=== PATIENT | male | born 1955 | race Caucasian/White ===

== ENCOUNTER → 2019-07-14 09:28 | Outpatient (CLI) | payer OTHER, SELFPAY ==
[2019-07-14 09:16] VITALS: BMI 42.9
--- NOTE | 2019-07-14 09:28 | RAD_ITS ---
STUDY: X-RAY - RIGHT KNEE REASON FOR EXAM: Chronic pain. TECHNIQUE: 4 view(s) of the knee. COMPARISON: None. FINDINGS: Normal visualized distal femur. Normal visualized proximal tibia and fibula. Normal proximal tibiofibular articulation. There is mild lateral subluxation of the tibia with respect to the femur. There is moderately severe joint space narrowing of the medial femorotibial compartment. Normal lateral femorotibial compartment. There are small marginal osteophytes with mild joint space narrowing of the patellofemoral articulation. The soft tissue structures are unremarkable. RAD/Knee 4 or More Views IMPRESSION: Arthrosis of the medial femorotibial and patellofemoral compartments. Electronically Signed: Dipak Dalton MD at 10:12 EST Tel , Service support ,
--- NOTE | 2019-07-14 09:28 | RAD_ITS ---
STUDY: X-RAY - LEFT KNEE REASON FOR EXAM: Chronic pain. TECHNIQUE: 4 view(s) of the knee. COMPARISON: None. FINDINGS: Normal visualized distal femur. Normal visualized proximal tibia and fibula. Normal proximal tibiofibular articulation. There is mild lateral subluxation of the tibia with respect to the femur. There is moderately severe joint space narrowing of the medial femorotibial compartment. Normal lateral femorotibial compartment. Normal patellofemoral articulation. The soft tissue structures are unremarkable. RAD/Knee 4 or More Views IMPRESSION: Arthrosis of the medial femorotibial compartment. Electronically Signed: Dipak Dalton MD at 10:11 EST Tel , Service support ,
== END ==
PROVIDERS: Family Provider Internal Medicine; PCP Preventive Medicine Occupational Medicine; Referring Provider Orthopaedic Surgery; Visit Provider Orthopaedic Surgery
DX: M25.561 Pain in right knee (principal); M25.562 Pain in left knee
CPT/HCPCS: 73564

== ENCOUNTER 2020-07-04 10:00 | Outpatient (RCR) | payer OTHER, SELFPAY ==
[2020-04-15 13:00] VITALS: BMI 42.9
--- NOTE | 2020-06-08 10:28 | HP.PTEVAL_ITS ---
Patient's Visit Information JOANNE ODELL is a 65 year old M referred to Physical Therapy by Dr. Uzair Malcolm DO with a diagnosis of Hamstring Pain/Tear. Date of Evaluation: 06/08/20 Physical Therapist: Rashmi Johnson DPT - Visit Plan Frequency: 2x /Week Duration: 4 Weeks Plan: Focus on core strength/stabilization and LE strength and flexibility. - Subjective Patient reports that he sees the MD every 90 days for injections in his knees due to OA- he was getting into a lower car and the seat was to far forwards and felt something snap in his right hip- May 17. Feels like the pain is getting better. After he is on his legs for about 15-20 minutes he has a lot of pain down the leg. No problems getting in/out of bigger cars. Pain is located in the right hip and the radiates to the knee. Worst: 5/10 Agg: being on his feet for 15 min or more it starts to get worse. Has to slide his foot instead of bending it to pull through swing phase. Best: 0/10 Eases: sitting. Takes about 20-25 minutes for the pain to go away after he sits down. Describes the pain as dull and achy. Went to the chiro and it did not help. No x-rays or MRI of the hip or lumbar spine. Chiro thinks pinched nerve Dr. Cruz things he snapped a muscle. 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 Has been going to chiro since the 3rd grade- normally goes 1x every 2-3 months but lately he has been going more. Denied MRI wants him to do therapy first. Sleeps in recliner due to leg cramps- so it does not wake him up throughout the night. PMHx/Meds: see scanned in chart. - Objective Posture: FH, RS, increased kyphosis- can correct with verbal cues but does not maintain. Gait: antalgic- decreased stance on the right LE- poor heel/toe pattern and push off. Straight leg on the right. HR/TR: able with UE A- reports pain with TR. SLS: weight shift but unable to SLS. ROM: WFL in all planes of the lumbar spine, hip and LE. Strength: Core: poor, Hip: Flexion: 3+/5, Abd: 4- /5, Extn:4/5, Add: 4-/5, IR/ER: 2+/5 with pain in all directions, Knee: 4+/5 pain with flexion, Ankle: 5/5. Flex: HS: severe, Gastroc: severe. Sensation/Reflex: WFL. Palpatoin: tender along greater troch. Special Test: Slump: positive on the right, Dural Signs: positive on the right, MARIBEL: positive, Scour: negative - Goals Goal 1:: Patient will be I with HEP and progression Goal Time Frame: 4-6 Weeks Goal 2:: Patient will ambulate >300 feet with a normalized gait pattern Goal Time Frame: 4-6 Weeks Goal 3:: Patient will asc/desc 8 stairs with 1 HR and a reciprocal gait pattern Goal Time Frame: 4-6 Weeks Goal 4:: Patient will report no radiating pain for 1 week Goal Time Frame: 4-6 Weeks - Rehabilitation Potential Physical Therapy Diagnosis: Patient presents with hypmobility- he has decreased ROM, strength, flex and muscular endurance leading to poor posture and increased pain with ADL's. Rehabilitation Potential: Fair - Anticipated Interventions Patient/Client Instruction: Educate patient on: Benefits of Fitness Program Therapeutic Exercise to Include: Strength training, Endurance training, Balance training, Agility training, Body mechanics, Postural training, Flexibilty training, Gait and locomotor training, Neuromotor development, Passive ROM, Active ROM, Dynamic Lumbar Stabilization For the Purpose of:: To improve muscle performance and motor function TENS: Yes Cryotherapy (ice pack, ice massage): Yes Thermo therapy (hot pack): Yes Ultrasound (thermal/non thermal): Yes Thank you for the opportunity to evaluate your patient. For Medicare and Medicare HMO plans, please review the plan of care and approve it. It will need to be FAXED BACK to us at [phone] for Medicare purposes. For Medicare only, by signing this I certify the plan of care. Please let me know if there are questions or concerns regarding this plan of care. Physician Signature: Date:
--- NOTE | 2020-07-04 10:38 | HP.PTDCSUM ---
It has been my pleasure to treat JOANNE ODELL referred by Dr. Uzair Malcolm DO, with the diagnosis of Hamstring Pain/Tear for a total of 7 visit(s). Discharge Date: Please see the following information for a summary of their discharge status. Subjective: Patient reports that he is getting better but he had a reaction to the medication for his DM medication- he stopped taking it and its slowly getting better. Is back to work and the 5/10 pain comes and goes when he is up and moving. R hip and HS Pain Intensity (Out of 10): 7 % Improvement: 90 Objective/Function: Posture: FH, RS, increased kyphosis- can correct with verbal cues. Gait: slightly antalgic- decreased stance on the right LE- poor heel/toe pattern and push off. HR/TR: able with UE A. SLS: 5 seconds ROM: WFL in all planes of the lumbar spine, hip and LE. Strength: Core: fair, Hip: Flexion: 4+/5, Abd: 4+/5, Extn:4+/5, Add: 4+/5, IR/ER: 3/5, Knee: 5/5 pain with flexion, Ankle: 5/5. Flex: HS: severe, Gastroc: severe. Sensation/Reflex: WFL. Special Test: Slump: positive on the right, Dural Signs: positive on the right, MARIBEL: positive, Scour: negative Goal 1:: Patient will be I with HEP and progression Goal Progress: Goal Met Goal 2:: Patient will ambulate >300 feet with a normalized gait pattern Goal Progress: Progressing Goal 3:: Patient will asc/desc 8 stairs with 1 HR and a reciprocal gait pattern Goal Progress: Progressing Goal 4:: Patient will report no radiating pain for 1 week Goal Progress: Progressing Plan: Discharge to home exercise program If there are questions or concerns regarding this patient's physical therapy, please feel free to call me at [phone]. Thank you for the referral of this patient. Sincerely, Rashmi Johnson DPT
== END 2020-07-04 19:00 | disposition home or self-care (01) ==
LOC: PT 10:00
PROVIDERS: PCP Preventive Medicine Occupational Medicine; Referring Provider Preventive Medicine Occupational Medicine; Visit Provider Preventive Medicine Occupational Medicine
DX: S76.8 Injury of other specified muscles, fascia and tendons at thigh level (principal)
CPT/HCPCS: 97035; 97110; 97162; 97164

== ENCOUNTER 2025-04-07 08:15 | Outpatient (RCR) | payer OTHER, SELFPAY ==
[2025-03-31 08:11] VITALS: BP 139/79; PULSE 52; RESP 18; TEMP 35.9; BMI 41.9
--- NOTE | 2025-03-31 09:13 | PCM.WC.HP ---
History of Present Illness Date of Service: 03/31/25 Chief Complaint: Full-thickness wound right posterior leg History of Wound: Patient sustained a dog bite approximately 1 to 2 weeks ago was seen at an outside hospital and sent to the wound care center for further evaluation. Progress of Wound: Patient is a 70-year-old diabetic male presenting to wound care center today for follow-up evaluation of full-thickness wound to the posterior right leg secondary to dog bite. Patient was outside of his home where he usually is greeted by the neighbors dog but unfortunately had an incident with the neighbors dog where he sustained a dog bite to the posterior right leg. He was seen at [facility] admitted for 3 days of IV antibiotics. No treatment from a surgical standpoint was performed. Patient was been placed on Augmentin for a few days then due to susceptibility was changed to Keflex but still admits to some redness to the periwound as well as some drainage. Patient has been doing self dressing changes with mupirocin cream and bordered foam with not much improvement. Had blood sugars well-controlled. He does admit to trauma. Denies constitutional symptoms. No other pedal complaints at this time. [facility] Home Medications Medication Instructions Recorded Last Taken Type metformin 500 mg tablet 500 mg PO BID 07/14/19 Unknown History acetaminophen 650 mg 650 mg PO Q12H 03/16/21 Unknown History tablet,extended release (Tylenol Arthritis Pain) carbidopa 10 mg-levodopa 100 mg 3 tab PO QHS 03/16/21 Unknown History tablet multivitamin (Multiple Vitamins 1 tab PO DAILY 03/16/21 Unknown History tablet) tramadol 50 mg tablet 150 mg PO QHS #120 tabs 03/16/21 Unknown History meclizine 25 mg tablet 25 mg PO 09/24/22 Unknown History apixaban 5 mg tablet (Eliquis) 5 mg PO BID 02/11/23 Unknown History clopidogrel 75 mg tablet 75 mg PO DAILY 02/11/23 Unknown History dofetilide 125 mcg capsule 125 mcg PO BID 02/11/23 Unknown History ezetimibe 10 mg tablet 10 mg PO DAILY 02/11/23 Unknown History furosemide 40 mg tablet 40 mg PO BID 02/11/23 Unknown History magnesium oxide 400 mg (241.3 mg 400 mg PO DAILY 02/11/23 Unknown History magnesium) tablet metoprolol succinate 25 mg 25 mg PO DAILY 02/11/23 Unknown History tablet,extended release 24 hr potassium chloride 20 mEq 20 meq PO DAILY 02/11/23 Unknown History tablet,extended release(part/cryst) (Klor-Con M) sacubitril 24 mg-valsartan 26 mg 1 tab PO BID 02/11/23 Unknown History tablet (Entresto) dulaglutide 0.75 mg/0.5 mL 0.75 mg subcut 02/20/23 Unknown History subcutaneous pen injector (Trulicity) cefdinir 300 mg capsule 300 mg PO BID 2 weeks #28 caps 03/31/25 Unknown Rx minocycline 100 mg capsule 100 mg PO BID 2 weeks #29 caps 03/31/25 Unknown Rx Allergy/AdvReac Type Severity Reaction Status Date / Time aspirin AdvReac Mild upset Verified 03/31/25 08:03 stomach ibuprofen AdvReac Mild upset Verified 03/31/25 08:03 stomach Cxyjcqc-FCG-RvW Reductase AdvReac Mild locking Verified 03/31/25 08:03 Inhibitor (Dliejtq-Xny-Pec joints Reductase Inhibitor) simvastatin (From Zocor) AdvReac locking Verified 03/31/25 08:03 joints Surgical History History of heart artery stent Social History Smoking Status: Former smoker Vital Signs Vital Signs Vital Signs: 03/31/25 08:11 Temperature 96.7 F L Temperature Source Temporal Pulse Rate 52 L Respiratory Rate 18 Blood Pressure 139/79 H Blood Pressure Mean 99 Blood Pressure Source Monitor Blood Pressure Position Semi-Fowlers Blood Pressure Location Right Arm Oxygen Delivery Method Room Air Weight Weight: 117.934 kg Body Mass Index (BMI) 41.9 Physical Exam Narrative Vascular: DP and PT pulses are palpable to right lower extremity. CFT is brisk. Skin temperature gradient is warm to warm from proximal ankle to distal digits. Evidence of blanchable erythema to periwound to the right posterior leg. Neurological: Light touch is intact. Protective station is diminished. Patient does respond to painful stimuli. Dermatological: Full-thickness wound to the posterior right leg measuring 3.2 x 4.2 x 2.3 cm. Wound base is fibrogranular nature with tunneling in the 12:00 3:00 and 6:00 location to the posterior right leg. No malodor or drainage. Erythema to periwound which is blanchable. Excisional debridement down to including subcutaneous tissue, fascia and muscle with a number 5 mm dermal curette to the right posterior leg done without incident. Predebridement measurement was eschar. Postdebridement measurement was 3.2 x 4.2 x 2.3 cm. Musculoskeletal: Muscle strength is 5 out of 5 in all quadrants right lower extremity. Mild pain to palpation of the full-thickness wound to the right posterior leg. No pain with calf pressure. Debridement Note Debridement Note Debridement Free Text: Excisional debridement down to including subcutaneous tissue, fascia and muscle with a number 5 mm dermal curette to the right posterior leg done without incident. Predebridement measurement was eschar. Postdebridement measurement was 3.2 x 4.2 x 2.3 cm. Post-Debridement Measurements and Additional Note: Post-Debridement Measurements/Treatment WC - Nurse 1 - General Ulcer Assessment Start: 03/31/25 08:10 Freq: Status: Active Protocol: JOSÉ LUIS Activity Type Activity Date Activity User E-sign Co-sign Detail Recorded Client Recorded Date Recorded By Document 03/31/25 08:11 KW [id number] 03/31/25 08:21 KW 03/31/25 08:11 - Today's Visit Information Type of service Initial Visit Arrival Mode Ambulatory Patient Identification Verified (Name & Yes ) Height and Weight Height 5 ft 6 in Weight 117.934 kg Weight in Pounds 260.0 lbs Weight Measurement Method Estimated by Patient Body Mass Index (BMI) 41.9 BMI Classification Obese Vital Signs Temperature (97.8 F-99.1 F) 96.7 F L Temperature Source Temporal Pulse Rate (60-100) 52 L Pulse Location Monitor Respiratory Rate (12-18) 18 Respiratory rate source Observation Oxygen Delivery Method Room Air Blood Pressure (90/60-120/80) 139/79 H Blood Pressure Mean 99 Source Monitor Position Semi-Fowlers Blood Pressure Location Right Arm History Since Last Visit- (Skip if this is Patient's initial visit) Left Footwear Regular Shoe Right Footwear Regular Shoe Pain Scale: 0-10 Numeric Is Patient Pain Free? Yes Communication Assessment Preferred language Spanish Animal Biologist Required No Able to Read Yes Able to Write Yes Communication Tools None Caregiver Communication Skills No Impairment Impairment Right Hearing Abillity Normal Left Hearing Abillity Normal Visual Assistive Devices Glasses Teaching Assessment Preferences Verbal,Written, Demonstration Barriers to Learning None Readiness To Learn Excellent Willingness to Engage in Self Management High Activies Readiness to Engage in Self Management High Activities Anxiety Level Calm Cooperation Cooperative Perception Coherent Interest in Health Problem Asks Questions Education Importance Acknowledges Need Does Patient Smoke tobacco or other Yes substances Smoking Status Former smoker Is Patient Diabetic Yes Functional Assessment Recent Decline in Ability to Perform Denies Any Declines WC - Nurse 1 - General Ulcer Measurement Start: 03/31/25 08:10 Freq: Status: Active Protocol: Activity Type Activity Date Activity User E-sign Co-sign Detail Recorded Client Recorded Date Recorded By Document 03/31/25 08:11 NAOMI [id number] 03/31/25 08:21 NAOMI 03/31/25 08:11 Wound Center Nurse 1 #1 r post le cluster -Current Size (cm) - Length 4 -Current Size (cm) - Width 6 -Current Size (cm) - Depth 0.2 -Total Square Cm 24 -Date of Last Picture (Recall this 03/31/25 field) -Exudate Amt None Present -Wound Margin Distinct, Outline Attached -Granulation Amt None Present (0 %) -Necrosis Amt Large (67-100%) -Necrotic Tissue Type Adherent Slough -Texture (Armida-wound Skin Appearance) Assessed -Moisture (Armida-wound Skin Appearance) Assessed -Color (Armida-wound Skin Appearance) Assessed, Erythema -Temperature (Armida-wound Skin No Abnormality Appearance) (Pt Warm) -Tenderness on Palpation (Armida-wound No Skin Appearance) -Ulcer Cleansing Soap and Water -Foul Odor after Cleansing No -Anesthetic Used 5% Lidocaine Gel Right Calf (cm) 41 Right Ankle (cm) 27 - Nurse 2 - General Ulcer CM Notes Start: 03/31/25 08:10 Freq: Status: Active Protocol: Activity Type Activity Date Activity User E-sign Co-sign Detail Recorded Client Recorded Date Recorded By Document 03/31/25 08:36 ASAD [id number] 03/31/25 08:45 ASAD 03/31/25 08:36 Wound Center Nurse 2 #1 r post le cluster -Time 08:41 -Correct Patient Yes -Correct Side, Site, Position Yes -Correct Procedure Yes -Procedure Performed Yes -Type of Procedure Debridement -Clinical Debridement Muscle / Fascia -Tissue Removed Muscle -Post Debridement (cm) - Length 3.2 -Post Debridement (cm) - Width 4.2 -Post Debridement (cm) - Depth 2.3 -Total Square (Post) (cm) 13.44 -Area of Debridement (cm) - Length 3.2 -Area of Debridement (cm) - Width 4.2 -Total Square (Area) (cm) 13.44 -Tunneling No -Undermining/Tunneling No -Circular Undermining No -Wound/Ulcer Outcome Not Healed -Ulcer Cleansing Rinsed/ Irrigated with Saline -Foul Odor after Cleansing No -Bioengineered Tissue No -Bleeding Controlled with Pressure -Treatment Response Procedure Tolerated Well -Offloading No -Debridement - Muscle / Fascia, 1st Yes 20sq cm Pain Scale: 0-10 Numeric Is Patient Pain Free? Yes - Nurse 3 - General Ulcer D/C NN Start: 03/31/25 08:10 Freq: Status: Active Protocol: Activity Type Activity Date Activity User E-sign Co-sign Detail Recorded Client Recorded Date Recorded By Document 03/31/25 08:56 [id number] 03/31/25 09:04 03/31/25 08:56 Wound Care Center Nurse 3 #1 r post le cluster -Other Dressing betadine gauze -Primary Dressing Covered/Secured with Dry Gauze & Roll Gauze, Secured with Tape RLE -Tubular Bandage Double Layer -Size of Tubigrip Used Size E -Size E ($) 2 Pain Scale: 0-10 Numeric Is Patient Pain Free? 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 All findings were discussed with the patient. All questions were answered to the patient's satisfaction. Excisional debridement down to including subcutaneous tissue, fascia and muscle with a number 5 mm dermal curette to the right posterior leg done without incident. Predebridement measurement was eschar. Postdebridement measurement was 3.2 x 4.2 x 2.3 cm. The area was flushed with sterile saline and culture was taken. The area was dressed with Betadine soaked gauze dry sterile dressing and compression wrap. I received a fax from the patient's office where the culture was taken and showed evidence of polymicrobial growth with susceptibility to cephalosporins and minocycline. The patient will be placed on cefdinir 300 mg twice daily for 2 weeks as well as minocycline 100 mg twice daily for 2 weeks. Educated the patient to take a probiotic. Educated patient on strict blood sugar control. If the patient is not improving in the next 1 to 2 weeks we will recommend surgical washout. Follow-up at the wound care center with Dr. Conte in 1 week. (2) Chronic painful diabetic polyneuropathy: CODE(S): E11.42 - Type 2 diabetes mellitus with diabetic polyneuropathy
--- NOTE | 2025-04-01 08:17 | WC ---
PHOTO-R POST LE 03/31/25
[2025-04-07 08:08] VITALS: BP 138/71; PULSE 53; RESP 18; TEMP 36; BMI 41.9
--- NOTE | 2025-04-07 10:59 | PCM.WC.PN ---
History of Present Illness Date of Service: 04/07/25 Chief Complaint: Full-thickness wound right posterior leg History of Wound: Patient sustained a dog bite approximately 1 to 2 weeks ago was seen at an outside hospital and sent to the wound care center for further evaluation. Progress of Wound: Stable full-thickness wound posterior right ankle Subjective Subjective Patient is a 70-year-old diabetic male presenting to wound care center today for follow-up evaluation of full-thickness wound to posterior right leg secondary to a dog bite. Patient has been taking the antibiotics as prescribed. He is doing dressing changes daily as discussed. His blood sugars well-controlled. He denies any new onset of trauma. Denies constitutional symptoms. No other pedal complaints at this time. Objective Data Objective Data Vital Signs: Vital Signs Temp Pulse Resp BP O2 Del Method 96.8 F L 53 L 18 138/71 H Room Air 04/07/25 08:08 04/07/25 08:08 04/07/25 08:08 04/07/25 08:08 04/07/25 08:08 Oxygen Delivery Method Room Air Weight: 117.934 kg Body Mass Index (BMI) 41.9 Lab / Micro Data Micro: Microbiology 03/31/25 08:40 Ulcer, Decubitus - Leg, Right Gram Stain - Final 03/31/25 08:40 Ulcer, Decubitus - Leg, Right Wound Culture - Final Providencia rettgeri Staphylococcus epidermidis Yeast, not Juliet albicans 03/31/25 08:40 Ulcer, Decubitus - Leg, Right Anaerobic Culture - Preliminary Checking for anaerobes, further studies to follow. Physical Exam Narrative Vascular: DP and PT pulses are palpable to right lower extremity. CFT is brisk. Skin temperature gradient is warm to warm from proximal ankle to distal digits. Periwound erythema which is blanchable and has improved since previous visit. Neurological: Light touch is intact. Protective station is diminished. Patient does respond to painful stimuli. Dermatological: Full-thickness wound to the posterior right leg measuring 3.0 x 3.7 x 2.0 cm. Wound base is fibrogranular nature. Tunneling only in the 6:00 direction. No malodor. No drainage. Periwound erythema is blanchable as well as improved. Excisional debridement down to including subcutaneous tissue, fascia and muscle with a number 5 mm dermal curette to the right posterior leg done without incident. Predebridement measurement was 2.8 x 3.5 x 0.8 cm. Postdebridement measurement was 3.0 x 3.7 x 2.0 cm. Musculoskeletal: Muscle strength is 5 out of 5 in all quadrants right lower extremity. Mild pain to palpation of the full-thickness wound to the right posterior leg. No pain with calf pressure. Debridement Note Debridement Note Debridement Free Text: Excisional debridement down to including subcutaneous tissue, fascia and muscle with a number 5 mm dermal curette to the right posterior leg done without incident. Predebridement measurement was 2.8 x 3.5 x 0.8 cm. Postdebridement measurement was 3.0 x 3.7 x 2.0 cm. 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 ) Arrival Mode Ambulatory Ambulatory Accompanied by brother Patient Identification Verified (Name & Yes Yes ) Height and Weight Height 5 ft 6 in Weight 117.934 kg Weight in Pounds 260.0 lbs Weight Measurement Method Estimated by Patient Body Mass Index (BMI) 41.9 41.9 BMI Classification Obese Obese Vital Signs Temperature (97.8 F-99.1 F) 96.7 F L 96.8 F L Temperature Source Temporal Temporal Pulse Rate (60-100) 52 L 53 L Pulse Location Monitor Monitor Respiratory Rate (12-18) 18 18 Respiratory rate source Observation Observation Oxygen Delivery Method Room Air Room Air Blood Pressure (90/60-120/80) 139/79 H 138/71 H Blood Pressure Mean (mm Hg) 99 93 Source Monitor Monitor Position Semi-Fowlers Sitting Blood Pressure Location Right Arm Left Arm History Since Last Visit- (Skip if this is Patient's initial visit) Have you changed medications since your No last visit? Any new allergies or adverse reactions No Had a fall/change in ADL's that may No increase risk of falls Signs or symptoms of abuse and/or No neglect since last visit Have you been in the hospital since your No last visit? Has dressing in place as prescribed Yes Has compression in place as prescribed Yes Has offloadiing in place as prescribed N/A Experienced any changes in pain level or No management Left Footwear Regular Shoe Regular Shoe Right Footwear Regular Shoe Regular Shoe Pain Scale: 0-10 Numeric Is Patient Pain Free? 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 Required No Able to Read Yes Able to Write Yes Communication Tools None Caregiver Communication Skills No Impairment Impairment Right Hearing Abillity Normal Left Hearing Abillity Normal Visual Assistive Devices Glasses Teaching Assessment Preferences Verbal,Written, Demonstration Barriers to Learning None Readiness To Learn Excellent Willingness to Engage in Self Management High Activies Readiness to Engage in Self Management High Activities Anxiety Level Calm Cooperation Cooperative Perception Coherent Interest in Health Problem Asks Questions Education Importance Acknowledges Need Does Patient Smoke tobacco or other Yes substances Smoking Status Former smoker Is Patient Diabetic Yes Functional Assessment Recent Decline in Ability to Perform Denies Any Declines WC - Nurse 1 - General Ulcer Measurement Start: 03/31/25 08:10 Freq: Status: Active Protocol: Activity Type Activity Date Activity User E-sign Co-sign Detail Recorded Client Recorded Date Recorded By Document 03/31/25 08:11 [id number] 03/31/25 08:21 KW Document 04/07/25 08:08 [id number] 04/07/25 08:16 KW 03/31/25 04/07/25 08:11 08:08 Wound Center Nurse 1 #1 r post le cluster -Current Size (cm) - Length 4 3.5 -Current Size (cm) - Width 6 5 -Current Size (cm) - Depth 0.2 2 -Total Square Cm 24 17.5 -Date of Last Picture (Recall this 03/31/25 04/07/25 field) -Exudate Amt None Present Small -Exudate Type Serosanguineous -Wound Margin Distinct, Thickened Outline Attached -Granulation Amt None Present (0 Medium (34-66%) %) -Granulation Quality [place] -Necrosis Amt Large (67-100%) Medium (34-66%) -Necrotic Tissue Type Adherent Slough Adherent Slough -Texture (Armida-wound Skin Appearance) Assessed Assessed -Moisture (Armida-wound Skin Appearance) Assessed Assessed -Color (Armida-wound Skin Appearance) Assessed, Assessed Erythema -Temperature (Arm[place]-wound Skin No Abnormality No Abnormality Appearance) (Pt Warm) (Pt Warm) -Tenderness on Palpation (Armida-wound No No Skin Appearance) -Ulcer Cleansing Soap and Water Soap and Water -Foul Odor after Cleansing No No -Anesthetic Used 5% Lidocaine 5% Lidocaine Gel Gel Right Calf (cm) 41 43 Right Ankle (cm) 27 22.5 - Nurse 2 - General Ulcer CM Notes Start: 03/31/25 08:10 Freq: Status: Active Protocol: Activity Type Activity Date Activity User E-sign Co-sign Detail Recorded Client Recorded Date Recorded By Document 03/31/25 08:36 [id number] 03/31/25 08:45 Document 04/07/25 08:24 [id number] 04/07/25 08:26 03/31/25 04/07/25 08:36 08:24 Wound Center Nurse 2 #1 r post le cluster -Time 08:41 08:24 -Correct Patient Yes Yes -Correct Side, Site, Position Yes Yes -Correct Procedure Yes Yes -Procedure Performed Yes Yes -Type of Procedure Debridement Debridement -Clinical Debridement Muscle / Fascia Muscle / Fascia -Tissue Removed Muscle Muscle -Post Debridement (cm) - Length 3.2 3.0 -Post Debridement (cm) - Width 4.2 3.7 -Post Debridement (cm) - Depth 2.3 2 -Total Square (Post) (cm) 13.44 11.10 -Area of Debridement (cm) - Length 3.2 3 -Area of Debridement (cm) - Width 4.2 3.7 -Total Square (Area) (cm) 13.44 11.1 -Tunneling No No -Undermining/Tunneling No No -Circular Undermining No No -Wound/Ulcer Outcome Not Healed Not Healed -Ulcer Cleansing Rinsed/ Rinsed/ Irrigated with Irrigated with Saline Saline -Foul Odor after Cleansing No No -Bioengineered Tissue No No -Bleeding Controlled with Pressure Pressure -Treatment Response Procedure Procedure Tolerated Well Tolerated Well -Offloading No No -Debridement - Muscle / Fascia, 1st Yes Yes 20sq cm Pain Scale: 0-10 Numeric Is Patient Pain Free? Yes Yes - Nurse 3 - General Ulcer D/C NN Start: 03/31/25 08:10 Freq: Status: Active Protocol: Activity Type Activity Date Activity User E-sign Co-sign Detail Recorded Client Recorded Date Recorded By Document 03/31/25 08:56 KW [id number] 03/31/25 09:04 KW Document 04/07/25 08:36 KW [id number] 04/07/25 08:36 KW 03/31/25 04/07/25 08:56 08:36 Wound Care Center Nurse 3 #1 r post le cluster -Other Dressing betadine gauze betadine soaked gauze -Primary Dressing Covered/Secured with Dry Gauze & Dry Gauze & Roll Gauze, Roll Gauze, Secured with Secured with Tape Tape RLE -Tubular Bandage Double Layer Double Layer -Size of Tubigrip Used Size E Size E -Size E ($) 2 2 Pain Scale: 0-10 Numeric Is Patient Pain Free? 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 All findings were discussed with the patient. All questions were answered to the patient's satisfaction. Excisional debridement down to including subcutaneous tissue, fascia and muscle with a number 5 mm dermal curette to the right posterior leg done without incident. Predebridement measurement was 2.8 x 3.5 x 0.8 cm. Postdebridement measurement was 3.0 x 3.7 x 2.0 cm. The area was wiped clean and patted dry. Betadine soaked gauze followed by dry sterile dressing compression wrap was donned to the right lower extremity. Patient continue daily dressing changes. Patient will continue oral antibiotics as prescribed until gone. Educated patient on strict blood sugar control. No plan for surgical intervention at this time. Will continue to monitor progression of wound and determine when surgery will be necessary. Follow-up at the wound care center with Dr. Conte in 1 week. (2) Chronic painful diabetic polyneuropathy: CODE(S): E11.42 - Type 2 diabetes mellitus with diabetic polyneuropathy
--- NOTE | 2025-04-08 09:26 | WC ---
PHOTO-RIGHT POST LE 04/07/25
== END 2025-04-08 23:59 | disposition home or self-care (01) ==
LOC: WC 08:15
PROVIDERS: PCP Nurse Practitioner Family; Referring Provider Nurse Practitioner Family; Visit Provider Podiatrist Foot & Ankle Surgery
DX: E11.622 Type 2 diabetes mellitus with other skin ulcer (principal); L97.813 Non-pressure chronic ulcer of other part of right lower leg with necrosis of muscle; E11.42 Type 2 diabetes mellitus with diabetic polyneuropathy; Z79.899 Other long term (current) drug therapy; Z87.891 Personal history of nicotine dependence; Z79.02 Long term (current) use of antithrombotics/antiplatelets; Z79.85 Long-term (current) use of injectable non-insulin antidiabetic drugs; Z95.5 Presence of coronary angioplasty implant and graft
CPT/HCPCS: 11043; 87070; 87075; 87077; 87186; 87205; 99214; G0463

== ENCOUNTER 2025-05-05 08:15 | Outpatient (RCR) | payer OTHER, SELFPAY ==
[2025-04-14 08:07] VITALS: BP 125/61; PULSE 97; RESP 14; TEMP 35.8
--- NOTE | 2025-04-14 08:28 | PCM.WC.PN ---
History of Present Illness Date of Service: 04/14/25 Chief Complaint: Full-thickness wound right posterior leg History of Wound: Patient sustained a dog bite approximately 1 to 2 weeks ago was seen at an outside hospital and sent to the wound care center for further evaluation. Progress of Wound: Stable full-thickness wound posterior right leg no sign of infection. Subjective Subjective Patient is a 70-year-old diabetic male presenting to wound care center today follow-up evaluation of full-thickness wound secondary to dog bite to the posterior right leg. Patient has been compliant with dressing changes. He admits improvement to the wound. He is on his last antibiotics. He denies any new onset of trauma. He denies constitutional symptoms. No other pedal complaints at this time. Objective Data Objective Data Vital Signs: Vital Signs Temp Pulse Resp BP 96.5 F L 97 14 125/61 H 04/14/25 08:07 04/14/25 08:07 04/14/25 08:07 04/14/25 08:07 Lab / Micro Data Micro: Microbiology 03/31/25 08:40 Ulcer, Decubitus - Leg, Right Gram Stain - Final 03/31/25 08:40 Ulcer, Decubitus - Leg, Right Wound Culture - Final Providencia rettgeri Staphylococcus epidermidis Yeast, not Juliet albicans 03/31/25 08:40 Ulcer, Decubitus - Leg, Right Anaerobic Culture - Preliminary Checking for anaerobes, further studies to follow. Physical Exam Narrative Vascular: DP and PT pulses are palpable to right lower extremity. CFT is brisk. Skin temperature gradient is warm to warm from proximal ankle to distal digits. Periwound erythema which is blanchable and has improved since previous visit. +1 pitting edema to the right lower extremity. Neurological: Light touch is intact. Protective station is diminished. Patient does respond to painful stimuli. Dermatological: Full-thickness wound to the posterior right leg measuring 3.1 x 3.9 x 0.3 cm. Wound base is fibrogranular nature. No tunneling. No malodor. No drainage. Excisional debridement down to including subcutaneous tissue, fascia and muscle with a number 5 mm dermal curette to the right posterior leg done without incident. Predebridement measurement was 3.0 x 3.7 x 0.2 cm. Postdebridement measurement was 3.1 x 3.9 x 0.3 cm. Musculoskeletal: Muscle strength is 5 out of 5 in all quadrants right lower extremity. No pain to palpation to full-thickness wound. No pain with calf pressure. Debridement Note Debridement Note Debridement Free Text: Excisional debridement down to including subcutaneous tissue, fascia and muscle with a number 5 mm dermal curette to the right posterior leg done without incident. Predebridement measurement was 3.0 x 3.7 x 0.2 cm. Postdebridement measurement was 3.1 x 3.9 x 0.3 cm. 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 Any new allergies or adverse reactions No Had a fall/change in ADL's that may No increase risk of falls Signs or symptoms of abuse and/or No neglect since last visit Have you been in the hospital since your No last visit? Has dressing in place as prescribed Yes Has compression in place as prescribed Yes Has offloadiing in place as prescribed No Experienced any changes in pain level or No management Pain Scale: 0-10 Numeric Is Patient Pain Free? Yes CHRISTOPHE - Nurse 1 - General Ulcer Measurement Start: 04/14/25 08:07 Freq: Status: Active Protocol: Activity Type Activity Date Activity User E-sign Co-sign Detail Recorded Client Recorded Date Recorded By Document 04/14/25 08:07 ML [id number] 04/14/25 08:17 ML 04/14/25 08:07 Wound Center Nurse 1 #1 r post le cluster -Current Size (cm) - Length 3.5 -Current Size (cm) - Width 4.0 -Current Size (cm) - Depth 0.3 -Total Square Cm 14.00 -Date of Last Picture (Recall this 04/14/25 field) -Photo Taken Yes -Epithelialization Small 1-33% -Tunneling No -Undermining/Tunneling No -Circular Undermining No -Exudate Amt Medium -Exudate Type Serosanguineous -Wound Margin Distinct, Outline Attached -Granulation Amt Medium (34-66%) -Granulation Quality [place] -Necrosis Amt Medium (34-66%) -Texture (Armida-wound Skin Appearance) Assessed -Moisture (Armida-wound Skin Appearance) Assessed -Color (Armida-wound Skin Appearance) Assessed -Temperature (Arm[place]-wound Skin No Abnormality Appearance) (Pt Warm) -Tenderness on Palpation (Armida-wound No Skin Appearance) -Ulcer Cleansing Soap and Water -Foul Odor after Cleansing No -Anesthetic Used 5% Lidocaine Gel WC - Nurse 2 - General Ulcer CM Notes Start: 04/14/25 08:07 Freq: Status: Active Protocol: Activity Type Activity Date Activity User E-sign Co-sign Detail Recorded Client Recorded Date Recorded By Document 04/14/25 08:24 JF [id number] 04/14/25 08:26 JF 04/14/25 08:24 Wound Center Nurse 2 -Time 08:24 -Correct Patient Yes -Correct Side, Site, Position Yes -Correct Procedure Yes -Procedure Performed Yes -Type of Procedure Debridement -Clinical Debridement Subcutaneous -Tissue Removed Subcutaneous -Post Debridement (cm) - Length 3.1 -Post Debridement (cm) - Width 3.9 -Post Debridement (cm) - Depth 0.3 -Total Square (Post) (cm) 12.09 -Area of Debridement (cm) - Length 3.0 -Area of Debridement (cm) - Width 3.9 -Total Square (Area) (cm) 11.70 -Tunneling No -Undermining/Tunneling No -Circular Undermining No -Wound/Ulcer Outcome Not Healed -Ulcer Cleansing Rinsed/ Irrigated with Saline -Foul Odor after Cleansing No -Bioengineered Tissue No -Bleeding Controlled with Pressure -Treatment Response Procedure Tolerated Well -Offloading No -Debridement - Subq, 1st 20sq cm Yes Pain Scale: 0-10 Numeric Is Patient Pain Free? 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 All findings were discussed with the patient. All questions were answered to the patient's satisfaction. Excisional debridement down to including subcutaneous tissue, fascia and muscle with a number 5 mm dermal curette to the right posterior leg done without incident. Predebridement measurement was 3.0 x 3.7 x 0.2 cm. Postdebridement measurement was 3.1 x 3.9 x 0.3 cm. The area was wiped clean and patted dry. Betadine soaked gauze followed by dry sterile dressing compression wrap was donned to the right lower extremity. Patient continue daily dressing changes. Patient will finish all his antibiotics as prescribed. Will begin authorization to the patient insurance for skin graft substitute due to the size and depth of the wound as well as to aid in efficient healing. Follow-up at the wound care center with Dr. Conte in 1 week. (2) Chronic painful diabetic polyneuropathy: CODE(S): E11.42 - Type 2 diabetes mellitus with diabetic polyneuropathy
--- NOTE | 2025-04-15 09:45 | WC ---
PHOTO-RIGHT POST LE 04/14/25
[2025-04-21 08:03] VITALS: BP 117/67; PULSE 55; RESP 18; TEMP 36.2
--- NOTE | 2025-04-21 08:37 | PN.PCM_ITS ---
History of Present Illness Date of Service: 04/21/25 Chief Complaint: Full-thickness wound right posterior leg History of Wound: Patient sustained a dog bite approximately 1 to 2 weeks ago was seen at an outside hospital and sent to the wound care center for further evaluation. Progress of Wound: Stable full-thickness wound posterior right leg no sign of infection. Subjective Subjective Patient is a 70-year-old diabetic male presenting to wound care center today for evaluation of posterior right leg wound. Patient has been doing dressing changes as discussed. He notes improvement to the wound. He mitts to swelling and some discomfort especially when standing on his feet for long peers of time. Overall he is grateful for his care. His blood sugars well-controlled. He denies trauma. Denies constitutional symptoms. Other pedal complaints at this time. Objective Data Objective Data Vital Signs: Vital Signs Temp Pulse Resp BP O2 Del Method 97.2 F L 55 L 18 117/67 Room Air 04/21/25 08:03 04/21/25 08:03 04/21/25 08:03 04/21/25 08:03 04/21/25 08:03 Oxygen Delivery Method Room Air Lab / Micro Data Micro: Microbiology 03/31/25 08:40 Ulcer, Decubitus - Leg, Right Gram Stain - Final 03/31/25 08:40 Ulcer, Decubitus - Leg, Right Wound Culture - Final Providencia rettgeri Staphylococcus epidermidis Yeast, not Juliet albicans 03/31/25 08:40 Ulcer, Decubitus - Leg, Right Anaerobic Culture - Preliminary Checking for anaerobes, further studies to follow. Physical Exam Narrative Vascular: DP and PT pulses are palpable to right lower extremity. CFT is brisk. Skin temperature gradient is warm to warm from proximal ankle to distal digits. Periwound erythema which is blanchable and has improved since previous visit. +1 pitting edema to the right lower extremity. Neurological: Light touch is intact. Protective station is diminished. Patient does respond to painful stimuli. Dermatological: Full-thickness wound to the posterior right leg measuring 4.0 x 4.2 x 0.4 cm. Wound base is fibrogranular nature. No tunneling. No malodor. No drainage. Excisional debridement down to including subcutaneous tissue, fascia and muscle with a number 5 mm dermal curette to the right posterior leg done without incident. Predebridement measurement was 3.8 x 4.0 x 0.3 cm. Postdebridement measurement was 4.0 x 4.2 x 0.4 cm. Musculoskeletal: Muscle strength is 5 out of 5 in all quadrants right lower ext remity. No pain to palpation to full-thickness wound. No pain with calf pressure. Debridement Note Debridement Note Debridement Free Text: Excisional debridement down to including subcutaneous tissue, fascia and muscle with a number 5 mm dermal curette to the right posterior leg done without incident. Predebridement measurement was 3.8 x 4.0 x 0.3 cm. Postdebridement measurement was 4.0 x 4.2 x 0.4 cm. Post-Debridement Measurements and Additional Note: Post-Debridement Measurements/Treatment WC - Nurse 1 - General Ulcer Assessment Start: 04/14/25 08:07 Freq: Status: Active Protocol: JOSÉ LUIS Activity Type Activity Date Activity User E-sign Co-sign Detail Recorded Client Recorded Date Recorded By Document 04/14/25 08:07 ML [id number] 04/14/25 08:17 ML Document 04/21/25 08:03 KW [id number] 04/21/25 08:09 KW 04/14/25 04/21/25 08:07 08:03 - Today's Visit Information Type of service Follow-up Visit Follow-up Visit (Physician/ASSISTED LIVING ADMINISTRATOR (Physician/ASSISTED LIVING ADMINISTRATOR ) ) Arrival Mode Ambulatory Ambulatory Transfer Assistance None Patient Identification Verified (Name & Yes Yes ) Patient Requires Transmission-Based No Precautions Vital Signs Temperature (97.8 F-99.1 F) 96.5 F L 97.2 F L Temperature Source Temporal Temporal Pulse Rate (60-100) 97 55 L Pulse Location Monitor Monitor Respiratory Rate (12-18) 14 18 Respiratory rate source Observation Observation Oxygen Delivery Method Room Air Blood Pressure (90/60-120/80) 125/61 H 117/67 Blood Pressure Mean (mm Hg) 82 83 Source Monitor Monitor Position Sitting Semi-Fowlers Blood Pressure Location Left Arm Right Arm History Since Last Visit- (Skip if this is Patient's initial visit) Have you changed medications since your No No last visit? Any new allergies or adverse reactions No No Had a fall/change in ADL's that may No No increase risk of falls Signs or symptoms of abuse and/or No No neglect since last visit Have you been in the hospital since your No No last visit? Has dressing in place as prescribed Yes Yes Has compression in place as prescribed Yes Yes Has offloadiing in place as prescribed No N/A Experienced any changes in pain level or No No management Left Footwear Regular Shoe Right Footwear Regular Shoe Pain Scale: 0-10 Numeric Is Patient Pain Free? Yes Yes WC - Nurse 1 - General Ulcer Measurement Start: 04/14/25 08:07 Freq: Status: Active Protocol: Activity Type Activity Date Activity User E-sign Co-sign Detail Recorded Client Recorded Date Recorded By Document 04/14/25 08:07 ML [id number] 04/14/25 08:17 ML Document 04/21/25 08:03 KW [id number] 04/21/25 08:09 KW Edit Result 04/21/25 08:03 KW (1) [id number] 04/21/25 08:09 KW (1) Right Calf (cm) => 47 Right Ankle (cm) => 26 04/14/25 04/21/25 08:07 08:03 Wound Center Nurse 1 #1 r post le cluster -Current Size (cm) - Length 3.5 3.5 -Current Size (cm) - Width 4.0 4.5 -Current Size (cm) - Depth 0.3 0.3 -Total Square Cm 14.00 15.75 -Date of Last Picture (Recall this 04/14/25 04/21/25 field) -Photo Taken Yes -Epithelialization Small 1-33% -Tunneling No -Undermining/Tunneling No -Circular Undermining No -Exudate Amt Medium Large -Exudate Type Serosanguineous Serosanguineous -Wound Margin Distinct, Distinct, Outline Outline Attached Attached -Granulation Amt Medium (34-66%) Large (67-100%) -Granulation Quality [place] Red -Necrosis Amt Medium (34-66%) Small (1-33%) -Necrotic Tissue Type Adherent Slough -Texture (Armida-wound Skin Appearance) Assessed Assessed -Moisture (Armida-wound Skin Appearance) Assessed Assessed -Color (Armida-wound Skin Appearance) Assessed Assessed, Erythema -Temperature (Armida-wound Skin No Abnormality No Abnormality Appearance) (Pt Warm) (Pt Warm) -Tenderness on Palpation (Armida-wound No No Skin Appearance) -Ulcer Cleansing Soap and Water Soap and Water -Foul Odor after Cleansing No No -Anesthetic Used 5% Lidocaine 5% Lidocaine Gel Gel Right Calf (cm) 47 Right Ankle (cm) 26 - Nurse 2 - General Ulcer CM Notes Start: 04/14/25 08:07 Freq: Status: Active Protocol: Activity Type Activity Date Activity User E-sign Co-sign Detail Recorded Client Recorded Date Recorded By Document 04/14/25 08:24 JF [id number] 04/14/25 08:26 JF Document 04/21/25 08:31 [id number] 04/21/25 08:32 JF 04/14/25 04/21/25 08:24 08:31 Wound Center Nurse 2 #1 r post le cluster -Time 08:24 08:31 -Correct Patient Yes Yes -Correct Side, Site, Position Yes Yes -Correct Procedure Yes Yes -Procedure Performed Yes Yes -Type of Procedure Debridement Debridement -Clinical Debridement Subcutaneous Subcutaneous -Tissue Removed Subcutaneous Subcutaneous -Post Debridement (cm) - Length 3.1 4 -Post Debridement (cm) - Width 3.9 4.2 -Post Debridement (cm) - Depth 0.3 0.4 -Total Square (Post) (cm) 12.09 16.8 -Area of Debridement (cm) - Length 3.0 4 -Area of Debridement (cm) - Width 3.9 4.2 -Total Square (Area) (cm) 11.70 16.8 -Tunneling No No -Undermining/Tunneling No No -Circular Undermining No No -Wound/Ulcer Outcome Not Healed Not Healed -Ulcer Cleansing Rinsed/ Rinsed/ Irrigated with Irrigated with Saline Saline -Foul Odor after Cleansing No No -Bioengineered Tissue No No -Bleeding Controlled with Pressure Pressure -Treatment Response Procedure Procedure Tolerated Well Tolerated Well -Offloading No No -Debridement - Subq, 1st 20sq cm Yes Yes Pain Scale: 0-10 Numeric Is Patient Pain Free? Yes Yes - Nurse 3 - General Ulcer D/C NN Start: 04/14/25 08:07 Freq: Status: Active Protocol: Activity Type Activity Date Activity User E-sign Co-sign Detail Recorded Client Recorded Date Recorded By Document 04/14/25 08:35 ML [id number] 04/14/25 08:36 ML 04/14/25 08:35 Wound Care Center Nurse 3 #1 r post le cluster -Ulcer Cleansing Soap and Water -Other Dressing betadine soaked gauze -Primary Dressing Covered/Secured with Dry Gauze & Roll Gauze, Secured with Tape RLE -Tubular Bandage Double Layer -Size of Tubigrip Used Size E -Size E ($) 2 Pain Scale: 0-10 Numeric Is Patient Pain Free? Yes Assessment/Plan Assessment/Plan (1) Chronic venous hypertension (idiopathic) with ulcer of right lower extremity: CODE(S): I87.311 - Chronic venous hypertension (idiopathic) with ulcer of right lower extremity; L97.919 - Non-pressure chronic ulcer of unspecified part of right lower leg with unspecified severity PLAN: Patient was examined and evaluated. All findings were discussed with the patie nt. All questions were answered to the patient's satisfaction. Excisional debridement down to including subcutaneous tissue, fascia and muscle with a number 5 mm dermal curette to the right posterior leg done without incident. Predebridement measurement was 3.8 x 4.0 x 0.3 cm. Postdebridement measurement was 4.0 x 4.2 x 0.4 cm.. The area was wiped clean and patted dry. Betadine soaked gauze followed by dry sterile dressing compression wrap was donned to the right lower extremity. Patient continue daily dressing changes. Will begin authorization to the patient insurance for skin graft substitute due to the size and depth of the wound as well as to aid in efficient healing. Follow-up at the wound care center with Dr. Conte in 1 week. 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
--- NOTE | 2025-04-22 09:22 | WC ---
PHOTO-RIGHT POST LE 04/21/25
--- NOTE | 2025-04-23 08:19 | WC ---
PHOTO-RIGHT POST. LE 04/21/25
[2025-04-28 08:02] VITALS: BP 108/54; PULSE 47; RESP 18; TEMP 36.1
--- NOTE | 2025-04-28 10:40 | PN.PCM_ITS ---
History of Present Illness Date of Service: 04/28/25 Chief Complaint: Full-thickness wound right posterior leg History of Wound: Patient sustained a dog bite approximately 1 to 2 weeks ago was seen at an outside hospital and sent to the wound care center for further evaluation. Progress of Wound: Stable full-thickness wound posterior right leg no sign of infection. Subjective Subjective Patient is a 70-year-old diabetic male presented wound care center follow-up valuation of full-thickness wound to the posterior right leg. Patient has been compliant with dressing changes admits to improvement to the wound. He was denied for amniotic skin graft substitute. Patient states that he has been compliant with dressing changes as well as compression. 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 Denies trauma. Denies constitutional symptoms. No other pedal complaints at this time. Objective Data Objective Data Vital Signs: Vital Signs Temp Pulse Resp BP O2 Del Method 96.9 F L 47 L 18 108/54 L Room Air 04/28/25 08:02 04/28/25 08:02 04/28/25 08:02 04/28/25 08:02 04/28/25 08:02 Oxygen Delivery Method Room Air Lab / Micro Data Micro: Microbiology 03/31/25 08:40 Ulcer, Decubitus - Leg, Right Gram Stain - Final 03/31/25 08:40 Ulcer, Decubitus - Leg, Right Wound Culture - Final Providencia rettgeri Staphylococcus epidermidis Yeast, not Juliet albicans 03/31/25 08:40 Ulcer, Decubitus - Leg, Right Anaerobic Culture - Preliminary Checking for anaerobes, further studies to follow. Physical Exam Narrative Vascular: DP and PT pulses are palpable to right lower extremity. CFT is brisk. Skin temperature gradient is warm to warm from proximal ankle to distal digits. Periwound erythema which is blanchable and has improved since previous visit. +1 pitting edema to the right lower extremity. Neurological: Light touch is intact. Protective station is diminished. Patient does respond to painful stimuli. Dermatological: Full-thickness wound to the posterior right leg measuring 4.1 x 4.5 x 0.5 cm. Wound base is fibrogranular nature. No tunneling. No malodor. No drainage. Excisional debridement down to including subcutaneous tissue, fascia and muscle with a number 5 mm dermal curette to the right posterior leg done without incident. Predebridement measurement was 3.9 x 4.3 x 0.3 cm. Postdebridement measurement was 4.1 x 4.5 x 0.5 cm. Musculoskeletal: No pain to palpation to full-thickness wound. No pain with calf pressure. Debridement Note Debridement Note Debridement Free Text: Excisional debridement down to including subcutaneous tissue, fascia and muscle with a number 5 mm dermal curette to the right posterior leg done without incident. Predebridement measurement was 3.9 x 4.3 x 0.3 cm. Postdebridement measurement was 4.1 x 4.5 x 0.5 cm. Post-Debridement Measurements and Additional Note: Post-Debridement Measurements/Treatment - Nurse 1 - General Ulcer Assessment Start: 04/14/25 08:07 Freq: Status: Active Protocol: MARLONEXJudy Activity Type Activity Date Activity User E-sign Co-sign Detail Recorded Client Recorded Date Recorded By Document 04/14/25 08:07 ML [id number] 04/14/25 08:17 ML Document 04/21/25 08:03 KW [id number] 04/21/25 08:09 KW Document 04/28/25 08:02 KW [id number] 04/28/25 08:09 KW Edit Result 04/28/25 08:02 KW (1) [id number] 04/28/25 08:10 KW (1) Pulse Rate (60-100) => 47 L Blood Pressure (90/60-120/80) => 108/54 L Blood Pressure Mean (mm Hg) => 72 04/14/25 04/21/25 04/28/25 08:07 08:03 08:02 - Today's Visit Information Type of service Follow-up Visit Follow-up Visit Follow-up Visit (Physician/AQUATICS COORDINATOR (Physician/AQUATICS COORDINATOR (Physician/AQUATICS COORDINATOR ) ) ) Arrival Mode Ambulatory Ambulatory Ambulatory Transfer Assistance None Accompanied by brother Patient Identification Verified (Name & Yes Yes Yes ) Patient Requires Transmission-Based No Precautions Vital Signs Temperature (97.8 F-99.1 F) 96.5 F L 97.2 F L 96.9 F L Temperature Source Temporal Temporal Temporal Pulse Rate (60-100) 97 55 L 47 L Pulse Location Monitor Monitor Monitor Respiratory Rate (12-18) 14 18 18 Respiratory rate source Observation Observation Observation Oxygen Delivery Method Room Air Room Air Blood Pressure (90/60-120/80) 125/61 H 117/67 108/54 L Blood Pressure Mean (mm Hg) 82 83 72 Source Monitor Monitor Monitor Position Sitting Semi-Fowlers Sitting Blood Pressure Location Left Arm Right Arm Right Forearm History Since Last Visit- (Skip if this is Patient's initial visit) Have you changed medications since your No No No last visit? Any new allergies or adverse reactions No No No Had a fall/change in ADL's that may No No No increase risk of falls Signs or symptoms of abuse and/or No No No neglect since last visit Have you been in the hospital since your No No No last visit? Has dressing in place as prescribed Yes Yes Yes Has compression in place as prescribed Yes Yes Yes Has offloadiing in place as prescribed No N/A N/A Experienced any changes in pain level or No No No management Left Footwear Regular Shoe Regular Shoe Right Footwear Regular Shoe Regular Shoe Pain Scale: 0-10 Numeric Is Patient Pain Free? Yes Yes Yes WC - Nurse 1 - General Ulcer Measurement Start: 04/14/25 08:07 Freq: Status: Active Protocol: Activity Type Activity Date Activity User E-sign Co-sign Detail Recorded Client Recorded Date Recorded By Document 04/14/25 08:07 ML [id number] 04/14/25 08:17 ML Document 04/21/25 08:03 KW [id number] 04/21/25 08:09 KW Edit Result 04/21/25 08:03 KW (1) [id number] 04/21/25 08:09 KW Document 04/28/25 08:02 KW [id number] 04/28/25 08:09 KW (1) Right Calf (cm) => 47 Right Ankle (cm) => 26 04/14/25 04/21/25 04/28/25 08:07 08:03 08:02 Wound Center Nurse 1 #1 r post le cluster -Current Size (cm) - Length 3.5 3.5 4 -Current Size (cm) - Width 4.0 4.5 6 -Current Size (cm) - Depth 0.3 0.3 0.5 -Total Square Cm 14.00 15.75 24 -Date of Last Picture (Recall this 04/14/25 04/21/25 04/28/25 field) -Photo Taken Yes -Epithelialization Small 1-33% -Tunneling No -Undermining/Tunneling No -Circular Undermining No -Exudate Amt Medium Large Medium -Exudate Type Serosanguineous Serosanguineous Serosanguineous -Wound Margin Distinct, Distinct, Distinct, Outline Outline Outline Attached Attached Attached -Granulation Amt Medium (34-66%) Large (67-100%) Large (67-100%) -Granulation Quality [place] Red -Necrosis Amt Medium (34-66%) Small (1-33%) Small (1-33%) -Necrotic Tissue Type Adherent Slough Adherent Slough -Texture (Armida-wound Skin Appearance) Assessed Assessed Assessed -Moisture (Arm[place]-wound Skin Appearance) Assessed Assessed Assessed -Color (Armida-wound Skin Appearance) Assessed Assessed, Assessed Erythema -Temperature (Armida-wound Skin No Abnormality No Abnormality No Abnormality Appearance) (Pt Warm) (Pt Warm) (Pt Warm) -Tenderness on Palpation (Armida-wound No No No Skin Appearance) -Ulcer Cleansing Soap and Water Soap and Water Rinsed/ Irrigated with Saline -Foul Odor after Cleansing No No No -Anesthetic Used 5% Lidocaine 5% Lidocaine 5% Lidocaine Gel Gel Gel Right Calf (cm) 47 44.6 Right Ankle (cm) 26 25.5 WC - Nurse 2 - General Ulcer CM Notes Start: 04/14/25 08:07 Freq: Status: Active Protocol: Activity Type Activity Date Activity User E-sign Co-sign Detail Recorded Client Recorded Date Recorded By Document 04/14/25 08:24 JF [id number] 04/14/25 08:26 JF Document 04/21/25 08:31 JF [id number] 04/21/25 08:32 JF Edit Result 04/21/25 08:31 JF (1) [id number] 04/21/25 09:04 JF Document 04/28/25 08:55 DS [id number] 04/28/25 08:57 DS (1) #1 r post le cluster - Clinical Debridement Subcutaneous => Muscle / Fascia - Tissue Removed Subcutaneous => Muscle - Debridement - Subq, 1st 20sq cm Yes => - Debridement - Muscle / Fascia, 1st => Yes 20sq cm 04/14/25 04/21/25 04/28/25 08:24 08:31 08:55 Wound Center Nurse 2 #1 r post le cluster -Time 08:24 08:31 08:55 -Correct Patient Yes Yes Yes -Correct Side, Site, Position Yes Yes Yes -Correct Procedure Yes Yes Yes -Procedure Performed Yes Yes Yes -Type of Procedure Debridement Debridement Debridement -Clinical Debridement Subcutaneous Muscle / Fascia Muscle / Fascia -Tissue Removed Subcutaneous Muscle Muscle -Post Debridement (cm) - Length 3.1 4 4.1 -Post Debridement (cm) - Width 3.9 4.2 4.5 -Post Debridement (cm) - Depth 0.3 0.4 0.5 -Total Square (Post) (cm) 12.09 16.8 18.45 -Area of Debridement (cm) - Length 3.0 4 4.1 -Area of Debridement (cm) - Width 3.9 4.2 4.5 -Total Square (Area) (cm) 11.70 16.8 18.45 -Tunneling No No No -Undermining/Tunneling No No No -Circular Undermining No No No -Wound/Ulcer Outcome Not Healed Not Healed Not Healed -Ulcer Cleansing Rinsed/ Rinsed/ Rinsed/ Irrigated with Irrigated with Irrigated with Saline Saline Saline -Foul Odor after Cleansing No No No -Bioengineered Tissue No No No -Bleeding Controlled with Pressure Pressure Pressure -Treatment Response Procedure Procedure Procedure Tolerated Well Tolerated Well Tolerated Well -Offloading No No -Debridement - Subq, 1st 20sq cm Yes -Debridement - Muscle / Fascia, 1st Yes Yes 20sq cm Pain Scale: 0-10 Numeric Is Patient Pain Free? Yes Yes No right post le -Description Sharp -Intensity 4 -Duration (hours) Chronic -Pain Behavior No Change in Behavior -Pain Aggravating Factors Debridement -Alleviating Factors/Interventions Emotional Support WC - Nurse 3 - General Ulcer D/C NN Start: 04/14/25 08:07 Freq: Status: Active Protocol: Activity Type Activity Date Activity User E-sign Co-sign Detail Recorded Client Recorded Date Recorded By Document 04/14/25 08:35 ML [id number] 04/14/25 08:36 ML Document 04/21/25 08:46 GM [id number] 04/21/25 08:47 GM Document 04/28/25 09:06 ML [id number] 04/28/25 09:07 ML 04/14/25 04/21/25 04/28/25 08:35 08:46 09:06 Wound Care Center Nurse 3 #1 r post le cluster -Ulcer Cleansing Soap and Water Not Cleansed Rinsed/ Irrigated with Saline -Foul Odor after Cleansing No -Primary Dressing Applied Hysept -Other Dressing betadine soaked dakins soaked gauze gauze -Primary Dressing Covered/Secured with Dry Gauze & Dry Gauze & Dry Gauze, Roll Gauze, Roll Gauze, Secured with Secured with Secured with Tape Tape Tape -Hysept 1 RLE -Tubular Bandage Double Layer Double Layer -Size of Tubigrip Used Size E Size E -Size E ($) 2 2 Pain Scale: 0-10 Numeric Is Patient Pain Free? Yes Yes Yes WC - Visit Discharge Discharge Condition Stable Ambulatory Status Ambulatory Transportation Private Auto Clinical Summary of Care Provided Yes Assessment/Plan Assessment/Plan (1) Chronic venous hypertension (idiopathic) with ulcer of right lower extremity: CODE(S): I87.311 - Chronic venous hypertension (idiopathic) with ulcer of right lower extremity; L97.919 - Non-pressure chronic ulcer of unspecified part of right lower leg with unspecified severity PLAN: Patient was examined and evaluated. All findings were discussed with the patient. All questions were answered to the patient's satisfaction. Excisional debridement down to including subcutaneous tissue, fascia and muscle with a number 5 mm dermal curette to the right posterior leg done without incident. Predebridement measurement was 3.9 x 4.3 x 0.3 cm. Postdebridement measurement was 4.1 x 4.5 x 0.5 cm. The area was wiped clean and patted dry. Dakins soaked gauze followed by dry sterile dressing compression wrap was donned to the right lower extremity. Patient continue daily dressing changes. Educated the patient to make sure that he rests and elevates the bilateral lower extremity whenever he gets the opportunity, at work as well as at home. Follow-up at the wound care center with Dr. Conte in 1 week. 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
--- NOTE | 2025-04-28 13:57 | WC ---
PHOTO-RIGHT POST LE 04/28/25
[2025-05-05 08:05] VITALS: BP 156/64; PULSE 61; RESP 18; TEMP 36.1
--- NOTE | 2025-05-05 09:00 | PN.PCM_ITS ---
History of Present Illness Date of Service: 05/05/25 Chief Complaint: Full-thickness wound right posterior leg History of Wound: Patient sustained a dog bite approximately 1 to 2 weeks ago was seen at an outside hospital and sent to the wound care center for further evaluation. Progress of Wound: Stable full-thickness wound posterior right leg no sign of infection. Subjective Subjective Patient is a 70-year-old male presenting to wound care center today follow-up evaluation of full-thickness wound to the posterior right leg. Patient has been doing dressing changes with Dakin's soaked gauze dry sterile dressing compression wrap. He admits the wound is stable and slow to improve. He is interested to move forward with surgical intervention in the OR with graft application. His insurance will be changing within the next few weeks. He denies any new onset of trauma. Denies constitutional symptoms. No other pedal complaints at this time. Objective Data Objective Data Vital Signs: Vital Signs Temp Pulse Resp BP O2 Del Method 96.9 F L 61 18 156/64 H Room Air 05/05/25 08:05 05/05/25 08:05 05/05/25 08:05 05/05/25 08:05 05/05/25 08:05 Oxygen Delivery Method Room Air Lab / Micro Data Micro: Microbiology 03/31/25 08:40 Ulcer, Decubitus - Leg, Right Gram Stain - Final 03/31/25 08:40 Ulcer, Decubitus - Leg, Right Wound Culture - Final Providencia rettgeri Staphylococcus epidermidis Yeast, not Juliet albicans 03/31/25 08:40 Ulcer, Decubitus - Leg, Right Anaerobic Culture - Preliminary Checking for anaerobes, further studies to follow. Physical Exam Narrative Vascular: DP and PT pulses are palpable to right lower extremity. CFT is brisk. Skin temperature gradient is warm to warm from proximal ankle to distal digits. Periwound erythema which is blanchable and has improved since previous visit. +1 pitting edema to the right lower extremity. Neurological: Light touch is intact. Protective station is diminished. Patient does respond to painful stimuli. Dermatological: Full-thickness wound to the posterior right leg measuring 4.1 x 4.7 x 0.4 cm. Wound base is fibrogranular nature. No tunneling. No malodor. No drainage. Excisional debridement down to including subcutaneous tissue, fascia and muscle with a number 5 mm dermal curette to the right posterior leg done without incident. Predebridement measurement was 4.0 x 4.5 x 0.3 cm. Postdebridement measurement was 4.1 x 4.7 x 0.4 cm. Musculoskeletal: No pain to palpation to full-thickness wound. No pain with calf pressure. Debridement Note Debridement Note Debridement Free Text: Excisional debridement down to including subcutaneous tissue, fascia and muscle with a number 5 mm dermal curette to the right posterior leg done without incident. Predebridement measurement was 4.0 x 4.5 x 0.3 cm. Postdebridement measurement was 4.1 x 4.7 x 0.4 cm. Post-Debridement Measurements and Additional Note: Post-Debridement Measurements/Treatment - Nurse 1 - General Ulcer Assessment Start: 04/14/25 08:07 Freq: Status: Active Protocol: .LOWEXT Activity Type Activity Date Activity User E-sign Co-sign Detail Recorded Client Recorded Date Recorded By Document 04/14/25 08:07 ML [id number] 04/14/25 08:17 ML Document 04/21/25 08:03 KW [id number] 04/21/25 08:09 KW Document 04/28/25 08:02 KW [id number] 04/28/25 08:09 KW Edit Result 04/28/25 08:02 KW (1) [id number] 04/28/25 08:10 KW Document 05/05/25 08:05 KW [id number] 05/05/25 08:10 KW (1) Pulse Rate (60-100) => 47 L Blood Pressure (90/60-120/80) => 108/54 L Blood Pressure Mean (mm Hg) => 72 04/14/25 04/21/25 04/28/25 08:07 08:03 08:02 - Today's Visit Information Type of service Follow-up Visit Follow-up Visit Follow-up Visit (Physician/BODY AND FENDER MECHANIC APPRENTICE (Physician/BODY AND FENDER MECHANIC APPRENTICE (Physician/BODY AND FENDER MECHANIC APPRENTICE ) ) ) Arrival Mode Ambulatory Ambulatory Ambulatory Transfer Assistance None Accompanied by brother Patient Identification Verified (Name & Yes Yes Yes ) Patient Requires Transmission-Based No Precautions Vital Signs Temperature (97.8 F-99.1 F) 96.5 F L 97.2 F L 96.9 F L Temperature Source Temporal Temporal Temporal Pulse Rate (60-100) 97 55 L 47 L Pulse Location Monitor Monitor Monitor Respiratory Rate (12-18) 14 18 18 Respiratory rate source Observation Observation Observation Oxygen Delivery Method Room Air Room Air Blood Pressure (90/60-120/80) 125/61 H 117/67 108/54 L Blood Pressure Mean (mm Hg) 82 83 72 Source Monitor Monitor Monitor Position Sitting Semi-Fowlers Sitting Blood Pressure Location Left Arm Right Arm Right Forearm History Since Last Visit- (Skip if this is Patient's initial visit) Have you changed medications since your No No No last visit? Any new allergies or adverse reactions No No No Had a fall/change in ADL's that may No No No increase risk of falls Signs or symptoms of abuse and/or No No No neglect since last visit Have you been in the hospital since your No No No last visit? Has dressing in place as prescribed Yes Yes Yes Has compression in place as prescribed Yes Yes Yes Has offloadiing in place as prescribed No N/A N/A Experienced any changes in pain level or No No No management Left Footwear Regular Shoe Regular Shoe Right Footwear Regular Shoe Regular Shoe Pain Scale: 0-10 Numeric Is Patient Pain Free? Yes Yes Yes right post le -Description -Intensity -Alleviating Factors/Interventions 05/05/25 08:05 WC - Today's Visit Information Type of service Follow-up Visit (Physician/BODY AND FENDER MECHANIC APPRENTICE ) Arrival Mode Ambulatory Transfer Assistance Accompanied by Patient Identification Verified (Name & Yes ) Patient Requires Transmission-Based Precautions Vital Signs Temperature (97.8 F-99.1 F) 96.9 F L Temperature Source Temporal Pulse Rate (60-100) 61 Pulse Location Monitor Respiratory Rate (12-18) 18 Respiratory rate source Observation Oxygen Delivery Method Room Air Blood Pressure (90/60-120/80) 156/64 H Blood Pressure Mean (mm Hg) 94 Source Monitor Position Semi-Fowlers Blood Pressure Location Right Arm History Since Last Visit- (Skip if this is Patient's initial visit) Have you changed medications since your No last visit? Any new allergies or adverse reactions No Had a fall/change in ADL's that may No increase risk of falls Signs or symptoms of abuse and/or No neglect since last visit Have you been in the hospital since your No last visit? Has dressing in place as prescribed Yes Has compression in place as prescribed N/A Has offloadiing in place as prescribed N/A Experienced any changes in pain level or No management Left Footwear Regular Shoe Right Footwear Regular Shoe Pain Scale: 0-10 Numeric Is Patient Pain Free? No right post le -Description Burning,Aching -Intensity 3 -Alleviating Factors/Interventions Medication WC - Nurse 1 - General Ulcer Measurement Start: 04/14/25 08:07 Freq: Status: Active Protocol: Activity Type Activity Date Activity User E-sign Co-sign Detail Recorded Client Recorded Date Recorded By Document 04/14/25 08:07 ML [id number] 04/14/25 08:17 ML Document 04/21/25 08:03 KW [id number] 04/21/25 08:09 KW Edit Result 04/21/25 08:03 KW (1) [id number] 04/21/25 08:09 KW Document 04/28/25 08:02 KW [id number] 04/28/25 08:09 KW Document 05/05/25 08:05 KW [id number] 05/05/25 08:10 KW (1) Right Calf (cm) => 47 Right Ankle (cm) => 26 04/14/25 04/21/25 04/28/25 08:07 08:03 08:02 Wound Center Nurse 1 #1 r post le cluster -Current Size (cm) - Length 3.5 3.5 4 -Current Size (cm) - Width 4.0 4.5 6 -Current Size (cm) - Depth 0.3 0.3 0.5 -Total Square Cm 14.00 15.75 24 -Date of Last Picture (Recall this 04/14/25 04/21/25 04/28/25 field) -Photo Taken Yes -Epithelialization Small 1-33% -Tunneling No -Undermining/Tunneling No -Circular Undermining No -Exudate Amt Medium Large Medium -Exudate Type Serosanguineous Serosanguineous Serosanguineous -Wound Margin Distinct, Distinct, Distinct, Outline Outline Outline Attached Attached Attached -Granulation Amt Medium (34-66%) Large (67-100%) Large (67-100%) -Granulation Quality Rafael Capo Red Red -Necrosis Amt Medium (34-66%) Small (1-33%) Small (1-33%) -Necrotic Tissue Type Adherent Slough Adherent Slough -Texture (Armida-wound Skin Appearance) Assessed Assessed Assessed -Moisture (Armida-wound Skin Appearance) Assessed Assessed Assessed -Color (Armida-wound Skin Appearance) Assessed Assessed, Assessed Erythema -Temperature (Armida-wound Skin No Abnormality No Abnormality No Abnormality Appearance) (Pt Warm) (Pt Warm) (Pt Warm) -Tenderness on Palpation (Armida-wound No No No Skin Appearance) -Ulcer Cleansing Soap and Water Soap and Water Rinsed/ Irrigated with Saline -Foul Odor after Cleansing No No No -Anesthetic Used 5% Lidocaine 5% Lidocaine 5% Lidocaine Gel Gel Gel Right Calf (cm) 47 44.6 Right Ankle (cm) 26 25.5 05/05/25 08:05 Wound Center Nurse 1 #1 r post le cluster -Current Size (cm) - Length 4 -Current Size (cm) - Width 5.8 -Current Size (cm) - Depth 0.2 -Total Square Cm 23.2 -Date of Last Picture (Recall this 05/05/25 field) -Photo Taken -Epithelialization -Tunneling -Undermining/Tunneling -Circular Undermining -Exudate Amt Medium -Exudate Type Serosanguineous -Wound Margin Thickened -Granulation Amt Large (67-100%) -Granulation Quality Rafael Capo,Red -Necrosis Amt Small (1-33%) -Necrotic Tissue Type Adherent Slough -Texture (Armida-wound Skin Appearance) Assessed -Moisture (Armida-wound Skin Appearance) Assessed -Color (Armida-wound Skin Appearance) Assessed, Erythema -Temperature (Armida-wound Skin No Abnormality Appearance) (Pt Warm) -Tenderness on Palpation (Armida-wound No Skin Appearance) -Ulcer Cleansing Rinsed/ Irrigated with Saline -Foul Odor after Cleansing No -Anesthetic Used 5% Lidocaine Gel Right Calf (cm) 42.5 Right Ankle (cm) 25 WC - Nurse 2 - General Ulcer CM Notes Start: 04/14/25 08:07 Freq: Status: Active Protocol: Activity Type Activity Date Activity User E-sign Co-sign Detail Recorded Client Recorded Date Recorded By Document 04/14/25 08:24 JF [id number] 04/14/25 08:26 JF Document 04/21/25 08:31 JF [id number] 04/21/25 08:32 JF Edit Result 04/21/25 08:31 JF (1) [id number] 04/21/25 09:04 JF Document 04/28/25 08:55 DS [id number] 04/28/25 08:57 DS Document 05/05/25 08:39 JF [id number] 05/05/25 08:42 JF (1) #1 r post le cluster - Clinical Debridement Subcutaneous => Muscle / Fascia - Tissue Removed Subcutaneous => Muscle - Debridement - Subq, 1st 20sq cm Yes => - Debridement - Muscle / Fascia, 1st => Yes 20sq cm 04/14/25 04/21/25 04/28/25 08:24 08:31 08:55 Wound Center Nurse 2 #1 r post le cluster -Time 08:24 08:31 08:55 -Correct Patient Yes Yes Yes -Correct Side, Site, Position Yes Yes Yes -Correct Procedure Yes Yes Yes -Procedure Performed Yes Yes Yes -Type of Procedure Debridement Debridement Debridement -Clinical Debridement Subcutaneous Muscle / Fascia Muscle / Fascia -Tissue Removed Subcutaneous Muscle Muscle -Post Debridement (cm) - Length 3.1 4 4.1 -Post Debridement (cm) - Width 3.9 4.2 4.5 -Post Debridement (cm) - Depth 0.3 0.4 0.5 -Total Square (Post) (cm) 12.09 16.8 18.45 -Area of Debridement (cm) - Length 3.0 4 4.1 -Area of Debridement (cm) - Width 3.9 4.2 4.5 -Total Square (Area) (cm) 11.70 16.8 18.45 -Tunneling No No No -Undermining/Tunneling No No No -Circular Undermining No No No -Wound/Ulcer Outcome Not Healed Not Healed Not Healed -Ulcer Cleansing Rinsed/ Rinsed/ Rinsed/ Irrigated with Irrigated with Irrigated with Saline Saline Saline -Foul Odor after Cleansing No No No -Bioengineered Tissue No No No -Bleeding Controlled with Pressure Pressure Pressure -Treatment Response Procedure Procedure Procedure Tolerated Well Tolerated Well Tolerated Well -Offloading No No -Debridement - Subq, 1st 20sq cm Yes -Debridement - Muscle / Fascia, 1st Yes Yes 20sq cm Pain Scale: 0-10 Numeric Is Patient Pain Free? Yes Yes No right post le -Description Sharp -Intensity 4 -Duration (hours) Chronic -Pain Behavior No Change in Behavior -Pain Aggravating Factors Debridement -Alleviating Factors/Interventions Emotional Support 05/05/25 08:39 Wound Center Nurse 2 #1 r post le cluster -Time 08:39 -Correct Patient Yes -Correct Side, Site, Position Yes -Correct Procedure Yes -Procedure Performed Yes -Type of Procedure Debridement -Clinical Debridement Muscle / Fascia -Tissue Removed Muscle -Post Debridement (cm) - Length 4.1 -Post Debridement (cm) - Width 4.7 -Post Debridement (cm) - Depth 0.4 -Total Square (Post) (cm) 19.27 -Area of Debridement (cm) - Length 4.1 -Area of Debridement (cm) - Width 4.7 -Total Square (Area) (cm) 19.27 -Tunneling No -Undermining/Tunneling No -Circular Undermining No -Wound/Ulcer Outcome Not Healed -Ulcer Cleansing Rinsed/ Irrigated with Saline -Foul Odor after Cleansing No -Bioengineered Tissue No -Bleeding Controlled with Pressure -Treatment Response Procedure Tolerated Well -Offloading No -Debridement - Subq, 1st 20sq cm -Debridement - Muscle / Fascia, 1st Yes 20sq cm Pain Scale: 0-10 Numeric Is Patient Pain Free? Yes right post le -Description -Intensity -Duration (hours) -Pain Behavior -Pain Aggravating Factors -Alleviating Factors/Interventions WC - Nurse 3 - General Ulcer D/C NN Start: 04/14/25 08:07 Freq: Status: Active Protocol: Activity Type Activity Date Activity User E-sign Co-sign Detail Recorded Client Recorded Date Recorded By Document 04/14/25 08:35 ML [id number] 04/14/25 08:36 ML Document 04/21/25 08:46 GM [id number] 04/21/25 08:47 GM Document 04/28/25 09:06 ML [id number] 04/28/25 09:07 ML Document 05/05/25 08:53 MT [id number] 05/05/25 08:57 MT 04/14/25 04/21/25 04/28/25 08:35 08:46 09:06 Wound Care Center Nurse 3 #1 r post le cluster -Ulcer Cleansing Soap and Water Not Cleansed Rinsed/ Irrigated with Saline -Foul Odor after Cleansing No -Negative Pressure Wound Therapy -Primary Dressing Applied Hysept -Other Dressing betadine soaked dakins soaked gauze gauze -Primary Dressing Covered/Secured with Dry Gauze & Dry Gauze & Dry Gauze, Roll Gauze, Roll Gauze, Secured with Secured with Secured with Tape Tape Tape -Hysept 1 RLE -Tubular Bandage Double Layer Double Layer -Size of Tubigrip Used Size E Size E -Size E ($) 2 2 Pain Scale: 0-10 Numeric Is Patient Pain Free? Yes Yes Yes WC - Visit Discharge Discharge Condition Stable Ambulatory Status Ambulatory Transportation Private Auto Medication Reconcilliation completed & provided to patient/care provider Clinical Summary of Care Provided Yes 05/05/25 08:53 Wound Care Center Nurse 3 #1 r post le cluster -Ulcer Cleansing -Foul Odor after Cleansing No -Negative Pressure Wound Therapy N/A -Primary Dressing Applied -Other Dressing dakins, abd, -Primary Dressing Covered/Secured with Dry Gauze & Roll Gauze, Secured with Tape -Hysept RLE -Tubular Bandage Double Layer -Size of Tubigrip Used Size E -Size E ($) 2 Pain Scale: 0-10 Numeric Is Patient Pain Free? Yes WC - Visit Discharge Discharge Condition Stable Ambulatory Status Ambulatory Transportation Private Auto Medication Reconcilliation completed & No provided to patient/care provider Clinical Summary of Care Provided Yes Assessment/Plan Assessment/Plan (1) Chronic venous hypertension (idiopathic) with ulcer of right lower extremity: CODE(S): I87.311 - Chronic venous hypertension (idiopathic) with ulcer of right lower extremity; L97.919 - Non-pressure chronic ulcer of unspecified part of right lower leg with unspecified severity PLAN: Patient was examined and evaluated. All findings were discussed with the patient. All questions were answered to the patient's satisfaction. Excisional debridement down to including subcutaneous tissue, fascia and muscle with a number 5 mm dermal curette to the right posterior leg done without incident. Predebridement measurement was 4.0 x 4.5 x 0.3 cm. Postdebridement measurement was 4.1 x 4.7 x 0.4 cm. The area was wiped clean and patted dry. Dakins soaked gauze followed by dry sterile dressing compression wrap was donned to the right lower extremity. Patient continue daily dressing changes. Educated the patient to make sure that he rests and elevates the bilateral lower extremity whenever he gets the opportunity, at work as well as at home. Will begin to move forward with authorization through the patient's insurance for surgical skin graft site prep with application of skin graft substitute with [facility] in approximately 3 weeks. Follow-up at the wound care center with Dr. Conte in 1 week. 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
--- NOTE | 2025-05-05 13:19 | WC ---
PHOTO-RIGHT POST LE 05/05/25
== END 2025-05-09 23:59 | disposition home or self-care (01) ==
LOC: WC 08:15
PROVIDERS: PCP Nurse Practitioner Family; Referring Provider Nurse Practitioner Family; Visit Provider Podiatrist Foot & Ankle Surgery
DX: E11.622 Type 2 diabetes mellitus with other skin ulcer (principal); L97.813 Non-pressure chronic ulcer of other part of right lower leg with necrosis of muscle; I87.311 Chronic venous hypertension (idiopathic) with ulcer of right lower extremity; E11.42 Type 2 diabetes mellitus with diabetic polyneuropathy
CPT/HCPCS: 11042; 11043

== ENCOUNTER 2025-06-02 08:15 | Outpatient (RCR) | payer OTHER, SELFPAY ==
[2025-05-12 08:05] VITALS: BP 140/61; PULSE 47; RESP 18; TEMP 36.1
--- NOTE | 2025-05-12 08:36 | PN.PCM_ITS ---
History of Present Illness Date of Service: 05/12/25 Chief Complaint: Full-thickness wound right posterior leg History of Wound: Patient sustained a dog bite approximately 1 to 2 weeks ago was seen at an outside hospital and sent to the wound care center for further evaluation. Progress of Wound: Stable slow healing wound secondary to trauma posterior right leg Subjective Subjective Patient is a 70-year-old diabetic male presenting to wound care center today for follow-up evaluation of full-thickness wound to the posterior right leg secondary to dog bite. Patient has been doing dressing changes as discussed. He admits that his wound is improving but still has some pain with dressing changes. His last A1c was 6.0%. His blood sugars 128 mg/dL today. He denies any new onset of trauma. Denies constitutional symptoms. No other pedal complaints at this time. Objective Data Objective Data Vital Signs: Vital Signs Temp Pulse Resp BP O2 Del Method 96.9 F L 47 L 18 140/61 H Room Air 05/12/25 08:05 05/12/25 08:05 05/12/25 08:05 05/12/25 08:05 05/12/25 08:05 Oxygen Delivery Method Room Air Lab / Micro Data Micro: Microbiology 03/31/25 08:40 Ulcer, Decubitus - Leg, Right Gram Stain - Final 03/31/25 08:40 Ulcer, Decubitus - Leg, Right Wound Culture - Final Providencia rettgeri Staphylococcus epidermidis Yeast, not Juliet albicans 03/31/25 08:40 Ulcer, Decubitus - Leg, Right Anaerobic Culture - Preliminary Checking for anaerobes, further studies to follow. Physical Exam Narrative Vascular: DP and PT pulses are palpable to right lower extremity. CFT is brisk. Skin temperature gradient is warm to warm from proximal ankle to distal digits. No erythema. Nonpitting edema. Neurological: Light touch is intact. Protective station is diminished. Patient does respond to painful stimuli. Dermatological: Full-thickness wound to the posterior right leg measuring 4.3 x 5.2 x 0.3 cm. Wound base is fibrogranular nature. No tunneling. No malodor. No drainage. Excisional debridement down to including subcutaneous tissue, fascia and muscle with a number 5 mm dermal curette to the right posterior leg done without incident. Predebridement measurement was 4.1 x 5.0 x 0.2 cm. Postdebridement measurement was 4.3 x 5.2 x 0.3 cm. Musculoskeletal: No pain to palpation to full-thickness wound. No pain with calf pressure. 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 Predebridement measurement was 4.1 x 5.0 x 0.2 cm. Postdebridement measurement was 4.3 x 5.2 x 0.3 cm. 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 ) Arrival Mode Ambulatory Transfer Assistance None Patient Identification Verified (Name & Yes ) Finger Stick Blood Sugar(mg/dl) (if 128 indicated): Blood Sugar Stated by Patient Vital Signs Temperature (97.8 F-99.1 F) 96.9 F L Temperature Source Temporal Pulse Rate (60-100) 47 L Pulse Location Monitor Respiratory Rate (12-18) 18 Respiratory rate source Observation Oxygen Delivery Method Room Air Blood Pressure (90/60-120/80) 140/61 H Blood Pressure Mean (mm Hg) 87 Source Monitor Position Sitting Blood Pressure Location Left Arm History Since Last Visit- (Skip if this is Patient's initial visit) Have you changed medications since your No last visit? Any new allergies or adverse reactions No Had a fall/change in ADL's that may No increase risk of falls Signs or symptoms of abuse and/or No neglect since last visit Have you been in the hospital since your No last visit? Has dressing in place as prescribed Yes Has compression in place as prescribed No Has offloadiing in place as prescribed N/A Experienced any changes in pain level or No management Left Footwear Regular Shoe Right Footwear Regular Shoe Pain Scale: 0-10 Numeric Is Patient Pain Free? No CHRISTOPHE - Nurse 1 - General Ulcer Measurement Start: 05/12/25 08:05 Freq: Status: Active Protocol: Activity Type Activity Date Activity User E-sign Co-sign Detail Recorded Client Recorded Date Recorded By Document 05/12/25 08:05 [id number] 05/12/25 08:18 05/12/25 08:05 Wound Center Nurse 1 #1 r post le cluster -Current Size (cm) - Length 4.0 -Current Size (cm) - Width 5.0 -Current Size (cm) - Depth 0.2 -Total Square Cm 20.00 -Photo Taken No -Epithelialization Small 1-33% -Tunneling No -Undermining/Tunneling No -Circular Undermining No -Exudate Amt Large -Exudate Type Yellow/Green -Wound Margin Distinct, Outline Attached -Granulation Amt Medium (34-66%) -Granulation Quality Louise -Slough/Fibrin Yes -Necrosis Amt Small (1-33%) -Necrotic Tissue Type Adherent Slough -Texture (Armida-wound Skin Appearance) Assessed -Moisture (Armida-wound Skin Appearance) Assessed -Color (Armida-wound Skin Appearance) Assessed -Temperature (Armida-wound Skin No Abnormality Appearance) (Pt Warm) -Tenderness on Palpation (Armida-wound No Skin Appearance) -Ulcer Cleansing Soap and Water -Foul Odor after Cleansing No -Anesthetic Used 5% Lidocaine Gel WC - Nurse 2 - General Ulcer CM Notes Start: 05/12/25 08:05 Freq: Status: Active Protocol: Activity Type Activity Date Activity User E-sign Co-sign Detail Recorded Client Recorded Date Recorded By Document 05/12/25 08:31 [id number] 05/12/25 08:33 05/12/25 08:31 Wound Center Nurse 2 -Time 08:31 -Correct Patient Yes -Correct Side, Site, Position Yes -Correct Procedure Yes -Procedure Performed Yes -Type of Procedure Debridement -Clinical Debridement Muscle / Fascia -Tissue Removed Muscle -Post Debridement (cm) - Length 4.3 -Post Debridement (cm) - Width 5.2 -Post Debridement (cm) - Depth 0.3 -Total Square (Post) (cm) 22.36 -Area of Debridement (cm) - Length 4.3 -Area of Debridement (cm) - Width 5.2 -Total Square (Area) (cm) 22.36 -Tunneling No -Undermining/Tunneling No -Circular Undermining No -Wound/Ulcer Outcome Not Healed -Ulcer Cleansing Rinsed/ Irrigated with Saline -Foul Odor after Cleansing No -Bioengineered Tissue No -Bleeding Controlled with Pressure -Treatment Response Procedure Tolerated Well -Offloading No -Debridement - Muscle / Fascia, 1st Yes 20sq cm -Debridement, Muscle/Fascia, ea addt'l 1 20sq cm or part thereof Pain Scale: 0-10 Numeric Is Patient Pain Free? Yes Assessment/Plan Assessment/Plan (1) Chronic venous hypertension (idiopathic) with ulcer of right lower extremity: CODE(S): I87.311 - Chronic venous hypertension (idiopathic) with ulcer of right lower extremity; L97.919 - Non-pressure chronic ulcer of unspecified part of right lower leg with unspecified severity PLAN: Patient was examined and evaluated. All findings were discussed with the alfonso contreras. All questions were answered to the patient's satisfaction. Excisional debridement down to including subcutaneous tissue, fascia and muscle with a number 5 mm dermal curette to the right posterior leg done without incident. Predebridement measurement was 4.1 x 5.0 x 0.2 cm. Postdebridement measurement was 4.3 x 5.2 x 0.3 cm.. The area was wiped clean and patted dry. Dakins soaked gauze followed by dry sterile dressing compression wrap was donned to the right lower extremity. Patient continue daily dressing changes. Discussed with the patient regarding surgical intervention will consist of surgical skin graft site prep with ultrasound debrider with application of skin graft substitute to the posterior right leg. All risk benefits were discussed the patient great detail. We should plan for surgical intervention within the next 2 to 3 weeks. Patient will continue daily dressing changes as discussed. He will continue to maintain strict blood sugar control. Patient will continue use the compression as discussed. Patient will continue to rest and elevate is much as he can especially when he is on break at work or at home. Follow-up at the wound care center with Dr. Conte in 1 week. 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
[2025-05-19 08:06] VITALS: BP 140/83; PULSE 58; RESP 18; TEMP 36.2
--- NOTE | 2025-05-19 08:29 | PN.PCM_ITS ---
History of Present Illness Date of Service: 05/19/25 Chief Complaint: Full-thickness wound right posterior leg History of Wound: Patient sustained a dog bite approximately 1 to 2 weeks ago was seen at an outside hospital and sent to the wound care center for further evaluation. Progress of Wound: Stable slow healing wound secondary to trauma posterior right leg Subjective Subjective Patient is a 70-year-old diabetic male presenting to wound care center today follow-up evaluation of full-thickness wound to the posterior right leg. Patient has been compliant with Dakin's dressing changes daily with help from his brother. He admits that his blood sugars well-controlled. He does admit to some discoloration/drainage to the ABD pad that is sweetened smelling green in nature. He is not on antibiotics at this time. He denies trauma. Denies constitutional symptoms. No other pedal complaints at this time. Objective Data Objective Data Vital Signs: Vital Signs Temp Pulse Resp BP O2 Del Method 97.2 F L 58 L 18 140/83 H Room Air 05/19/25 08:06 05/19/25 08:06 05/19/25 08:06 05/19/25 08:06 05/19/25 08:06 Oxygen Delivery Method Room Air Lab / Micro Data Micro: Microbiology 03/31/25 08:40 Ulcer, Decubitus - Leg, Right Gram Stain - Final 03/31/25 08:40 Ulcer, Decubitus - Leg, Right Wound Culture - Final Providencia rettgeri Staphylococcus epidermidis Yeast, not Juliet albicans 03/31/25 08:40 Ulcer, Decubitus - Leg, Right Anaerobic Culture - Preliminary Checking for anaerobes, further studies to follow. Physical Exam Narrative Vascular: DP and PT pulses are palpable to right lower extremity. CFT is brisk. Skin temperature gradient is warm to warm from proximal ankle to distal digits. No erythema. Nonpitting edema. Neurological: Light touch is intact. Protective station is diminished. Patient does respond to painful stimuli. Dermatological: Full-thickness wound to the posterior right leg measuring 4.3 x 5.0 x 0.3 centimeters. Wound base is fibrogranular nature. No tunneling. No malodor. No drainage appreciated but there is evidence of green-tinged drainage on the dressing. Excisional debridement down to including subcutaneous tissue, fascia and muscle with a number 5 mm dermal curette to the right posterior leg done without incident. Predebridement measurement was 4.2 x 4.8 x 0.2 cm. Postdebridement measurement was 4.3 x 5.0 x 0.3 cm. Musculoskeletal: No pain to palpation to full-thickness wound. No pain with calf pressure. Debridement Note Debridement Note Debridement Free Text: Excisional debridement down to including subcutaneous tissue, fascia and muscle with a number 5 mm dermal curette to the right posterior leg done without incident. Predebridement measurement was 4.2 x 4.8 x 0.2 cm. Postdebridement measurement was 4.3 x 5.0 x 0.3 cm. 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 ) ) Arrival Mode Ambulatory Ambulatory Transfer Assistance None Patient Identification Verified (Name & Yes Yes ) Finger Stick Blood Sugar(mg/dl) (if 128 indicated): Blood Sugar Stated by Patient Vital Signs Temperature (97.8 F-99.1 F) 96.9 F L 97.2 F L Temperature Source Temporal Temporal Pulse Rate (60-100) 47 L 58 L Pulse Location Monitor Respiratory Rate (12-18) 18 18 Respiratory rate source Observation Observation Oxygen Delivery Method Room Air Room Air Blood Pressure (90/60-120/80) 140/61 H 140/83 H Blood Pressure Mean (mm Hg) 87 102 Source Monitor Position Sitting Blood Pressure Location Left Arm History Since Last Visit- (Skip if this is Patient's initial visit) Have you changed medications since your No No last visit? Any new allergies or adverse reactions No No Had a fall/change in ADL's that may No No increase risk of falls Signs or symptoms of abuse and/or No No neglect since last visit Have you been in the hospital since your No No last visit? Has dressing in place as prescribed Yes Yes Has compression in place as prescribed No Yes Has offloadiing in place as prescribed N/A N/A Experienced any changes in pain level or No No management Left Footwear Regular Shoe Regular Shoe Right Footwear Regular Shoe Regular Shoe Pain Scale: 0-10 Numeric Is Patient Pain Free? No Yes WC - Nurse 1 - General Ulcer Measurement Start: 05/12/25 08:05 Freq: Status: Active Protocol: Activity Type Activity Date Activity User E-sign Co-sign Detail Recorded Client Recorded Date Recorded By Document 05/12/25 08:05 GM [id number] 05/12/25 08:18 GM Document 05/19/25 08:06 KW [id number] 05/19/25 08:10 KW 05/12/25 05/19/25 08:05 08:06 Wound Center Nurse 1 #1 r post le cluster -Current Size (cm) - Length 4.0 4 -Current Size (cm) - Width 5.0 4.8 -Current Size (cm) - Depth 0.2 0.2 -Total Square Cm 20.00 19.2 -Date of Last Picture (Recall this 05/19/25 field) -Photo Taken No -Epithelialization Small 1-33% -Tunneling No -Undermining/Tunneling No -Circular Undermining No -Exudate Amt Large Large -Exudate Type Yellow/Green Yellow/Green -Wound Margin Distinct, Distinct, Outline Outline Attached Attached -Granulation Amt Medium (34-66%) Medium (34-66%) -Granulation Quality Novelty Novelty,Red -Slough/Fibrin Yes -Necrosis Amt Small (1-33%) Medium (34-66%) -Necrotic Tissue Type Adherent Slough Adherent Slough -Texture (Armida-wound Skin Appearance) Assessed Assessed -Moisture (Armida-wound Skin Appearance) Assessed Assessed -Color (Armida-wound Skin Appearance) Assessed Assessed, Erythema -Temperature (Armida-wound Skin No Abnormality No Abnormality Appearance) (Pt Warm) (Pt Warm) -Tenderness on Palpation (Armida-wound No No Skin Appearance) -Ulcer Cleansing Soap and Water Wound Cleanser -Foul Odor after Cleansing No No -Anesthetic Used 5% Lidocaine 5% Lidocaine Gel Gel Right Calf (cm) 44 Right Ankle (cm) 25.5 WC - Nurse 2 - General Ulcer CM Notes Start: 05/12/25 08:05 Freq: Status: Active Protocol: Activity Type Activity Date Activity User E-sign Co-sign Detail Recorded Client Recorded Date Recorded By Document 05/12/25 08:31 JF [id number] 05/12/25 08:33 JF Document 05/19/25 08:17 JF [id number] 05/19/25 08:21 JF 05/12/25 05/19/25 08:31 08:17 Wound Center Nurse 2 #1 r post le cluster -Time 08:31 08:18 -Correct Patient Yes Yes -Correct Side, Site, Position Yes Yes -Correct Procedure Yes Yes -Procedure Performed Yes Yes -Type of Procedure Debridement Debridement -Clinical Debridement Muscle / Fascia Muscle / Fascia -Tissue Removed Muscle Muscle -Post Debridement (cm) - Length 4.3 4.3 -Post Debridement (cm) - Width 5.2 5 -Post Debridement (cm) - Depth 0.3 0.3 -Total Square (Post) (cm) 22.36 21.5 -Area of Debridement (cm) - Length 4.3 4.3 -Area of Debridement (cm) - Width 5.2 5 -Total Square (Area) (cm) 22.36 21.5 -Tunneling No No -Undermining/Tunneling No No -Circular Undermining No No -Wound/Ulcer Outcome Not Healed Not Healed -Ulcer Cleansing Rinsed/ Rinsed/ Irrigated with Irrigated with Saline Saline -Foul Odor after Cleansing No No -Bioengineered Tissue No No -Bleeding Controlled with Pressure Pressure -Treatment Response Procedure Procedure Tolerated Well Tolerated Well -Offloading No No -Debridement - Muscle / Fascia, 1st Yes Yes 20sq cm -Debridement, Muscle/Fascia, ea addt'l 1 1 20sq cm or part thereof Pain Scale: 0-10 Numeric Is Patient Pain Free? Yes Yes WC - Nurse 3 - General Ulcer D/C NN Start: 05/12/25 08:05 Freq: Status: Active Protocol: Activity Type Activity Date Activity User E-sign Co-sign Detail Recorded Client Recorded Date Recorded By Document 05/12/25 08:40 KW [id number] 05/12/25 08:40 05/12/25 08:40 Wound Care Center Nurse 3 #1 r post le cluster -Other Dressing DAKINS GAUZE -Primary Dressing Covered/Secured with Dry Gauze & Roll Gauze, Secured with Tape RLE -Tubular Bandage Double Layer -Size of Tubigrip Used Size E -Size E ($) 2 Pain Scale: 0-10 Numeric Is Patient Pain Free? Yes WC - Visit Discharge Discharge Condition Stable Ambulatory Status Ambulatory Transportation Private Auto Medication Reconcilliation completed & No provided to patient/care provider Clinical Summary of Care Provided Yes Assessment/Plan Assessment/Plan (1) Chronic venous hypertension (idiopathic) with ulcer of right lower extremity: CODE(S): I87.311 - Chronic venous hypertension (idiopathic) with ulcer of right lower extremity; L97.919 - Non-pressure chronic ulcer of unspecified part of right lower leg with unspecified severity PLAN: Patient was examined and evaluated. All findings were discussed with the patient. All questions were answered to the patient's satisfaction. Excisional debridement down to including subcutaneous tissue, fascia and muscle with a number 5 mm dermal curette to the right posterior leg done without incident. Predebridement measurement was 4.2 x 4.8 x 0.2 cm. Postdebridement measurement was 4.3 x 5.0 x 0.3 cm. The right lower extremities were cleaned and patted dry. Dakin's moist gauze was applied to the full-thickness wound followed by dry sterile dressing and compression wrap. Culture was taken. Antibiotics will be adjusted as needed. Patient will be placed on ciprofloxacin 750 mg twice daily for 2 weeks. I did discuss with the patient that he needs to get in contact with his primary doctor regarding the interaction with his antiarrhythmic medication and to see if he can be off of it while on antibiotic treatment or we will adjust based on culture and sensitivity as needed. Follow-up at the wound care center with Dr. Conte in 1 week. 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
[2025-05-26 08:21] VITALS: BP 118/50; PULSE 52; RESP 16; TEMP 36.3
--- NOTE | 2025-05-26 09:06 | PN.PCM_ITS ---
History of Present Illness Date of Service: 05/26/25 Chief Complaint: Full-thickness wound right posterior leg History of Wound: Patient sustained a dog bite approximately 1 to 2 weeks ago was seen at an outside hospital and sent to the wound care center for further evaluation. Progress of Wound: Stable slow healing wound secondary to trauma posterior right leg Subjective Subjective Patient is a 7-year-old diabetic male presenting to wound care center today follow-up evaluation of full-thickness wound to the posterior right leg. Patient has been doing dressing changes as discussed. He is taking the ciprofloxacin antibiotic twice daily as ordered. He did reach out to his primary doctor as well as told by the pharmacist that there is some strong interaction with his anti with medication which he has stopped while taking the antibiotic. He notices great improvement to the leg. The pain is improved. The redness is completely gone. His blood sugars well-controlled. Denies t rauma. Denies constitutional symptoms. No other pedal complaints at this time. Objective Data Objective Data Vital Signs: Vital Signs Temp Pulse Resp BP O2 Del Method 97.3 F L 52 L 16 118/50 L Room Air 05/26/25 08:21 05/26/25 08:21 05/26/25 08:21 05/26/25 08:21 05/26/25 08:21 Oxygen Delivery Method Room Air Lab / Micro Data Micro: Microbiology 05/19/25 Unknown Wound - Leg, Right Gram Stain - Final 05/19/25 Unknown Wound - Leg, Right Wound Culture - Final Pseudomonas aeruginosa 05/19/25 Unknown Wound - Leg, Right Anaerobic Culture - Final No anaerobic bacteria isolated. Physical Exam Narrative Vascular: DP and PT pulses are palpable to right lower extremity. CFT is brisk. Skin temperature gradient is warm to warm from proximal ankle to distal digits. No erythema. Nonpitting edema. Neurological: Light touch is intact. Protective station is diminished. Patient does respond to painful stimuli. Dermatological: Full-thickness wound to the posterior right leg measuring 4.5 x 4.5 x 0.3 cm. Wound base is fibrogranular nature. No tunneling. No malodor. No drainage appreciated but there is evidence of green-tinged drainage on the dressing. Excisional debridement down to including subcutaneous tissue, fascia and muscle with a number 5 mm dermal curette to the right posterior leg done without incident. Predebridement measurement was 4.2 x 4.2 x 0.2 cm. Postdebridement measurement was 4.5 x 4.5 x 0.3 cm. Musculoskeletal: No pain to palpation to full-thickness wound. No pain with calf pressure. Debridement Note Debridement Note Debridement Free Text: Excisional debridement down to including subcutaneous tissue, fascia and muscle with a number 5 mm dermal curette to the right posterior leg done without incident. Predebridement measurement was 4.2 x 4.8 x 0.2 cm. Postdebridement measurement was 4.3 x 5.0 x 0.3 cm. Post-Debridement Measurements and Additional Note: Post-Debridement Measurements/Treatment - Nurse 1 - General Ulcer Assessment Start: 05/12/25 08:05 Freq: Status: Active Protocol: JOSÉ LUIS Activity Type Activity Date Activity User E-sign Co-sign Detail Recorded Client Recorded Date Recorded By Document 05/12/25 08:05 GM [id number] 05/12/25 08:18 GM Document 05/19/25 08:06 KW [id number] 05/19/25 08:10 KW Document 05/26/25 08:21 CP [id number] 05/26/25 08:25 CP 05/12/25 05/19/25 05/26/25 08:05 08:06 08:21 - Today's Visit Information Type of service Follow-up Visit Follow-up Visit Follow-up Visit (Physician/BUILDER[employer]S [employer]OURER (Physician/[employer]ER (Physician/[employer]ER ) ) ) Arrival Mode Ambulatory Ambulatory Ambulatory Transfer Assistance None Patient Identification Verified (Name & Yes Yes Yes ) Patient Requires Transmission-Based No Precautions Finger Stick Blood Sugar(mg/dl) (if 128 indicated): Blood Sugar Stated by Patient Vital Signs Temperature (97.8 F-99.1 F) 96.9 F L 97.2 F L 97.3 F L Temperature Source Temporal Temporal Temporal Pulse Rate (60-100) 47 L 58 L 52 L Pulse Location Monitor Monitor Respiratory Rate (12-18) 18 18 16 Respiratory rate source Observation Observation Observation Oxygen Delivery Method Room Air Room Air Room Air Blood Pressure (90/60-120/80) 140/61 H 140/83 H 118/50 L Blood Pressure Mean (mm Hg) 87 102 72 Source Monitor Monitor Position Sitting Semi-Fowlers Blood Pressure Location Left Arm Right Arm History Since Last Visit- (Skip if this is Patient's initial visit) Have you changed medications since your No No No last visit? Any new allergies or adverse reactions No No No Had a fall/change in ADL's that may No No No increase risk of falls Signs or symptoms of abuse and/or No No No neglect since last visit Have you been in the hospital since your No No No last visit? Has dressing in place as prescribed Yes Yes Yes Has compression in place as prescribed No Yes Yes Has offloadiing in place as prescribed N/A N/A N/A Experienced any changes in pain level or No No No management Left Footwear Regular Shoe Regular Shoe Regular Shoe Right Footwear Regular Shoe Regular Shoe Regular Shoe Pain Scale: 0-10 Numeric Is Patient Pain Free? No Yes Yes WC - Nurse 1 - General Ulcer Measurement Start: 05/12/25 08:05 Freq: Status: Active Protocol: Activity Type Activity Date Activity User E-sign Co-sign Detail Recorded Client Recorded Date Recorded By Document 05/12/25 08:05 [id number] 05/12/25 08:18 Document 05/19/25 08:06 KW [id number] 05/19/25 08:10 KW Document 05/26/25 08:21 CP [id number] 05/26/25 08:25 CP 05/12/25 05/19/25 05/26/25 08:05 08:06 08:21 Wound Center Nurse 1 #1 r post le cluster -Current Size (cm) - Length 4.0 4 4.2 -Current Size (cm) - Width 5.0 4.8 4 -Current Size (cm) - Depth 0.2 0.2 0.1 -Total Square Cm 20.00 19.2 16.8 -Date of Last Picture (Recall this 05/19/25 05/26/25 field) -Photo Taken No Yes -Epithelialization Small 1-33% -Tunneling No -Undermining/Tunneling No -Circular Undermining No -Exudate Amt Large Large Small -Exudate Type Yellow/Green Yellow/Green Yellow/Green -Wound Margin Distinct, Distinct, Flat & Intact Outline Outline Attached Attached -Granulation Amt Medium (34-66%) Medium (34-66%) Medium (34-66%) -Granulation Quality [place],Red Red -Slough/Fibrin Yes Yes -Necrosis Amt Small (1-33%) Medium (34-66%) Medium (34-66%) -Necrotic Tissue Type Adherent Slough Adherent Slough Adherent Slough -Structure Exposed N/A -Texture (Armida-wound Skin Appearance) Assessed Assessed No Abnormality -Moisture (Armida-wound Skin Appearance) Assessed Assessed No Abnormality -Color (Armida-wound Skin Appearance) Assessed Assessed, No Abnormality Erythema -Temperature (Armida-wound Skin No Abnormality No Abnormality No Abnormality Appearance) (Pt Warm) (Pt Warm) (Pt Warm) -Tenderness on Palpation (Armida-wound No No No Skin Appearance) -Ulcer Cleansing Soap and Water Wound Cleanser Soap and Water -Foul Odor after Cleansing No No No -Anesthetic Used 5% Lidocaine 5% Lidocaine 5% Lidocaine Gel Gel Gel Right Calf (cm) 44 Right Ankle (cm) 25.5 WC - Nurse 2 - General Ulcer CM Notes Start: 05/12/25 08:05 Freq: Status: Active Protocol: Activity Type Activity Date Activity User E-sign Co-sign Detail Recorded Client Recorded Date Recorded By Document 05/12/25 08:31 [id number] 05/12/25 08:33 Document 05/19/25 08:17 [id number] 05/19/25 08:21 Document 05/26/25 08:33 [id number] 05/26/25 08:37 05/12/25 05/19/25 05/26/25 08:31 08:17 08:33 Wound Center Nurse 2 #1 r post le cluster -Time 08:31 08:18 08:33 -Correct Patient Yes Yes Yes -Correct Side, Site, Position Yes Yes Yes -Correct Procedure Yes Yes Yes -Procedure Performed Yes Yes Yes -Type of Procedure Debridement Debridement Debridement -Clinical Debridement Muscle / Fascia Muscle / Fascia Muscle / Fascia -Tissue Removed Muscle Muscle Muscle -Post Debridement (cm) - Length 4.3 4.3 4.5 -Post Debridement (cm) - Width 5.2 5 4.5 -Post Debridement (cm) - Depth 0.3 0.3 0.3 -Total Square (Post) (cm) 22.36 21.5 20.25 -Area of Debridement (cm) - Length 4.3 4.3 4.5 -Area of Debridement (cm) - Width 5.2 5 4.5 -Total Square (Area) (cm) 22.36 21.5 20.25 -Tunneling No No No -Undermining/Tunneling No No No -Circular Undermining No No No -Wound/Ulcer Outcome Not Healed Not Healed Not Healed -Ulcer Cleansing Rinsed/ Rinsed/ Rinsed/ Irrigated with Irrigated with Irrigated with Saline Saline Saline -Foul Odor after Cleansing No No No -Bioengineered Tissue No No No -Bleeding Controlled with Pressure Pressure Pressure -Treatment Response Procedure Procedure Procedure Tolerated Well Tolerated Well Tolerated Well -Offloading No No No -Debridement - Muscle / Fascia, 1st Yes Yes Yes 20sq cm -Debridement, Muscle/Fascia, ea addt'l 1 1 1 20sq cm or part thereof Pain Scale: 0-10 Numeric Is Patient Pain Free? Yes Yes Yes - Nurse 3 - General Ulcer D/C NN Start: 05/12/25 08:05 Freq: Status: Active Protocol: Activity Type Activity Date Activity User E-sign Co-sign Detail Recorded Client Recorded Date Recorded By Document 05/12/25 08:40 [id number] 05/12/25 08:40 KW Document 05/19/25 08:31 [id number] 05/19/25 08:32 Document 05/26/25 08:49 CP [id number] 05/26/25 08:54 CP 05/12/25 05/19/25 05/26/25 08:40 08:31 08:49 Wound Care Center Nurse 3 #1 r post le cluster -Ulcer Cleansing Not Cleansed Rinsed/ Irrigated with Saline -Foul Odor after Cleansing No No -Other Dressing DAKINS GAUZE dakins gauze -Primary Dressing Covered/Secured with Dry Gauze & Dry Gauze,Dry Dry Gauze & Roll Gauze, Gauze & Roll Roll Gauze, Secured with Gauze,Secured Secured with Tape with Tape Tape -Other Covering dakins RLE -Lotion applied to leg before No compression wrap -Tubular Bandage Double Layer Double Layer Double Layer -Size of Tubigrip Used Size E Size E Size E -Size E ($) 2 2 2 Pain Scale: 0-10 Numeric Is Patient Pain Free? Yes Yes Yes - Visit Discharge Discharge Condition Stable Unstable Stable Ambulatory Status Ambulatory Ambulatory Ambulatory Transportation Private Auto Private Auto Private Auto Medication Reconcilliation completed & No provided to patient/care provider Clinical Summary of Care Provided Yes Yes Assessment/Plan Assessment/Plan (1) Chronic venous hypertension (idiopathic) with ulcer of right lower extremity: CODE(S): I87.311 - Chronic venous hypertension (idiopathic) with ulcer of right lower extremity; L97.919 - Non-pressure chronic ulcer of unspecified part of right lower leg with unspecified severity PLAN: Patient was examined and evaluated. All findings were discussed with the patient. All questions were answered to the patient's satisfaction. Excisional debridement down to including subcutaneous tissue, fascia and muscle with a number 5 mm dermal curette to the right posterior leg done without incident. Predebridement measurement was 4.2 x 4.8 x 0.2 cm. Postdebridement measurement was 4.3 x 5.0 x 0.3 cm. The right lower extremities were cleaned and patted dry. Dakin's moist gauze was applied to the full-thickness wound followed by dry sterile dressing and compression wrap. Culture was taken. Antibiotics will be adjusted as needed. Patient will be placed on ciprofloxacin 750 mg twice daily for 2 weeks. I did discuss with the patient that he needs to get in contact with his primary doctor regarding the interaction with his antiarrhythmic medication and to see if he can be off of it while on antibiotic treatment or we will adjust based on cultu re and sensitivity as needed. Follow-up at the wound care center with Dr. Conte in 1 week. 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
--- NOTE | 2025-05-27 08:06 | WC ---
PHOTO - RIGHT POST LE 05/26/25
[2025-06-02 08:13] VITALS: BP 115/65; PULSE 57; RESP 18; TEMP 36.1
--- NOTE | 2025-06-02 08:23 | PCM.WC.PN ---
History of Present Illness Date of Service: 06/02/25 Chief Complaint: Full-thickness wound right posterior leg History of Wound: Patient sustained a dog bite approximately 1 to 2 weeks ago was seen at an outside hospital and sent to the wound care center for further evaluation. Progress of Wound: Stable slow healing wound secondary to trauma posterior right leg Subjective Subjective Patient is a 70-year-old diabetic male presenting to wound care center today follow-up evaluation of full-thickness wound to the posterior left leg. Patient has been compliant with dressing changes. He is on his last day of oral antibiotics. No acute events overnight or during the time of taking the antibiotics. He denies any pain to the right leg. He denies trauma. Denies constitutional symptoms. No other pedal complaints at this time. Objective Data Objective Data Vital Signs: Vital Signs Temp Pulse Resp BP O2 Del Method 97.0 F L 57 L 18 115/65 Room Air 06/02/25 08:13 06/02/25 08:13 06/02/25 08:13 06/02/25 08:13 06/02/25 08:13 Oxygen Delivery Method Room Air Lab / Micro Data Micro: Microbiology 05/19/25 Unknown Wound - Leg, Right Gram Stain - Final 05/19/25 Unknown Wound - Leg, Right Wound Culture - Final Pseudomonas aeruginosa 05/19/25 Unknown Wound - Leg, Right Anaerobic Culture - Final No anaerobic bacteria isolated. Physical Exam Narrative Vascular: DP and PT pulses are palpable to right lower extremity. CFT is brisk. Skin temperature gradient is warm to warm from proximal ankle to distal digits. No erythema. Nonpitting edema. Neurological: Light touch is intact. Protective station is diminished. Patient does respond to painful stimuli. Dermatological: Full-thickness wound to the posterior right leg measuring 4.2 x 4.3 x 0.3 cm wound base is fibrogranular nature. No tunneling. No malodor. No drainage appreciated but there is evidence of green-tinged drainage on the dressing. Excisional debridement down to including subcutaneous tissue, fascia and muscle with a number 5 mm dermal curette to the right posterior leg done without incident. Predebridement measurement was 4.0 x 4.1 x 0.2 cm. Postdebridement measurement was 4.2 x 4.3 x 0.3 cm. Musculoskeletal: No pain to palpation to full-thickness wound. No pain with calf pressure. Debridement Note Debridement Note Debridement Free Text: Excisional debridement down to including subcutaneous tissue, fascia and muscle with a number 5 mm dermal curette to the right posterior leg done without incident. Predebridement measurement was 4.0 x 4.1 x 0.2 cm. Postdebridement measurement was 4.2 x 4.3 x 0.3 cm. Post-Debridement Measurements and Additional Note: Post-Debridement Measurements/Treatment - Nurse 1 - General Ulcer Assessment Start: 05/12/25 08:05 Freq: Status: Active Protocol: JOSÉ LUIS Activity Type Activity Date Activity User E-sign Co-sign Detail Recorded Client Recorded Date Recorded By Document 05/12/25 08:05 GM [id number] 05/12/25 08:18 GM Document 05/19/25 08:06 KW [id number] 05/19/25 08:10 KW Document 05/26/25 08:21 CP [id number] 05/26/25 08:25 CP Document 06/02/25 08:13 GM [id number] 06/02/25 08:15 GM 05/12/25 05/19/25 05/26/25 08:05 08:06 08:21 - Today's Visit Information Type of service Follow-up Visit Follow-up Visit Follow-up Visit (Physician/COMPUTER TEACHER (Physician/COMPUTER TEACHER (Physician/COMPUTER TEACHER ) ) ) Arrival Mode Ambulatory Ambulatory Ambulatory Transfer Assistance None Patient Identification Verified (Name & Yes Yes Yes ) Patient Requires Transmission-Based No Precautions Finger Stick Blood Sugar(mg/dl) (if 128 indicated): Blood Sugar Stated by Patient Vital Signs Temperature (97.8 F-99.1 F) 96.9 F L 97.2 F L 97.3 F L Temperature Source Temporal Temporal Temporal Pulse Rate (60-100) 47 L 58 L 52 L Pulse Location Monitor Monitor Respiratory Rate (12-18) 18 18 16 Respiratory rate source Observation Observation Observation Oxygen Delivery Method Room Air Room Air Room Air Blood Pressure (90/60-120/80) 140/61 H 140/83 H 118/50 L Blood Pressure Mean (mm Hg) 87 102 72 Source Monitor Monitor Position Sitting Semi-Fowlers Blood Pressure Location Left Arm Right Arm History Since Last Visit- (Skip if this is Patient's initial visit) Have you changed medications since your No No No last visit? Any new allergies or adverse reactions No No No Had a fall/change in ADL's that may No No No increase risk of falls Signs or symptoms of abuse and/or No No No neglect since last visit Have you been in the hospital since your No No No last visit? Has dressing in place as prescribed Yes Yes Yes Has compression in place as prescribed No Yes Yes Has offloadiing in place as prescribed N/A N/A N/A Experienced any changes in pain level or No No No management Left Footwear Regular Shoe Regular Shoe Regular Shoe Right Footwear Regular Shoe Regular Shoe Regular Shoe Pain Scale: 0-10 Numeric Is Patient Pain Free? No Yes Yes 06/02/25 08:13 - Today's Visit Information Type of service Follow-up Visit (Physician/COMPUTER TEACHER ) Arrival Mode Ambulatory Transfer Assistance Patient Identification Verified (Name & Yes ) Patient Requires Transmission-Based Precautions Finger Stick Blood Sugar(mg/dl) (if indicated): Blood Sugar Vital Signs Temperature (97.8 F-99.1 F) 97.0 F L Temperature Source Temporal Pulse Rate (60-100) 57 L Pulse Location Monitor Respiratory Rate (12-18) 18 Respiratory rate source Observation Oxygen Delivery Method Room Air Blood Pressure (90/60-120/80) 115/65 Blood Pressure Mean (mm Hg) 81 Source Monitor Position Sitting Blood Pressure Location Left Arm History Since Last Visit- (Skip if this is Patient's initial visit) Have you changed medications since your No last visit? Any new allergies or adverse reactions No Had a fall/change in ADL's that may No increase risk of falls Signs or symptoms of abuse and/or No neglect since last visit Have you been in the hospital since your No last visit? Has dressing in place as prescribed Yes Has compression in place as prescribed No Has offloadiing in place as prescribed N/A Experienced any changes in pain level or No management Left Footwear Right Footwear Pain Scale: 0-10 Numeric Is Patient Pain Free? Yes - Nurse 1 - General Ulcer Measurement Start: 05/12/25 08:05 Freq: Status: Active Protocol: Activity Type Activity Date Activity User E-sign Co-sign Detail Recorded Client Recorded Date Recorded By Document 05/12/25 08:05 [id number] 05/12/25 08:18 Document 05/19/25 08:06 KW [id number] 05/19/25 08:10 KW Document 05/26/25 08:21 CP [id number] 05/26/25 08:25 CP Document 06/02/25 08:13 GM [id number] 06/02/25 08:15 GM 05/12/25 05/19/25 05/26/25 08:05 08:06 08:21 Wound Center Nurse 1 #1 r post le cluster -Current Size (cm) - Length 4.0 4 4.2 -Current Size (cm) - Width 5.0 4.8 4 -Current Size (cm) - Depth 0.2 0.2 0.1 -Total Square Cm 20.00 19.2 16.8 -Date of Last Picture (Recall this 05/19/25 05/26/25 field) -Photo Taken No Yes -Epithelialization Small 1-33% -Tunneling No -Undermining/Tunneling No -Circular Undermining No -Exudate Amt Large Large Small -Exudate Type Yellow/Green Yellow/Green Yellow/Green -Wound Margin Distinct, Distinct, Flat & Intact Outline Outline Attached Attached -Granulation Amt Medium (34-66%) Medium (34-66%) Medium (34-66%) -Granulation Quality [place],Red Red -Slough/Fibrin Yes Yes -Necrosis Amt Small (1-33%) Medium (34-66%) Medium (34-66%) -Necrotic Tissue Type Adherent Slough Adherent Slough Adherent Slough -Structure Exposed N/A -Texture (Armida-wound Skin Appearance) Assessed Assessed No Abnormality -Moisture (Armida-wound Skin Appearance) Assessed Assessed No Abnormality -Color (Armida-wound Skin Appearance) Assessed Assessed, No Abnormality Erythema -Temperature (Armida-wound Skin No Abnormality No Abnormality No Abnormality Appearance) (Pt Warm) (Pt Warm) (Pt Warm) -Tenderness on Palpation (Armida-wound No No No Skin Appearance) -Ulcer Cleansing Soap and Water Wound Cleanser Soap and Water -Foul Odor after Cleansing No No No -Anesthetic Used 5% Lidocaine 5% Lidocaine 5% Lidocaine Gel Gel Gel Right Calf (cm) 44 Right Ankle (cm) 25.5 06/02/25 08:13 Wound Center Nurse 1 #1 r post le cluster -Current Size (cm) - Length 4 -Current Size (cm) - Width 4.5 -Current Size (cm) - Depth 0.1 -Total Square Cm 18.0 -Date of Last Picture (Recall this 06/02/25 field) -Photo Taken Yes -Epithelialization Small 1-33% -Tunneling No -Undermining/Tunneling No -Circular Undermining No -Exudate Amt Large -Exudate Type Yellow/Green -Wound Margin Distinct, Outline Attached -Granulation Amt Medium (34-66%) -Granulation Quality Red -Slough/Fibrin Yes -Necrosis Amt Small (1-33%) -Necrotic Tissue Type Adherent Slough -Structure Exposed -Texture (Armida-wound Skin Appearance) Assessed -Moisture (Armida-wound Skin Appearance) Assessed -Color (Armida-wound Skin Appearance) Assessed -Temperature (Armida-wound Skin No Abnormality Appearance) (Pt Warm) -Tenderness on Palpation (Armida-wound No Skin Appearance) -Ulcer Cleansing Soap and Water -Foul Odor after Cleansing No -Anesthetic Used 5% Lidocaine Gel Right Calf (cm) Right Ankle (cm) WC - Nurse 2 - General Ulcer CM Notes Start: 05/12/25 08:05 Freq: Status: Active Protocol: Activity Type Activity Date Activity User E-sign Co-sign Detail Recorded Client Recorded Date Recorded By Document 05/12/25 08:31 [id number] 05/12/25 08:33 Document 05/19/25 08:17 [id number] 05/19/25 08:21 Document 05/26/25 08:33 [id number] 05/26/25 08:37 Document 06/02/25 08:19 [id number] 06/02/25 08:21 05/12/25 05/19/25 05/26/25 08:31 08:17 08:33 Wound Center Nurse 2 #1 r post le cluster -Time 08:31 08:18 08:33 -Correct Patient Yes Yes Yes -Correct Side, Site, Position Yes Yes Yes -Correct Procedure Yes Yes Yes -Procedure Performed Yes Yes Yes -Type of Procedure Debridement Debridement Debridement -Clinical Debridement Muscle / Fascia Muscle / Fascia Muscle / Fascia -Tissue Removed Muscle Muscle Muscle -Post Debridement (cm) - Length 4.3 4.3 4.5 -Post Debridement (cm) - Width 5.2 5 4.5 -Post Debridement (cm) - Depth 0.3 0.3 0.3 -Total Square (Post) (cm) 22.36 21.5 20.25 -Area of Debridement (cm) - Length 4.3 4.3 4.5 -Area of Debridement (cm) - Width 5.2 5 4.5 -Total Square (Area) (cm) 22.36 21.5 20.25 -Tunneling No No No -Undermining/Tunneling No No No -Circular Undermining No No No -Wound/Ulcer Outcome Not Healed Not Healed Not Healed -Ulcer Cleansing Rinsed/ Rinsed/ Rinsed/ Irrigated with Irrigated with Irrigated with Saline Saline Saline -Foul Odor after Cleansing No No No -Bioengineered Tissue No No No -Bleeding Controlled with Pressure Pressure Pressure -Treatment Response Procedure Procedure Procedure Tolerated Well Tolerated Well Tolerated Well -Offloading No No No -Debridement - Muscle / Fascia, 1st Yes Yes Yes 20sq cm -Debridement, Muscle/Fascia, ea addt'l 1 1 1 20sq cm or part thereof Pain Scale: 0-10 Numeric Is Patient Pain Free? Yes Yes Yes 06/02/25 08:19 Wound Center Nurse 2 #1 r post le cluster -Time 08:20 -Correct Patient Yes -Correct Side, Site, Position Yes -Correct Procedure Yes -Procedure Performed Yes -Type of Procedure Debridement -Clinical Debridement Muscle / Fascia -Tissue Removed Muscle -Post Debridement (cm) - Length 4.2 -Post Debridement (cm) - Width 4.3 -Post Debridement (cm) - Depth 0.3 -Total Square (Post) (cm) 18.06 -Area of Debridement (cm) - Length 4.2 -Area of Debridement (cm) - Width 4.3 -Total Square (Area) (cm) 18.06 -Tunneling No -Undermining/Tunneling No -Circular Undermining No -Wound/Ulcer Outcome Not Healed -Ulcer Cleansing Rinsed/ Irrigated with Saline -Foul Odor after Cleansing No -Bioengineered Tissue No -Bleeding Controlled with Pressure -Treatment Response Procedure Tolerated Well -Offloading No -Debridement - Muscle / Fascia, 1st Yes 20sq cm -Debridement, Muscle/Fascia, ea addt'l 20sq cm or part thereof Pain Scale: 0-10 Numeric Is Patient Pain Free? Yes WC - Nurse 3 - General Ulcer D/C NN Start: 05/12/25 08:05 Freq: Status: Active Protocol: Activity Type Activity Date Activity User E-sign Co-sign Detail Recorded Client Recorded Date Recorded By Document 05/12/25 08:40 KW [id number] 05/12/25 08:40 KW Document 05/19/25 08:31 GM [id number] 05/19/25 08:32 GM Document 05/26/25 08:49 CP [id number] 05/26/25 08:54 CP 05/12/25 05/19/25 05/26/25 08:40 08:31 08:49 Wound Care Center Nurse 3 #1 r post le cluster -Ulcer Cleansing Not Cleansed Rinsed/ Irrigated with Saline -Foul Odor after Cleansing No No -Other Dressing DAKINS GAUZE dakins gauze -Primary Dressing Covered/Secured with Dry Gauze & Dry Gauze,Dry Dry Gauze & Roll Gauze, Gauze & Roll Roll Gauze, Secured with Gauze,Secured Secured with Tape with Tape Tape -Other Covering dakins RLE -Lotion applied to leg before No compression wrap -Tubular Bandage Double Layer Double Layer Double Layer -Size of Tubigrip Used Size E Size E Size E -Size E ($) 2 2 2 Pain Scale: 0-10 Numeric Is Patient Pain Free? Yes Yes Yes WC - Visit Discharge Discharge Condition Stable Unstable Stable Ambulatory Status Ambulatory Ambulatory Ambulatory Transportation Private Auto Private Auto Private Auto Medication Reconcilliation completed & No provided to patient/care provider Clinical Summary of Care Provided Yes Yes Assessment/Plan Assessment/Plan (1) Chronic venous hypertension (idiopathic) with ulcer of right lower extremity: CODE(S): I87.311 - Chronic venous hypertension (idiopathic) with ulcer of right lower extremity; L97.919 - Non-pressure chronic ulcer of unspecified part of right lower leg with unspecified severity PLAN: Patient was examined and evaluated. All findings were discussed with the patient. All questions were answered to the patient's satisfaction. Excisional debridement down to including subcutaneous tissue, fascia and muscle with a number 5 mm dermal curette to the right posterior leg done without incident. Predebridement measurement was 4.0 x 4.1 x 0.2 cm. Postdebridement measurement was 4.2 x 4.3 x 0.3 cm.The right lower extremities were cleaned and patted dry. Dakin's moist gauze was applied to the full-thickness wound followed by dry sterile dressing and compression wrap. Change daily. Will plan for surgical intervention with surgical skin graft site prep and application of graft substitute to the right lower extremity. All risk and benefit discussed with patient great detail. Follow-up at the wound care center with Dr. Conte in 1 week. 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
--- NOTE | 2025-06-03 14:14 | WC ---
PHOTO-RIGHT POST LEG 06/02/25
== END 2025-06-08 23:59 | disposition home or self-care (01) ==
LOC: WC 08:15
PROVIDERS: PCP Nurse Practitioner Family; Referring Provider Nurse Practitioner Family; Visit Provider Podiatrist Foot & Ankle Surgery
DX: I87.311 Chronic venous hypertension (idiopathic) with ulcer of right lower extremity (principal); L97.813 Non-pressure chronic ulcer of other part of right lower leg with necrosis of muscle; E11.42 Type 2 diabetes mellitus with diabetic polyneuropathy
CPT/HCPCS: 11043; 11046; 87070; 87075; 87077; 87186; 87205

== ENCOUNTER 2025-06-18 09:45 | Day surgery (SDC) | payer OTHER, SELFPAY ==
--- NOTE | 2025-06-07 13:25 | PAT.ANE_ITS ---
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 When Was Last Pacemaker Check QUESTION #4 FULL TEXT: You/Your Family Experience fever (hyperthermia) with Anesthesia Last Oral Intake Last Oral intake: Last Oral Intake NPO since Meds taken in AM with sips of water? Meds patient instructed to take am of surgery PONV PONV - chaser apprentice: PONV - chaser apprentice Female No 06/04/25 15:20 HX of Motion Sickness No 06/04/25 15:20 HX of N/V After Surgery No 06/04/25 15:20 Non-Smoker Yes 06/04/25 15:20 Duration of Surgery greater No 06/04/25 15:20 than 60 minutes Number of Risk Factors 1 06/04/25 15:20 PONV Score Low Risk 06/04/25 15:20 Height & Weight Height & Weight: Anesthesia: Height & Weight Height 5 ft 6 in 03/31/25 08:11 Respiratory Assessment Respiratory Assessment - chaser apprentice: Respiratory Tract Infection Hx - chaser apprentice Hx Respiratory Tract Infection No 06/04/25 15:20 STOP Sleep Apnea STOP Sleep Apnea - chaser apprentice: STOP Sleep Apnea - chaser apprentice Hx Hypertension Yes 06/04/25 15:20 Hx Sleep Apnea Yes 06/04/25 15:20 CPAP Yes 06/04/25 15:20 BIPAP No 06/04/25 15:20 Do you snore loudly (louder than talking or can be heard Do you often feel tired/ fatigued/ sleepy during daytime? Has anyone observed you stop breathing during sleep? STOP Results Positive 06/04/25 15:20 QUESTION #5 FULL TEXT : Do you snore loudly (louder than talking or can be heard through closed doors)? 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 Specify any problems Hx of Preganancy in last 3 N/A 06/04/25 15:20 Months Nurse Filling Out Transfusion [email or web address] 06/04/25 15:20 & Questions: Date: 06/04/25 06/04/25 15:20 Time: 15:22 06/04/25 15:20 Patient unable to answer at this time (ie. confused, unrespo /Reproduction History /Reproductive History - chaser apprentice: /Reproductive Hx- chaser apprentice Hx Now No 06/04/25 15:20 Gestational Age (in weeks): EDC: Hx Hx Para Hx Section SAB No 06/04/25 15:20 PFSH Medical History Wears glasses Bite by animal Arthritis Diabetes Easy bruising Excessive bleeding Injury of head and neck Dietary restriction Non-smoker CPAP (continuous positive airway pressure) dependence Sleep apnea History of atrial fibrillation Hypertension Cardiology follow-up encounter Home Medications ?Medication ?Instructions ?Recorded ?Last Taken ?Type acetaminophen 650 mg 650 mg PO Q12H 03/16/21 Unkn own History tablet,extended release (Tylenol Arthritis Pain) carbidopa 10 mg-levodopa 100 mg 3 tab PO QHS 03/16/21 Unknown History tablet multivitamin (Multiple Vitamins 1 tab PO DAILY 1 Unknown History tablet) tramadol 50 mg tablet 150 mg PO QHS #120 tabs 04/29 Unknown History meclizine 25 mg tablet 25 mg PO .qd 09/24/22 Unknow n History apixaban 5 mg tablet (Eliquis) 5 mg PO BID 02/11/23 Un known History dofetilide 125 mcg capsule 125 mcg PO BID 02/11/23 Unk nown History ezetimibe 10 mg tablet 10 mg PO DAILY 02/11/23 Unkn own History furosemide 40 mg tablet 40 mg PO BID 02/11/23 Unknow n History magnesium oxide 400 mg (241.3 mg 400 mg PO DAILY 02/11 Unknown History magnesium) tablet metoprolol succinate 25 mg 25 mg PO DAILY 02/11/23 Unk nown History tablet,extended release 24 hr potassium chloride 20 mEq 20 meq PO DAILY 02/11/23 Unk nown History tablet,extended release(part/cryst) (Klor-Con M) sacubitril 24 mg-valsartan 26 mg 1 tab PO BID 02/11/23 Unknown History tablet (Entresto) dulaglutide 0.75 mg/0.5 mL 0.75 mg subcut QWEEK Unknown History subcutaneous pen injector (Trulicity) minocycline 100 mg capsule 100 mg PO BID 2 weeks #29 c aps 03/31/25 Unknown Rx ciprofloxacin HCl 750 mg tablet 750 mg PO BID 2 weeks #28 tabs 05/19/25 Unknown Rx aspirin 81 mg tablet,delayed 81 mg PO DAILY 06/04/25 U nknown History release tizanidine 4 mg capsule 4 mg PO QHS PRN PRN muscle s pasm 06/04/25 Unknown History Allergy/AdvReac Type Severity Reaction Status Date / Time aspirin AdvReac Mild upset Verified 06/04/25 15:02 stomach ibuprofen AdvReac Mild upset Verified 06/04/25 15:02 stomach Humdzwy-YZV-PuN Reductase AdvReac Mild locking Verified 06/04/25 15:02 Inhibitor (Shqvglf-Jih-Jjp joints Reductase Inhibitor) simvastatin (From Zocor) AdvReac locking Verified 06/04/25 15:02 joints Surgical History Hx of colonoscopy History of heart artery stent Social History Smoking Status: Former smoker Prior Cardiac Testing/Procedures Prior Cardiac Testing/Procedures: Echocardiogram (EF 50-55%. no valvular disease) and Cardiac Angiogram (Had a stent to the LAD in 2022; residual 70% stenosis to L.circ) Addt'l Information Additional Findings: NSR on EKG. >4 Mets Recommendation Anesthesia Recommendation Anesthesia recommendation: OPTIMIZED for anesthesia
[2025-06-18] VITALS (8 sets, daily range): BP systolic 125–147; BP diastolic 60–72; PULSE 49–56; RESP 12–18; TEMP 36.2–36.6; O2SAT 98–100; BMI 41.1
[2025-06-18] MEDS: Lactated Ringers 1,000 ML 15 ML IV (10:30)
--- NOTE | 2025-06-18 11:14 | PCM.PRE.AN2 ---
ASA Classification* ASA Classification ASA Classification: 3 Assessment & Plan Anesthesia* Anesthesia Assessment Anesthesia Assessment: Discussed sedation and/or anesthesia options, risks, benefits, and alternatives with patient/parents/legal guardian/POA. Questions invited. The patient/parents/legal guardian/POA seems to understand and agrees to proceed with anesthesia plan. Reviewed the physical assessment, medical history, allergy history and patient home medications list prior to surgery/procedure/anesthetic and documented any changes. Performed airway and anesthesia risk assessments. Anesthesia Type Anesthesia Type: General (Consider GlideScope if endotracheal intubation.) History Source History Obtained from:: Patient and Chart Anesthesia Focused Assessment* Temperature: 97.2 F Pulse Rate: 49 Blood Pressure: 147/72 Respiratory Rate: 18 Pulse Ox: 99 Oxygen Delivery Method: Room Air Airway Assessment Mouth opens: >3 cm Mallampati Score: III Teeth Condition: Chipped/Broken and Missing (Missing multiple teeth. 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 When Was Last Pacemaker Check QUESTION #4 FULL TEXT: You/Your Family Experience fever (hyperthermia) with Anesthesia Last Oral Intake Last Oral intake: Last Oral Intake NPO since 00:00 06/18/25 10:24 Meds taken in AM with sips of No 06/18/25 10:24 water? Meds patient instructed to take am of surgery PONV PONV - cartographic drafter: PONV - cartographic drafter Female No 06/04/25 15:20 HX of Motion Sickness No 06/04/25 15:20 HX of N/V After Surgery No 06/04/25 15:20 Non-Smoker Yes 06/04/25 15:20 Duration of Surgery greater No 06/04/25 15:20 than 60 minutes Number of Risk Factors 1 06/04/25 15:20 PONV Score Low Risk 06/04/25 15:20 Height & Weight Height & Weight: Anesthesia: Height & Weight Height 5 ft 6 in 06/18/25 10:24 Weight: 115.7 kg 06/18/25 10:24 Body Mass Index (BMI) 41.1 06/18/25 10:24 Respiratory Assessment Respiratory Assessment - cartographic drafter: Respiratory Tract Infection Hx - cartographic drafter Hx Respiratory Tract Infection No 06/04/25 15:20 STOP Sleep Apnea STOP Sleep Apnea - cartographic drafter: STOP Sleep Apnea - cartographic drafter Hx Hypertension Yes 06/04/25 15:20 Hx Sleep Apnea Yes 06/04/25 15:20 CPAP Yes 06/04/25 15:20 BIPAP No 06/04/25 15:20 Do you snore loudly (louder than talking or can be heard Do you often feel tired/ fatigued/ sleepy during daytime? Has anyone observed you stop breathing during sleep? STOP Results Positive 06/04/25 15:20 QUESTION #5 FULL TEXT : Do you snore loudly (louder than talking or can be heard through closed doors)? 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 Specify any problems Hx of Preganancy in last 3 N/A 06/04/25 15:20 Months Nurse Filling Out Transfusion LIAT 06/04/25 15:20 & Questions: Date: 06/04/25 06/04/25 15:20 Time: 15:22 06/04/25 15:20 Patient unable to answer at this time (ie. confused, unrespo /Reproduction History /Reproductive History - cartographic drafter: /Reproductive Hx- cartographic drafter Hx Now No 06/04/25 15:20 Gestational Age (in weeks): EDC: Hx Hx Para Hx Section SAB No 06/04/25 15:20 Active Medications Active Medications: Current Medications Generic Name Dose Route Start Last Admin Trade Name Freq PRN Reason Stop Dose Admin Lactated Ringer's 1,000 mls @ 15 mls/hr 06/18/25 10:15 06/18/25 10:30 IV 15 mls/hr .Q48H RUBEN Administration PFSH Medical History Wears glasses Bite by animal Arthritis Diabetes Easy bruising Excessive bleeding Injury of head and neck Dietary restriction Non-smoker CPAP (continuous positive airway pressure) dependence Sleep apnea History of atrial fibrillation Hypertension Cardiology follow-up encounter Home Medications ?Medication ?Instructions ?Recorded ?Last Taken ?Type acetaminophen 650 mg 650 mg PO Q12H 03/16/21 Unknown History tablet,extended release (Tylenol Arthritis Pain) carbidopa 10 mg-levodopa 100 mg 3 tab PO QHS 03/16/21 Unknown History tablet multivitamin (Multiple Vitamins 1 tab PO DAILY 03/16/21 Unknown History tablet) tramadol 50 mg tablet 150 mg PO QHS #120 tabs 03/16/21 Unknown History meclizine 25 mg tablet 25 mg PO .qd 09/24/22 Unknown History apixaban 5 mg tablet (Eliquis) 5 mg PO BID 02/11/23 06/14/25 History dofetilide 125 mcg capsule 125 mcg PO BID 02/11/23 Unknown History ezetimibe 10 mg tablet 10 mg PO DAILY 02/11/23 Unknown History furosemide 40 mg tablet 40 mg PO BID 02/11/23 Unknown History magnesium oxide 400 mg (241.3 mg 400 mg PO DAILY 06/05/23 Unknown History magnesium) tablet metoprolol succinate 25 mg 25 mg PO DAILY 02/11/23 06/17/25 History tablet,extended release 24 hr potassium chloride 20 mEq 20 meq PO DAILY 02/11/23 Unknown History tablet,extended release(part/cryst) (Klor-Con M) sacubitril 24 mg-valsartan 26 mg 1 tab PO BID 02/11/23 Unknown History tablet (Entresto) dulaglutide 0.75 mg/0.5 mL 0.75 mg subcut QWEEK 02/20/23 06/06/25 History subcutaneous pen injector (Trulicity) minocycline 100 mg capsule 100 mg PO BID 2 weeks #29 caps 03/31/25 Unknown Rx ciprofloxacin HCl 750 mg tablet 750 mg PO BID 2 weeks #28 tabs 05/19/25 Unknown Rx aspirin 81 mg tablet,delayed 81 mg PO DAILY 06/04/25 06/14/25 History release tizanidine 4 mg capsule 4 mg PO QHS PRN PRN muscle spasm 06/04/25 Unknown History Allergy/AdvReac Type Severity Reaction Status Date / Time ibuprofen AdvReac Mild upset Verified 06/18/25 10:20 stomach Axsumcx-PKS-HuU Reductase AdvReac Mild locking Verified 06/18/25 10:20 Inhibitor (Evopsnz-Ksl-Cpy joints Reductase Inhibitor) simvastatin (From Zocor) AdvReac locking Verified 06/18/25 10:20 joints Surgical History Hx of colonoscopy History of heart artery stent Social History Smoking Status: Former smoker Review of Systems (Anesthesia) ROS Narrative System reviewed and no additional complaints, except as documented.
--- NOTE | 2025-06-18 12:02 | PCM.OPRPT ---
Operative Report (Standard) Operative Information Date of Procedure: 06/18/25 Pre-Operative Diagnosis: 1. Full-thickness wound, right leg 2. Diabetes type 2 peripheral neuropathy Post-Operative Diagnosis: Same as preoperative diagnosis Surgery/Procedure Performed: Procedure #1: Surgical skin graft site prepped, right lower extremity Procedure #2: Application of skin graft substitute, right lower extremity visual effects artist: Yes School Resource Officer: Mary Coronel PGY1 Tasks completed by first coat operator: Dissecting tissue Additional anesthesiologist assistant?: No Type of Anesthesia: General and Local RN Documented Start/Stop Times: Operation Date: 06/18/25 11:15 Case Time Into Pre-Op 06/18/25 10:03 Out of Pre-Op 06/18/25 13:45 Anesthesia Start 06/18/25 13:47 Into Room 06/18/25 13:47 Procedure Start 06/18/25 14:04 Procedure End 06/18/25 14:15 Anesthesia End 06/18/25 14:19 Out of Room 06/18/25 14:19 Into Recovery 06/18/25 14:30 Into Phase II Recovery 06/18/25 14:50 Out of Recovery 06/18/25 14:50 Out of Phase II 06/18/25 15:30 Procedure Start Time: 14:04 Procedure Stop Time: 14:15 Select all DRAINS/GRAFTS/IMPLANTS that apply: Graft Graft details: EpiFix 4.0 x 4.5 cm graft Special Medications: Per anesthesia Estimated Blood Loss: 5 mL Fluids Replaced: Per anesthesia Specimen collected: No Description of surgery: Indications For Operation: Mr. Jeong is a 70-year-old diabetic male who was admitted to [facility] for right lower extremity surgery. Patient is well-known to me at the wound care center with [facility]. After failing outpatient excisional debridement we discussed surgical intervention with graft placement. After getting approval from his insurance we will move forward with surgical intervention with surgical consultation taking place at the wound care center with all risk and benefits discussed with patient great detail. Chart review consent signed. Due to delayed healing of the full-thickness chronic wound to the posterior right leg it was deemed necessary at this time to take patient to the operating room performed above procedure help heal his chronic wound. The nature of the problem, anticipated procedures, postop recovery/convalences and risk/complications include but not limited to infection, wound healing complications, digital amputation, hypertrophic scarring, numbness, tingling, chronic pain, CRPS, over and under correction, recurrence of deformity, DVT and or PE and the need for further surgery have been discussed in great detail with the patient. All questions have been answered to the patient's satisfaction. There are no guarantees given as to the outcome of the procedure. Description of Procedure: Under mild sedation, the patient was brought into the operating room and placed on the operating table in supine position. Once the patient was under general anesthesia with laryngeal mask airway, the right lower extremity was blocked using approximately 30 cc 0.5% Marcaine plain. Next, a well-padded calf tourniquet was applied to the right lower extremity. Next, the right lower extremity was prepped and draped in normal aseptic manner. Next, a timeout was then undertaken verifying the correct patient, extremity, visibility of preoperative markings, availability of the equipment. Next the right lower extremity was exsanguinated using a 4 inch Esmarch, elevated to 60 degrees for 1 minute and the tourniquet was inflated. Procedure #1: Surgical skin graft site prepped, right lower extremity (CPT code: 22634) Next, attention was directed to the posterior right leg at the level of the full-thickness wound. There showed evidence of a combination of fibrogranular tissue. Surgical skin graft site prep was carried down to including subcutaneous tissue with ultrasonic debrider done without incident. After debridement was completed there was evidence of sanguinous drainage, no malodor and negative probe to bone. There is no concern for infection at this time. Postdebridement was 4.2 x 4.3 x 0.3 cm. No culture was taken because there is no concern for infection. At this time the right lower extremity tourniquet was deflated all bleeders were cauterized and ligated as necessary. The right lower extremity was wiped clean and patted dry. Procedure #2: Application of skin graft substitute, right lower extremity (CPT code: 65317) Next, attention was redirected back to the full-thickness wound after surgical skin graft site prep. Application of EpiFix 4.0 x 4.5 cm mesh skin graft substitute was applied to the right posterior full-thickness wound done without incident. The full-thickness wound was dressed with Adaptic, Steri-Strips bolster dressing and a single layer Ritter compression bandage was donned to the right lower extremity. The patient tolerated the procedure and anesthesia well and apparent satisfactory condition and was transported to the PACU for further monitoring prior to discharge home. Vital signs stable and vascular status intact to all digits bilateral. Post Operative Plan: Weightbearing: Patient can be weightbearing as tolerated to bilateral lower extremity. Antibiotics: 2 g Ancef through the IV DVT Prophylaxis: Not indicated Bansal: None Dressing: Adaptic, bolster dressing, double layer Ritter bandage to the right lower extremity. X-Rays: No x-rays needed for this procedure. Pain Medication: Percocet 5/325 Follow-up: Patient will be dressing clean dry and intact until follow-up with wound care center next Saturday. Surgical Findings: 1. Healthy granular tissue after ultrasonic debridement. 2. Successful application of skin graft substitute to the full-thickness wound to the posterior right leg. Complications Complications: No Admit VTE Documentation VTE Present on Admission: No VTE Mechan Device Prophylaxis: SCD's VTE Pharm Prophylaxis ordered?: No Reason prophylaxis not ordered: Treatment Not Indicated
[2025-06-18] MEDS: Cefazolin 1 GM/5 ML Vial 2 GM IV (13:47)
[2025-06-18] MEDS: Lidocaine 1% (5 ml sdv) 5 ML Vial IV (13:50)
[2025-06-18] MEDS: fentaNYL 100 MCG/2 ML Ampul IV (13:55)
--- NOTE | 2025-06-18 14:25 | PCM.POST.ANE ---
Anesthesia: Postop Eval I Current Vital Signs Temperature: 97.8 F Pulse Rate: 53 Blood Pressure: 136/60 Respiratory Rate: 18 Pulse Ox: 100 Oxygen Delivery Method: Room Air Assessment Airway patent: Yes Spontaneous unlabored respirations: Yes Mental status: Awake and Calm nausea: No Vomiting: No Anesthesia Complication: No Fluid Hydration Crystalloid volume administer (ml): 400 Total IV fluid infused: 400 Progress Note Anesthesia document: Postop Eval 1 completed: Yes
--- NOTE | 2025-06-18 16:40 | POSTOPAN2_ITS ---
Anesthesia Postop Eval I Sum Postop Eval Completion status Anesthesia document: Postop Eval 1 completed: Yes Anesthesia Postop Eval I Summary Anesthesia Postop Eval I Summary: Anesthesia Postop Eval I: Assessment Summary Airway patent Yes 06/18/25 14:26 EXCELLENCE [email or web address] Spontaneous unlabored Yes 06/18/25 14:26 EXCELLENCE [email or web address].MDOT respirations Mental status Awake,Calm 06/18/25 14:26 EXCELLENCE [email or web address].MDOT nausea No 06/18/25 14:26 EXCELLENCE [email or web address].MDOT Vomiting No 06/18/25 14:26 EXCELLENCE [email or web address] Anesthesia Postop Eval I: Fluid Summary Crystalloid volume administer 400 06/18/25 14:26 EXCELLENCE [email or web address].MDOT (ml) Colloids volume administered ( ml) Blood Product volume administered (ml) Total IV fluid infused 400 06/18/25 14:26 EXCELLENCE [email or web address] Anesthesia Postop Eval I: Summary Notes Anesthesia Complication No 06/18/25 14:26 EXCELLENCE [email or web address] Anesthesia Complication Comment: Post-operative progress note Anesthesia: Postop Eval II Evaluation Mental status: Awake and Calm Pain Level: 1 nausea: No Vomiting: No Complications Anesthesia Complication: No
--- NOTE | 2025-06-18 16:40 | PCM.POSTANE2 ---
Anesthesia Postop Eval I Sum Postop Eval Completion status Anesthesia document: Postop Eval 1 completed: Yes Anesthesia Postop Eval I Summary Anesthesia Postop Eval I Summary: Anesthesia Postop Eval I: Assessment Summary Airway patent Yes 06/18/25 14:26 CAN [email or web address] Spontaneous unlabored Yes 06/18/25 14:26 CAN [email or web address] respirations Mental status Awake,Calm 06/18/25 14:26 CAN [email or web address] nausea No 06/18/25 14:26 CAN [email or web address] Vomiting No 06/18/25 14:26 CAN [email or web address] Anesthesia Postop Eval I: Fluid Summary Crystalloid volume administer 400 06/18/25 14:26 CAN [email or web address] (ml) Colloids volume administered ( ml) Blood Product volume administered (ml) Total IV fluid infused 400 06/18/25 14:26 CAN [email or web address] Anesthesia Postop Eval I: Summary Notes Anesthesia Complication No 06/18/25 14:26 CAN [email or web address] Anesthesia Complication Comment: Post-operative progress note Anesthesia: Postop Eval II Evaluation Mental status: Awake and Calm Pain Level: 1 nausea: No Vomiting: No Complications Anesthesia Complication: No
== END 2025-06-18 15:30 | disposition home or self-care (01) ==
LOC: SDC 09:48 → AC 09:50
PROVIDERS: PCP Nurse Practitioner Family; Referring Provider Podiatrist Foot & Ankle Surgery; Visit Provider Podiatrist Foot & Ankle Surgery
PROC: (CPT 15002; principal; 2025-06-18 11:00)
DX: L97.319 Non-pressure chronic ulcer of right ankle with unspecified severity (principal); I50.9 Heart failure, unspecified; I11.0 Hypertensive heart disease with heart failure; I48.91 Unspecified atrial fibrillation; E11.42 Type 2 diabetes mellitus with diabetic polyneuropathy; E78.5 Hyperlipidemia, unspecified; I25.10 Atherosclerotic heart disease of native coronary artery without angina pectoris; Z95.5 Presence of coronary angioplasty implant and graft; Z79.01 Long term (current) use of anticoagulants; Z79.82 Long term (current) use of aspirin; Z79.899 Other long term (current) drug therapy; Z79.85 Long-term (current) use of injectable non-insulin antidiabetic drugs; S91.051D Open bite, right ankle, subsequent encounter; W54.0XXD Bitten by dog, subsequent encounter; Z87.891 Personal history of nicotine dependence
CPT/HCPCS: 15002; 15271; 00400; 82962; J2405

== ENCOUNTER 2025-06-30 08:00 | Outpatient (RCR) | payer OTHER, SELFPAY ==
[2025-06-09 08:08] VITALS: BP 137/69; PULSE 49; RESP 18; TEMP 36.4
--- NOTE | 2025-06-09 10:14 | PN.PCM_ITS ---
History of Present Illness Date of Service: 06/09/25 Chief Complaint: Full-thickness wound right posterior leg History of Wound: Patient sustained a dog bite approximately 1 to 2 weeks ago was seen at an outside hospital and sent to the wound care center for further evaluation. Progress of Wound: Stable full-thickness wound to the posterior right leg. Subjective Subjective Patient is a 70-year-old diabetic male presented wound care center today follow- up evaluation of full-thickness wound to the posterior right leg. Patient has been compliant with dressing changes. His blood sugars well-controlled. He admits redness and pain has improved over the last few weeks. We are planning on surgical debridement with graft application on 06/18/2025. Patient understands all risk and benefits going to surgery. He denies any new onset of trauma. Denies constitutional symptoms. No other pedal complaints at this time. Objective Data Objective Data Vital Signs: Vital Signs Temp Pulse Resp BP O2 Del Method 97.6 F L 49 L 18 137/69 H Room Air 06/09/25 08:08 06/09/25 08:08 06/09/25 08:08 06/09/25 08:08 06/09/25 08:08 Oxygen Delivery Method Room Air Lab / Micro Data Micro: Microbiology 05/19/25 Unknown Wound - Leg, Right Gram Stain - Final 05/19/25 Unknown Wound - Leg, Right Wound Culture - Final Pseudomonas aeruginosa 05/19/25 Unknown Wound - Leg, Right Anaerobic Culture - Final No anaerobic bacteria isolated. Physical Exam Narrative Vascular: DP and PT pulses are palpable to right lower extremity. CFT is brisk. Skin temperature gradient is warm to warm from proximal ankle to distal digits. No erythema. Nonpitting edema. Neurological: Light touch is intact. Protective station is diminished. Patient does respond to painful stimuli. Dermatological: Full-thickness wound to the posterior right leg measuring 4.1 x 4.2 x 0.3 cm. Wound base is fibrogranular nature. No tunneling. No malodor. No drainage. Excisional debridement down to including subcutaneous tissue, fascia and muscle with a number 5 mm dermal curette to the right posterior leg done without incident. Predebridement measurement was 4.0 x 4.0 x 0.2 cm. Postdebridement measurement was 4.1 x 4.2 x 0.3 cm. Musculoskeletal: No pain to palpation to full-thickness wound. No pain with calf pressure. Debridement Note Debridement Note Debridement Free Text: Excisional debridement down to including subcutaneous tissue, fascia and muscle with a number 5 mm dermal curette to the right posterior leg done without incident. Predebridement measurement was 4.0 x 4.0 x 0.2 cm. Postdebridement measurement was 4.1 x 4.2 x 0.3 cm. Post-Debridement Measurements and Additional Note: Post-Debridement Measurements/Treatment - Nurse 1 - General Ulcer Assessment Start: 06/09/25 08:08 Freq: Status: Active Protocol: JOSÉ LUIS Activity Type Activity Date Activity User E-sign Co-sign Detail Recorded Client Recorded Date Recorded By Document 06/09/25 08:08 [id number] 06/09/25 08:14 06/09/25 08:08 CHRISTOPHE - Today's Visit Information Type of service Follow-up Visit (Physician/TOWER OPERATOR ) Arrival Mode Ambulatory Patient Identification Verified (Name & Yes ) Vital Signs Temperature (97.8 F-99.1 F) 97.6 F L Temperature Source Temporal Pulse Rate (60-100) 49 L Pulse Location Monitor Respiratory Rate (12-18) 18 Respiratory rate source Observation Oxygen Delivery Method Room Air Blood Pressure (90/60-120/80) 137/69 H Blood Pressure Mean (mm Hg) 91 Source Monitor Position Sitting Blood Pressure Location Left Arm History Since Last Visit- (Skip if this is Patient's initial visit) Have you changed medications since your No last visit? Any new allergies or adverse reactions No Had a fall/change in ADL's that may No increase risk of falls Signs or symptoms of abuse and/or No neglect since last visit Have you been in the hospital since your No last visit? Has dressing in place as prescribed Yes Has compression in place as prescribed No Has offloadiing in place as prescribed N/A Experienced any changes in pain level or No management Pain Scale: 0-10 Numeric Is Patient Pain Free? Yes - Nurse 1 - General Ulcer Measurement Start: 06/09/25 08:08 Freq: Status: Active Protocol: Activity Type Activity Date Activity User E-sign Co-sign Detail Recorded Client Recorded Date Recorded By Document 06/09/25 08:08 [id number] 06/09/25 08:14 06/09/25 08:08 Wound Center Nurse 1 #1 r post le cluster -Current Size (cm) - Length 3.8 -Current Size (cm) - Width 4.4 -Current Size (cm) - Depth 0.1 -Total Square Cm 16.72 -Date of Last Picture (Recall this 06/09/25 field) -Photo Taken Yes -Epithelialization Small 1-33% -Tunneling No -Undermining/Tunneling No -Circular Undermining No -Exudate Amt Medium -Exudate Type Serosanguineous -Wound Margin Distinct, Outline Attached -Granulation Amt Medium (34-66%) -Slough/Fibrin Yes -Necrosis Amt Small (1-33%) -Necrotic Tissue Type Adherent Slough -Texture (Armida-wound Skin Appearance) Assessed -Moisture (Armida-wound Skin Appearance) Assessed -Color (Armida-wound Skin Appearance) Assessed -Temperature (Armida-wound Skin No Abnormality Appearance) (Pt Warm) -Tenderness on Palpation (Armida-wound No Skin Appearance) -Ulcer Cleansing Soap and Water -Foul Odor after Cleansing No -Anesthetic Used 5% Lidocaine Gel WC - Nurse 2 - General Ulcer CM Notes Start: 06/09/25 08:08 Freq: Status: Active Protocol: Activity Type Activity Date Activity User E-sign Co-sign Detail Recorded Client Recorded Date Recorded By Document 06/09/25 08:25 ASAD [id number] 06/09/25 08:26 ASAD 06/09/25 08:25 Wound Center Nurse 2 -Time 08:25 -Correct Patient Yes -Correct Side, Site, Position Yes -Correct Procedure Yes -Procedure Performed Yes -Type of Procedure Debridement -Clinical Debridement Muscle / Fascia -Tissue Removed Muscle -Post Debridement (cm) - Length 4.1 -Post Debridement (cm) - Width 4.2 -Post Debridement (cm) - Depth 0.3 -Total Square (Post) (cm) 17.22 -Area of Debridement (cm) - Length 4.1 -Area of Debridement (cm) - Width 4.2 -Total Square (Area) (cm) 17.22 -Tunneling No -Undermining/Tunneling No -Circular Undermining No -Wound/Ulcer Outcome Not Healed -Ulcer Cleansing Rinsed/ Irrigated with Saline -Foul Odor after Cleansing No -Bioengineered Tissue No -Bleeding Controlled with Pressure -Treatment Response Procedure Tolerated Well -Offloading No -Debridement - Muscle / Fascia, 1st Yes 20sq cm Pain Scale: 0-10 Numeric Is Patient Pain Free? Yes - Nurse 3 - General Ulcer D/C NN Start: 06/09/25 08:08 Freq: Status: Active Protocol: Activity Type Activity Date Activity User E-sign Co-sign Detail Recorded Client Recorded Date Recorded By Document 06/09/25 10:12 ASAD [id number] 06/09/25 10:13 ASAD 06/09/25 10:12 Wound Care Center Nurse 3 #1 r post le cluster -Ulcer Cleansing Rinsed/ Irrigated with Saline -Foul Odor after Cleansing No -Other Dressing DAKINS -Primary Dressing Covered/Secured with Dry Gauze & Roll Gauze, Secured with Tape RLE -Tubular Bandage Double Layer -Size of Tubigrip Used Size E -Size E ($) 2 Pain Scale: 0-10 Numeric Is Patient Pain Free? Yes WC - Visit Discharge Discharge Condition Stable Ambulatory Status Ambulatory Transportation Private Auto Medication Reconcilliation completed & Yes provided to patient/care provider Clinical Summary of Care Provided Yes Assessment/Plan Assessment/Plan (1) Chronic venous hypertension (idiopathic) with ulcer of right lower extremity: CODE(S): I87.311 - Chronic venous hypertension (idiopathic) with ulcer of right lower extremity; L97.919 - Non-pressure chronic ulcer of unspecified part of right lower leg with unspecified severity PLAN: Patient was examined and evaluated. All findings were discussed with the patient. All questions were answered to the patient's satisfaction. Excisional debridement down to including subcutaneous tissue, fascia and muscle with a number 5 mm dermal curette to the right posterior leg done without incident. Predebridement measurement was 4.0 x 4.0 x 0.2 cm. Postdebridement measurement was 4.1 x 4.2 x 0.3 cm. The right lower extremities were cleaned and patted dry. Dakin's moist gauze was applied to the full-thickness wound followed by dry sterile dressing and compression wrap. Change daily. Will plan for surgical intervention on . Risk benefits discussed with patient great detail. He is understanding. Follow-up at the wound care center with Dr. Conte in 1 week. 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
--- NOTE | 2025-06-10 09:09 | WC ---
PHOTO-RIGHT POST LE 06/09/25
[2025-06-16 08:04] VITALS: BP 133/74; PULSE 44; RESP 18; TEMP 36.4
--- NOTE | 2025-06-16 08:45 | PN.PCM_ITS ---
History of Present Illness Date of Service: 06/16/25 Chief Complaint: Full-thickness wound right posterior leg History of Wound: Patient sustained a dog bite approximately 1 to 2 weeks ago was seen at an outside hospital and sent to the wound care center for further evaluation. Progress of Wound: Stable full-thickness wound to the posterior right leg. Subjective Subjective Patient is a 70-year-old diabetic male presenting to wound care center today follow-up evaluation of posterior right leg full-thickness wound. Patient has been compliant with dressing changes. Will plan for surgical intervention consisting of surgical skin graft site prep with application of skin graft substitute this Saturday. Patient understands all risk and benefits. Denies trauma. Denies constitutional symptoms. No other pedal complaints at this time. Objective Data Objective Data Vital Signs: Vital Signs Temp Pulse Resp BP O2 Del Method 97.5 F L 44 L 18 133/74 H Room Air 06/16/25 08:04 06/16/25 08:04 06/16/25 08:04 06/16/25 08:04 06/16/25 08:04 Oxygen Delivery Method Room Air Lab / Micro Data Micro: Microbiology 05/19/25 Unknown Wound - Leg, Right Gram Stain - Final 05/19/25 Unknown Wound - Leg, Right Wound Culture - Final Pseudomonas aeruginosa 05/19/25 Unknown Wound - Leg, Right Anaerobic Culture - Final No anaerobic bacteria isolated. Physical Exam Narrative Vascular: DP and PT pulses are palpable to right lower extremity. CFT is brisk. Skin temperature gradient is warm to warm from proximal ankle to distal digits. No erythema. Nonpitting edema. Neurological: Light touch is intact. Protective station is diminished. Patient does respond to painful stimuli. Dermatological: Full-thickness wound to the posterior right leg measuring 4.0 x 4.1 x 0.2 cm. Wound base is fibrogranular nature. No tunneling. No malodor. No drainage. Excisional debridement down to including subcutaneous tissue with a number 5 mm dermal curette to the right posterior leg done without incident. Predebridement measurement was 3.9 x 4.0 x 0.1 cm. Postdebridement measurement was 4.0 x 4.1 x 0.2 cm. Musculoskeletal: No pain to palpation to full-thickness wound. No pain with calf pressure. Debridement Note Debridement Note Debridement Free Text: Excisional debridement down to including subcutaneous tissue with a number 5 mm dermal curette to the right posterior leg done without incident. Predebridement measurement was 3.9 x 4.0 x 0.1 cm. Postdebridement measurement was 4.0 x 4.1 x 0.2 cm. Post-Debridement Measurements and Additional Note: Post-Debridement Measurements/Treatment CHRISTOPHE - Nurse 1 - General Ulcer Assessment Start: 06/09/25 08:08 Freq: Status: Active Protocol: JOSÉ LUIS Activity Type Activity Date Activity User E-sign Co-sign Detail Recorded Client Recorded Date Recorded By Document 06/09/25 08:08 [id number] 06/09/25 08:14 Document 06/16/25 08:04 [id number] 06/16/25 08:06 06/09/25 06/16/25 08:08 08:04 CHRISTOPHE - Today's Visit Information Type of service Follow-up Visit Follow-up Visit (Physician/IMMUNOLOGY TEACHER (Physician/IMMUNOLOGY TEACHER ) ) Arrival Mode Ambulatory Ambulatory Patient Identification Verified (Name & Yes Yes ) Vital Signs Temperature (97.8 F-99.1 F) 97.6 F L 97.5 F L Temperature Source Temporal Temporal Pulse Rate (60-100) 49 L 44 L Pulse Location Monitor Monitor Respiratory Rate (12-18) 18 18 Respiratory rate source Observation Observation Oxygen Delivery Method Room Air Room Air Blood Pressure (90/60-120/80) 137/69 H 133/74 H Blood Pressure Mean (mm Hg) 91 93 Source Monitor Monitor Position Sitting Sitting Blood Pressure Location Left Arm Left Arm History Since Last Visit- (Skip if this is Patient's initial visit) Have you changed medications since your No No last visit? Any new allergies or adverse reactions No No Had a fall/change in ADL's that may No No increase risk of falls Signs or symptoms of abuse and/or No No neglect since last visit Have you been in the hospital since your No No last visit? Has dressing in place as prescribed Yes Yes Has compression in place as prescribed No No Has offloadiing in place as prescribed N/A N/A Experienced any changes in pain level or No No management Left Footwear Regular Shoe Right Footwear Regular Shoe Pain Scale: 0-10 Numeric Is Patient Pain Free? Yes Yes CHRISTOPHE Allen Nurse 1 - General Ulcer Measurement Start: 06/09/25 08:08 Freq: Status: Active Protocol: Activity Type Activity Date Activity User E-sign Co-sign Detail Recorded Client Recorded Date Recorded By Document 06/09/25 08:08 [id number] 06/09/25 08:14 GM Document 06/16/25 08:04 [id number] 06/16/25 08:06 06/09/25 06/16/25 08:08 08:04 Wound Center Nurse 1 #1 r post le cluster -Current Size (cm) - Length 3.8 4.0 -Current Size (cm) - Width 4.4 3.6 -Current Size (cm) - Depth 0.1 0.1 -Total Square Cm 16.72 14.40 -Date of Last Picture (Recall this 06/09/25 06/16/25 field) -Photo Taken Yes Yes -Epithelialization Small 1-33% Small 1-33% -Tunneling No No -Undermining/Tunneling No No -Circular Undermining No No -Exudate Amt Medium Large -Exudate Type Serosanguineous Serosanguineous -Wound Margin Distinct, Distinct, Outline Outline Attached Attached -Granulation Amt Medium (34-66%) Large (67-100%) -Granulation Quality Red -Slough/Fibrin Yes Yes -Necrosis Amt Small (1-33%) Small (1-33%) -Necrotic Tissue Type Adherent Slough Adherent Slough -Texture (Armida-wound Skin Appearance) Assessed Assessed -Moisture (Armida-wound Skin Appearance) Assessed Assessed -Color (Armida-wound Skin Appearance) Assessed Assessed -Temperature (Armida-wound Skin No Abnormality No Abnormality Appearance) (Pt Warm) (Pt Warm) -Tenderness on Palpation (Armida-wound No No Skin Appearance) -Ulcer Cleansing Soap and Water Soap and Water -Foul Odor after Cleansing No No -Anesthetic Used 5% Lidocaine 5% Lidocaine Gel Gel WC - Nurse 2 - General Ulcer CM Notes Start: 06/09/25 08:08 Freq: Status: Active Protocol: Activity Type Activity Date Activity User E-sign Co-sign Detail Recorded Client Recorded Date Recorded By Document 06/09/25 08:25 [id number] 06/09/25 08:26 JF Document 06/16/25 08:21 [id number] 06/16/25 08:23 JF 06/09/25 06/16/25 08:25 08:21 Wound Center Nurse 2 #1 r post le cluster -Time 08:25 08:21 -Correct Patient Yes Yes -Correct Side, Site, Position Yes Yes -Correct Procedure Yes Yes -Procedure Performed Yes Yes -Type of Procedure Debridement Debridement -Clinical Debridement Muscle / Fascia Subcutaneous -Tissue Removed Muscle Subcutaneous -Post Debridement (cm) - Length 4.1 4.0 -Post Debridement (cm) - Width 4.2 4.1 -Post Debridement (cm) - Depth 0.3 0.2 -Total Square (Post) (cm) 17.22 16.40 -Area of Debridement (cm) - Length 4.1 4.0 -Area of Debridement (cm) - Width 4.2 4.1 -Total Square (Area) (cm) 17.22 16.40 -Tunneling No No -Undermining/Tunneling No No -Circular Undermining No No -Wound/Ulcer Outcome Not Healed Not Healed -Ulcer Cleansing Rinsed/ Rinsed/ Irrigated with Irrigated with Saline Saline -Foul Odor after Cleansing No No -Bioengineered Tissue No No -Bleeding Controlled with Pressure Pressure -Treatment Response Procedure Procedure Tolerated Well Tolerated Well -Offloading No No -Debridement - Subq, 1st 20sq cm Yes -Debridement - Muscle / Fascia, 1st Yes 20sq cm Pain Scale: 0-10 Numeric Is Patient Pain Free? Yes Yes - Nurse 3 - General Ulcer D/C NN Start: 06/09/25 08:08 Freq: Status: Active Protocol: Activity Type Activity Date Activity User E-sign Co-sign Detail Recorded Client Recorded Date Recorded By Document 06/09/25 10:12 [id number] 06/09/25 10:13 Document 06/16/25 08:37 [id number] 06/16/25 08:38 06/09/25 06/16/25 10:12 08:37 Wound Care Center Nurse 3 #1 r post le cluster -Ulcer Cleansing Rinsed/ Not Cleansed Irrigated with Saline -Foul Odor after Cleansing No No -Other Dressing DAKINS dakins moist gauze -Primary Dressing Covered/Secured with Dry Gauze & Dry Gauze,Dry Roll Gauze, Gauze & Roll Secured with Gauze,Secured Tape with Tape RLE -Lotion applied to leg before No compression wrap -Tubular Bandage Double Layer Double Layer -Size of Tubigrip Used Size E Size E -Size E ($) 2 2 Pain Scale: 0-10 Numeric Is Patient Pain Free? Yes Yes WC - Visit Discharge Discharge Condition Stable Stable Ambulatory Status Ambulatory Ambulatory Transportation Private Auto Private Auto Medication Reconcilliation completed & Yes provided to patient/care provider Clinical Summary of Care Provided Yes Assessment/Plan Assessment/Plan (1) Chronic venous hypertension (idiopathic) with ulcer of right lower extremity: CODE(S): I87.311 - Chronic venous hypertension (idiopathic) with ulcer of right lower extremity; L97.919 - Non-pressure chronic ulcer of unspecified part of right lower leg with unspecified severity PLAN: Patient was examined and evaluated. All findings were discussed with the alfonso contreras. All questions were answered to the patient's satisfaction. Excisional debridement down to including subcutaneous tissue with a number 5 mm dermal curette to the right posterior leg done without incident. Predebridement measurement was 3.9 x 4.0 x 0.1 cm. Postdebridement measurement was 4.0 x 4.1 x 0.2 cm. The right lower extremities were cleaned and patted dry. Dakin's moist gauze was applied to the full-thickness wound followed by dry sterile dressing and compression wrap. Change daily. Will plan for surgical intervention on 06/18/25. Risk benefits discussed with patient great detail. He is understanding. Follow-up at the wound care center with Dr. Conte in 1 week. 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
--- NOTE | 2025-06-17 09:09 | WC ---
PHOTO-RIGHT POST LEG 06/16/25
--- NOTE | 2025-06-17 09:13 | WC ---
PHOTO-RIGHT POST LEG 06/16/25
[2025-06-23 08:17] VITALS: BP 129/72; PULSE 57; RESP 18; TEMP 36.7
--- NOTE | 2025-06-23 08:27 | PCM.WC.PN ---
History of Present Illness Date of Service: 06/23/25 Chief Complaint: Full-thickness wound right posterior leg History of Wound: Patient sustained a dog bite approximately 1 to 2 weeks ago was seen at an outside hospital and sent to the wound care center for further evaluation. Progress of Wound: Stable full-thickness wound to the posterior right leg status post surgical skin graft site prep application skin graft substitute. DOS: 06/18/2025 Subjective Subjective Patient is a 70-year-old diabetic male presenting to clinic today follow-up evaluation status post surgical skin graft site prep application skin graft substitute to the right lower extremity. DOS: 06/18/2025. Patient is left the dressing clean dry and intact. Denies strikethrough. He denies any pain to the area. He denies constitutional symptoms. No other pedal complaints at this time Objective Data Objective Data Vital Signs: Vital Signs Temp Pulse Resp BP O2 Del Method 98.0 F 57 L 18 129/72 H Room Air 06/23/25 08:17 06/23/25 08:17 06/23/25 08:17 06/23/25 08:17 06/23/25 08:17 Oxygen Delivery Method Room Air Lab / Micro Data Micro: Microbiology 05/19/25 Unknown Wound - Leg, Right Gram Stain - Final 05/19/25 Unknown Wound - Leg, Right Wound Culture - Final Pseudomonas aeruginosa 05/19/25 Unknown Wound - Leg, Right Anaerobic Culture - Final No anaerobic bacteria isolated. Physical Exam Narrative Vascular: DP and PT pulses are palpable to right lower extremity. CFT is brisk. Skin temperature gradient is warm to warm from proximal ankle to distal digits. Blanchable periwound erythema. Nonpitting edema. Neurological: Light touch is intact. Protective station is diminished. Patient does respond to painful stimuli. Dermatological: Full-thickness wound to the posterior right leg measuring 5.2 x 5.0 x 0.2 cm. Wound base is fibrogranular nature. No tunneling. No malodor. No drainage. Musculoskeletal: No pain to palpation to full-thickness wound. No pain with calf pressure. Debridement Note Debridement Note Debridement Free Text: Excisional debridement down to including subcutaneous tissue with a number 5 mm dermal curette to the right posterior leg done without incident. Predebridement measurement was 3.9 x 4.0 x 0.1 cm. Postdebridement measurement was 4.0 x 4.1 x 0.2 cm. Post-Debridement Measurements and Additional Note: Post-Debridement Measurements/Treatment - Nurse 1 - General Ulcer Assessment Start: 06/09/25 08:08 Freq: Status: Active Protocol: JOSÉ LUIS Activity Type Activity Date Activity User E-sign Co-sign Detail Recorded Client Recorded Date Recorded By Document 06/09/25 08:08 [id number] 06/09/25 08:14 Document 06/16/25 08:04 [id number] 06/16/25 08:06 Document 06/23/25 08:17 [id number] 06/23/25 08:18 06/09/25 06/16/25 06/23/25 08:08 08:04 08:17 - Today's Visit Information Type of service Follow-up Visit Follow-up Visit Follow-up Visit (Physician/PATIENT REGISTRATION CLERK (Physician/PATIENT REGISTRATION CLERK (Physician/PATIENT REGISTRATION CLERK ) ) ) Arrival Mode Ambulatory Ambulatory Ambulatory Patient Identification Verified (Name & Yes Yes Yes ) Patient Requires Transmission-Based No Precautions Vital Signs Temperature (97.8 F-99.1 F) 97.6 F L 97.5 F L 98.0 F Temperature Source Temporal Temporal Temporal Pulse Rate (60-100) 49 L 44 L 57 L Pulse Location Monitor Monitor Monitor Respiratory Rate (12-18) 18 18 18 Respiratory rate source Observation Observation Observation Oxygen Delivery Method Room Air Room Air Room Air Blood Pressure (90/60-120/80) 137/69 H 133/74 H 129/72 H Blood Pressure Mean (mm Hg) 91 93 91 Source Monitor Monitor Monitor Position Sitting Sitting Sitting Blood Pressure Location Left Arm Left Arm Left Arm History Since Last Visit- (Skip if this is Patient's initial visit) Have you changed medications since your No No No last visit? Any new allergies or adverse reactions No No No Had a fall/change in ADL's that may No No No increase risk of falls Signs or symptoms of abuse and/or No No No neglect since last visit Have you been in the hospital since your No No No last visit? Has dressing in place as prescribed Yes Yes Yes Has compression in place as prescribed No No Yes Has offloadiing in place as prescribed N/A N/A N/A Experienced any changes in pain level or No No No management Left Footwear Regular Shoe Right Footwear Regular Shoe Pain Scale: 0-10 Numeric Is Patient Pain Free? Yes Yes Yes WC - Nurse 1 - General Ulcer Measurement Start: 06/09/25 08:08 Freq: Status: Active Protocol: Activity Type Activity Date Activity User E-sign Co-sign Detail Recorded Client Recorded Date Recorded By Document 06/09/25 08:08 [id number] 06/09/25 08:14 GM Document 06/16/25 08:04 [id number] 06/16/25 08:06 GM Document 06/23/25 08:17 [id number] 06/23/25 08:18 06/09/25 06/16/25 06/23/25 08:08 08:04 08:17 Wound Center Nurse 1 #1 r post le cluster -Current Size (cm) - Length 3.8 4.0 0.1 -Current Size (cm) - Width 4.4 3.6 0.1 -Current Size (cm) - Depth 0.1 0.1 0.1 -Total Square Cm 16.72 14.40 0.01 -Date of Last Picture (Recall this 06/09/25 06/16/25 field) -Photo Taken Yes Yes No -Epithelialization Small 1-33% Small 1-33% -Tunneling No No -Undermining/Tunneling No No -Circular Undermining No No -Exudate Amt Medium Large Large -Exudate Type Serosanguineous Serosanguineous Yellow/Green -Wound Margin Distinct, Distinct, Distinct, Outline Outline Outline Attached Attached Attached -Granulation Amt Medium (34-66%) Large (67-100%) -Granulation Quality Red -Slough/Fibrin Yes Yes -Necrosis Amt Small (1-33%) Small (1-33%) -Necrotic Tissue Type Adherent Slough Adherent Slough -Texture (Armida-wound Skin Appearance) Assessed Assessed Assessed -Moisture (Armida-wound Skin Appearance) Assessed Assessed Assessed -Color (Armida-wound Skin Appearance) Assessed Assessed Assessed, Erythema -Temperature (Armida-wound Skin No Abnormality No Abnormality Appearance) (Pt Warm) (Pt Warm) -Tenderness on Palpation (Armida-wound No No Skin Appearance) -Ulcer Cleansing Soap and Water Soap and Water -Foul Odor after Cleansing No No -Anesthetic Used 5% Lidocaine 5% Lidocaine Gel Gel -Wound Comment(s) skin sub still on, post surgery WC - Nurse 2 - General Ulcer CM Notes Start: 06/09/25 08:08 Freq: Status: Active Protocol: Activity Type Activity Date Activity User E-sign Co-sign Detail Recorded Client Recorded Date Recorded By Document 06/09/25 08:25 [id number] 06/09/25 08:26 JF Document 06/16/25 08:21 JF [id number] 06/16/25 08:23 JF Document 06/23/25 08:24 JF [id number] 06/23/25 08:25 JF 06/09/25 06/16/25 06/23/25 08:25 08:21 08:24 Wound Center Nurse 2 #1 r post le cluster -Time 08:25 08:21 -Correct Patient Yes Yes Yes -Correct Side, Site, Position Yes Yes No -Correct Procedure Yes Yes No -Procedure Performed Yes Yes No -Type of Procedure Debridement Debridement -Clinical Debridement Muscle / Fascia Subcutaneous -Tissue Removed Muscle Subcutaneous -Post Debridement (cm) - Length 4.1 4.0 5.2 -Post Debridement (cm) - Width 4.2 4.1 5 -Post Debridement (cm) - Depth 0.3 0.2 0.8 -Total Square (Post) (cm) 17.22 16.40 26.0 -Area of Debridement (cm) - Length 4.1 4.0 5.2 -Area of Debridement (cm) - Width 4.2 4.1 5 -Total Square (Area) (cm) 17.22 16.40 26.0 -Tunneling No No No -Undermining/Tunneling No No No -Circular Undermining No No No -Wound/Ulcer Outcome Not Healed Not Healed Not Healed -Ulcer Cleansing Rinsed/ Rinsed/ Rinsed/ Irrigated with Irrigated with Irrigated with Saline Saline Saline -Foul Odor after Cleansing No No No -Bioengineered Tissue No No No -Bleeding Controlled with Pressure Pressure Pressure -Treatment Response Procedure Procedure Procedure Tolerated Well Tolerated Well Tolerated Well -Offloading No No No -Debridement - Subq, 1st 20sq cm Yes No -Debridement - Muscle / Fascia, 1st Yes 20sq cm Pain Scale: 0-10 Numeric Is Patient Pain Free? Yes Yes Yes WC - Nurse 3 - General Ulcer D/C NN Start: 06/09/25 08:08 Freq: Status: Active Protocol: Activity Type Activity Date Activity User E-sign Co-sign Detail Recorded Client Recorded Date Recorded By Document 06/09/25 10:12 [id number] 06/09/25 10:13 Document 06/16/25 08:37 [id number] 06/16/25 08:38 Document 06/23/25 08:26 [id number] 06/23/25 08:26 06/09/25 06/16/25 06/23/25 10:12 08:37 08:26 Wound Care Center Nurse 3 #1 r post le cluster -Ulcer Cleansing Rinsed/ Not Cleansed Rinsed/ Irrigated with Irrigated with Saline Saline -Foul Odor after Cleansing No No No -Other Dressing DAKINS dakins moist gauze -Primary Dressing Covered/Secured with Dry Gauze & Dry Gauze,Dry Dry Gauze,Dry Roll Gauze, Gauze & Roll Gauze & Roll Secured with Gauze,Secured Gauze Tape with Tape RLE -Lotion applied to leg before No compression wrap -Compression Wrap Anam Wrap -Tubular Bandage Double Layer Double Layer -Size of Tubigrip Used Size E Size E -Size E ($) 2 2 Pain Scale: 0-10 Numeric Is Patient Pain Free? Yes Yes Yes WC - Visit Discharge Discharge Condition Stable Stable Stable Ambulatory Status Ambulatory Ambulatory Ambulatory,Cane Transportation Private Auto Private Auto Private Auto Medication Reconcilliation completed & Yes Yes provided to patient/care provider Clinical Summary of Care Provided Yes Yes Assessment/Plan Assessment/Plan (1) Chronic venous hypertension (idiopathic) with ulcer of right lower extremity: CODE(S): I87.311 - Chronic venous hypertension (idiopathic) with ulcer of right lower extremity; L97.919 - Non-pressure chronic ulcer of unspecified part of right lower leg with unspecified severity PLAN: Patient was examined and evaluated. All findings were discussed with the patient. All questions were answered to the patient's satisfaction. After exam the patient has evidence of blanchable erythema we will place on ciprofloxacin 150 mg twice daily. He was instructed to stop his heart medication as it can have some synergistic effects and cause some irregularities which she is understanding of. The wound was dressed with saline moist gauze dry sterile dressing and compression wrap was donned to the right extremity. Patient will change every other day as instructed. Will give the patient a note to be excused from work for the rest the week and return on Saturday. Follow-up at the wound care center with Dr. Conte in 1 week. 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
[2025-06-30 08:23] VITALS: BP 149/82; PULSE 48; RESP 16; TEMP 36.3
--- NOTE | 2025-06-30 09:14 | PCM.WC.PN ---
History of Present Illness Date of Service: 06/30/25 Chief Complaint: Full-thickness wound right posterior leg History of Wound: Patient sustained a dog bite approximately 1 to 2 weeks ago was seen at an outside hospital and sent to the wound care center for further evaluation. Progress of Wound: Stable full-thickness wound to the posterior right leg status post surgical skin graft site prep application skin graft substitute. DOS: 06/18/2025 Subjective Subjective Patient is a 70-year-old diabetic male presenting to the wound care center today for follow-up evaluation of full-thickness wound to the posterior right leg status post surgical skin graft site prep with application skin graft substitute. He has been compliant with dressing changes. He is taking his antibiotic as prescribed. Great improvement to the leg especially with redness. Denies trauma. Denies constitutional symptoms. No other pedal complaints at this time. Objective Data Objective Data Vital Signs: Vital Signs Temp Pulse Resp BP O2 Del Method 97.3 F L 48 L 16 149/82 H Room Air 06/30/25 08:23 06/30/25 08:23 06/30/25 08:23 06/30/25 08:23 06/30/25 08:23 Oxygen Delivery Method Room Air Lab / Micro Data Micro: Microbiology 05/19/25 Unknown Wound - Leg, Right Gram Stain - Final 05/19/25 Unknown Wound - Leg, Right Wound Culture - Final Pseudomonas aeruginosa 05/19/25 Unknown Wound - Leg, Right Anaerobic Culture - Final No anaerobic bacteria isolated. Physical Exam Narrative Vascular: DP and PT pulses are palpable to right lower extremity. CFT is brisk. Skin temperature gradient is warm to warm from proximal ankle to distal digits. Blanchable periwound erythema, improved. Nonpitting edema. Neurological: Light touch is intact. Protective station is diminished. Patient does respond to painful stimuli. Dermatological: Full-thickness wound to the posterior right leg measuring 4.5 x 5.0 x 0.2 cm. Wound base is fibrogranular nature. No tunneling. No malodor. No drainage. Excisional debridement down to and including subcutaneous tissue with a number 5 mm dermal curette to the full-thickness wound to the posterior right leg. Done without incident. Predebridement measurement was 4.3 x 4.8 x 0.1 cm. Postdebridement measurements 4.5 x 5.0 x 0.2 cm. Musculoskeletal: No pain to palpation to full-thickness wound. No pain with calf pressure. Debridement Note Debridement Note Debridement Free Text: Excisional debridement down to and including subcutaneous tissue with a number 5 mm dermal curette to the full-thickness wound to the posterior right leg. Done without incident. Predebridement measurement was 4.3 x 4.8 x 0.1 cm. Postdebridement measurements 4.5 x 5.0 x 0.2 cm. Post-Debridement Measurements and Additional Note: Post-Debridement Measurements/Treatment - Nurse 1 - General Ulcer Assessment Start: 06/09/25 08:08 Freq: Status: Active Protocol: CHRISTOPHE.LOWEXT Activity Type Activity Date Activity User E-sign Co-sign Detail Recorded Client Recorded Date Recorded By Document 06/09/25 08:08 [id number] 06/09/25 08:14 Document 06/16/25 08:04 GM [id number] 06/16/25 08:06 Document 06/23/25 08:17 [id number] 06/23/25 08:18 Document 06/30/25 08:23 [id number] 06/30/25 08:26 06/09/25 06/16/25 06/23/25 08:08 08:04 08:17 - Today's Visit Information Type of service Follow-up Visit Follow-up Visit Follow-up Visit (Physician/DRYING ROOM OPERATOR (Physician/DRYING ROOM OPERATOR (Physician/DRYING ROOM OPERATOR ) ) ) Arrival Mode Ambulatory Ambulatory Ambulatory Transfer Assistance Patient Identification Verified (Name & Yes Yes Yes ) Patient Requires Transmission-Based No Precautions Vital Signs Temperature (97.8 F-99.1 F) 97.6 F L 97.5 F L 98.0 F Temperature Source Temporal Temporal Temporal Pulse Rate (60-100) 49 L 44 L 57 L Pulse Location Monitor Monitor Monitor Respiratory Rate (12-18) 18 18 18 Respiratory rate source Observation Observation Observation Oxygen Delivery Method Room Air Room Air Room Air Blood Pressure (90/60-120/80) 137/69 H 133/74 H 129/72 H Blood Pressure Mean (mm Hg) 91 93 91 Source Monitor Monitor Monitor Position Sitting Sitting Sitting Blood Pressure Location Left Arm Left Arm Left Arm History Since Last Visit- (Skip if this is Patient's initial visit) Have you changed medications since your No No No last visit? Any new allergies or adverse reactions No No No Had a fall/change in ADL's that may No No No increase risk of falls Signs or symptoms of abuse and/or No No No neglect since last visit Have you been in the hospital since your No No No last visit? Has dressing in place as prescribed Yes Yes Yes Has compression in place as prescribed No No Yes Has offloadiing in place as prescribed N/A N/A N/A Experienced any changes in pain level or No No No management Left Footwear Regular Shoe Right Footwear Regular Shoe Pain Scale: 0-10 Numeric Is Patient Pain Free? Yes Yes Yes 06/30/25 08:23 - Today's Visit Information Type of service Follow-up Visit (Physician/DRYING ROOM OPERATOR ) Arrival Mode Ambulatory Transfer Assistance None Patient Identification Verified (Name & Yes ) Patient Requires Transmission-Based Precautions Vital Signs Temperature (97.8 F-99.1 F) 97.3 F L Temperature Source Temporal Pulse Rate (60-100) 48 L Pulse Location Monitor Respiratory Rate (12-18) 16 Respiratory rate source Observation Oxygen Delivery Method Room Air Blood Pressure (90/60-120/80) 149/82 H Blood Pressure Mean (mm Hg) 104 Source Monitor Position Sitting Blood Pressure Location Right Arm History Since Last Visit- (Skip if this is Patient's initial visit) Have you changed medications since your No last visit? Any new allergies or adverse reactions No Had a fall/change in ADL's that may No increase risk of falls Signs or symptoms of abuse and/or No neglect since last visit Have you been in the hospital since your No last visit? Has dressing in place as prescribed Yes Has compression in place as prescribed Yes Has offloadiing in place as prescribed N/A Experienced any changes in pain level or No management Left Footwear Multipodus Splint/Boot Right Footwear Multipodus Splint/Boot Pain Scale: 0-10 Numeric Is Patient Pain Free? Yes - Nurse 1 - General Ulcer Measurement Start: 06/09/25 08:08 Freq: Status: Active Protocol: Activity Type Activity Date Activity User E-sign Co-sign Detail Recorded Client Recorded Date Recorded By Document 06/09/25 08:08 [id number] 06/09/25 08:14 Document 06/16/25 08:04 [id number] 06/16/25 08:06 Document 06/23/25 08:17 [id number] 06/23/25 08:18 GM Document 06/30/25 08:23 [id number] 06/30/25 08:26 GM 06/09/25 06/16/25 06/23/25 08:08 08:04 08:17 Wound Center Nurse 1 #1 r post le cluster -Current Size (cm) - Length 3.8 4.0 0.1 -Current Size (cm) - Width 4.4 3.6 0.1 -Current Size (cm) - Depth 0.1 0.1 0.1 -Total Square Cm 16.72 14.40 0.01 -Date of Last Picture (Recall this 06/09/25 06/16/25 field) -Photo Taken Yes Yes No -Epithelialization Small 1-33% Small 1-33% -Tunneling No No -Undermining/Tunneling No No -Circular Undermining No No -Exudate Amt Medium Large Large -Exudate Type Serosanguineous Serosanguineous Yellow/Green -Wound Margin Distinct, Distinct, Distinct, Outline Outline Outline Attached Attached Attached -Granulation Amt Medium (34-66%) Large (67-100%) -Granulation Quality Red -Slough/Fibrin Yes Yes -Necrosis Amt Small (1-33%) Small (1-33%) -Necrotic Tissue Type Adherent Slough Adherent Slough -Texture (Armida-wound Skin Appearance) Assessed Assessed Assessed -Moisture (Armida-wound Skin Appearance) Assessed Assessed Assessed -Color (Armida-wound Skin Appearance) Assessed Assessed Assessed, Erythema -Temperature (Armida-wound Skin No Abnormality No Abnormality Appearance) (Pt Warm) (Pt Warm) -Tenderness on Palpation (Armida-wound No No Skin Appearance) -Ulcer Cleansing Soap and Water Soap and Water -Foul Odor after Cleansing No No -Anesthetic Used 5% Lidocaine 5% Lidocaine Gel Gel -Wound Comment(s) skin sub still on, post surgery 06/30/25 08:23 Wound Center Nurse 1 #1 r post le cluster -Current Size (cm) - Length 0.1 -Current Size (cm) - Width 0.1 -Current Size (cm) - Depth 0.1 -Total Square Cm 0.01 -Date of Last Picture (Recall this field) -Photo Taken No -Epithelialization None Present -Tunneling No -Undermining/Tunneling No -Circular Undermining No -Exudate Amt Large -Exudate Type Yellow/Green -Wound Margin Distinct, Outline Attached -Granulation Amt Small (1-33%) -Granulation Quality [place] -Slough/Fibrin Yes -Necrosis Amt -Necrotic Tissue Type Adherent Slough -Texture (Armida-wound Skin Appearance) Assessed -Moisture (Armida-wound Skin Appearance) Assessed -Color (Armida-wound Skin Appearance) Assessed -Temperature (Armida-wound Skin No Abnormality Appearance) (Pt Warm) -Tenderness on Palpation (Armida-wound No Skin Appearance) -Ulcer Cleansing Rinsed/ Irrigated with Saline -Foul Odor after Cleansing No -Anesthetic Used -Wound Comment(s) WC - Nurse 2 - General Ulcer CM Notes Start: 06/09/25 08:08 Freq: Status: Active Protocol: Activity Type Activity Date Activity User E-sign Co-sign Detail Recorded Client Recorded Date Recorded By Document 06/09/25 08:25 [id number] 06/09/25 08:26 Document 06/16/25 08:21 [id number] 06/16/25 08:23 Document 06/23/25 08:24 [id number] 06/23/25 08:25 Document 06/30/25 08:29 [id number] 06/30/25 08:30 06/09/25 06/16/25 06/23/25 08:25 08:21 08:24 Wound Center Nurse 2 #1 r post le cluster -Time 08:25 08:21 -Correct Patient Yes Yes Yes -Correct Side, Site, Position Yes Yes No -Correct Procedure Yes Yes No -Procedure Performed Yes Yes No -Type of Procedure Debridement Debridement -Clinical Debridement Muscle / Fascia Subcutaneous -Tissue Removed Muscle Subcutaneous -Post Debridement (cm) - Length 4.1 4.0 5.2 -Post Debridement (cm) - Width 4.2 4.1 5 -Post Debridement (cm) - Depth 0.3 0.2 0.8 -Total Square (Post) (cm) 17.22 16.40 26.0 -Area of Debridement (cm) - Length 4.1 4.0 5.2 -Area of Debridement (cm) - Width 4.2 4.1 5 -Total Square (Area) (cm) 17.22 16.40 26.0 -Tunneling No No No -Undermining/Tunneling No No No -Circular Undermining No No No -Wound/Ulcer Outcome Not Healed Not Healed Not Healed -Ulcer Cleansing Rinsed/ Rinsed/ Rinsed/ Irrigated with Irrigated with Irrigated with Saline Saline Saline -Foul Odor after Cleansing No No No -Bioengineered Tissue No No No -Bleeding Controlled with Pressure Pressure Pressure -Treatment Response Procedure Procedure Procedure Tolerated Well Tolerated Well Tolerated Well -Offloading No No No -Debridement - Subq, 1st 20sq cm Yes No -Debridement, SubQ, ea addt'l 20sq cm or part thereof -Debridement - Muscle / Fascia, 1st Yes 20sq cm Pain Scale: 0-10 Numeric Is Patient Pain Free? Yes Yes Yes 06/30/25 08:29 Wound Center Nurse 2 #1 r post le cluster -Time 08:30 -Correct Patient Yes -Correct Side, Site, Position Yes -Correct Procedure Yes -Procedure Performed Yes -Type of Procedure Debridement -Clinical Debridement Subcutaneous -Tissue Removed Subcutaneous -Post Debridement (cm) - Length 4.5 -Post Debridement (cm) - Width 5.0 -Post Debridement (cm) - Depth 0.2 -Total Square (Post) (cm) 22.50 -Area of Debridement (cm) - Length 4.5 -Area of Debridement (cm) - Width 5 -Total Square (Area) (cm) 22.5 -Tunneling No -Undermining/Tunneling No -Circular Undermining No -Wound/Ulcer Outcome Not Healed -Ulcer Cleansing Rinsed/ Irrigated with Saline -Foul Odor after Cleansing No -Bioengineered Tissue No -Bleeding Controlled with Pressure -Treatment Response Procedure Tolerated Well -Offloading No -Debridement - Subq, 1st 20sq cm Yes -Debridement, SubQ, ea addt'l 20sq cm 1 or part thereof -Debridement - Muscle / Fascia, 1st 20sq cm Pain Scale: 0-10 Numeric Is Patient Pain Free? Yes - Nurse 3 - General Ulcer D/C NN Start: 06/09/25 08:08 Freq: Status: Active Protocol: Activity Type Activity Date Activity User E-sign Co-sign Detail Recorded Client Recorded Date Recorded By Document 06/09/25 10:12 [id number] 06/09/25 10:13 Document 06/16/25 08:37 [id number] 06/16/25 08:38 Document 06/23/25 08:26 [id number] 06/23/25 08:26 JF Document 06/30/25 08:38 RB [id number] 06/30/25 08:39 RB 06/09/25 06/16/25 06/23/25 10:12 08:37 08:26 Wound Care Center Nurse 3 #1 r post le cluster -Ulcer Cleansing Rinsed/ Not Cleansed Rinsed/ Irrigated with Irrigated with Saline Saline -Foul Odor after Cleansing No No No -Other Dressing DAKINS dakins moist gauze -Primary Dressing Covered/Secured with Dry Gauze & Dry Gauze,Dry Dry Gauze,Dry Roll Gauze, Gauze & Roll Gauze & Roll Secured with Gauze,Secured Gauze Tape with Tape RLE -Lotion applied to leg before No compression wrap -Compression Wrap Anam Wrap -Tubular Bandage Double Layer Double Layer -Size of Tubigrip Used Size E Size E -Size E ($) 2 2 Treatment Response Pain Scale: 0-10 Numeric Is Patient Pain Free? Yes Yes Yes WC - Visit Discharge Discharge Condition Stable Stable Stable Ambulatory Status Ambulatory Ambulatory Ambulatory,Cane Transportation Private Auto Private Auto Private Auto Medication Reconcilliation completed & Yes Yes provided to patient/care provider Clinical Summary of Care Provided Yes Yes 06/30/25 08:38 Wound Care Center Nurse 3 #1 r post le cluster -Ulcer Cleansing Rinsed/ Irrigated with Saline -Foul Odor after Cleansing -Other Dressing dakins moistened -Primary Dressing Covered/Secured with Dry Gauze,Dry Gauze & Roll Gauze,Secured with Tape RLE -Lotion applied to leg before compression wrap -Compression Wrap Anam Wrap -Tubular Bandage -Size of Tubigrip Used -Size E ($) Treatment Response Procedure Tolerated Well Pain Scale: 0-10 Numeric Is Patient Pain Free? Yes WC - Visit Discharge Discharge Condition Stable Ambulatory Status Ambulatory Transportation Private Auto Medication Reconcilliation completed & No provided to patient/care provider Clinical Summary of Care Provided Yes Assessment/Plan Assessment/Plan (1) Chronic venous hypertension (idiopathic) with ulcer of right lower extremity: CODE(S): I87.311 - Chronic venous hypertension (idiopathic) with ulcer of right lower extremity; L97.919 - Non-pressure chronic ulcer of unspecified part of right lower leg with unspecified severity PLAN: Patient was examined and evaluated. All findings were discussed with the patient. All questions were answered to the patient's satisfaction. Excisional debridement down to and including subcutaneous tissue with a number 5 mm dermal curette to the full-thickness wound to the posterior right leg. Done without incident. Predebridement measurement was 4.3 x 4.8 x 0.1 cm. Postdebridement measurements 4.5 x 5.0 x 0.2 cm. The areas were cleaned and patted dry. They send moist gauze followed by dry sterile dressing and compression wrap from sulcus of toes to mid calf was applied. Educated patient on the importance of correct compression to stop from the increase in swelling to the proximal leg which he is understanding of. Patient will change the dressing daily. Will continue strict blood sugar control. Continue antibiotics until gone. Follow-up at the wound care center with Dr. Conte in 2 week. 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
== END 2025-07-09 23:59 | disposition home or self-care (01) ==
LOC: WC 08:00
PROVIDERS: PCP Nurse Practitioner Family; Referring Provider Nurse Practitioner Family; Visit Provider Podiatrist Foot & Ankle Surgery
DX: I87.311 Chronic venous hypertension (idiopathic) with ulcer of right lower extremity (principal); E11.622 Type 2 diabetes mellitus with other skin ulcer; L97.812 Non-pressure chronic ulcer of other part of right lower leg with fat layer exposed; E11.42 Type 2 diabetes mellitus with diabetic polyneuropathy
CPT/HCPCS: 11042; 11043; 11045; 99213; G0463

== ENCOUNTER 2025-07-28 08:00 | Outpatient (RCR) | payer OTHER, SELFPAY ==
[2025-07-14 08:09] VITALS: BP 129/76; PULSE 53; RESP 17; TEMP 36.1
--- NOTE | 2025-07-14 08:48 | PCM.WC.PN ---
History of Present Illness Date of Service: 08/11/25 Chief Complaint: Full-thickness wound right posterior leg History of Wound: Chronic full-thickness wound right posterior leg secondary to dog bite Progress of Wound: Stable full-thickness wound slow to heal Subjective Subjective Patient is a 70-year-old diabetic male presenting to wound care center today follow-up evaluation of chronic full-thickness wound to the posterior right leg. Patient states that there is some redness and pain especially with standing or walking for long periods of time. He is concerned for infection. He is doing dressing changes with Dakin solution as discussed. Blood sugars well-controlled and was 93 mg/dL while in clinic today. He denies trauma. Denies constitutional symptoms. No other pedal complaints at this time. Objective Data Objective Data Vital Signs: Vital Signs Temp Pulse Resp BP O2 Del Method 97.0 F L 53 L 17 129/76 H Room Air 07/14/25 08:09 07/14/25 08:09 07/14/25 08:09 07/14/25 08:09 07/14/25 08:09 Oxygen Delivery Method Room Air Lab / Micro Data Micro: Microbiology 05/19/25 Unknown Wound - Leg, Right Gram Stain - Final 05/19/25 Unknown Wound - Leg, Right Wound Culture - Final Pseudomonas aeruginosa 05/19/25 Unknown Wound - Leg, Right Anaerobic Culture - Final No anaerobic bacteria isolated. Physical Exam Narrative Vascular: DP and PT pulses are palpable to right lower extremity. CFT is brisk. Skin temperature gradient is warm to warm from proximal ankle to distal digits. Blanchable periwound erythema. Nonpitting edema. Neurological: Light touch is intact. Protective station is diminished. Patient does respond to painful stimuli. Dermatological: Full-thickness wound to the posterior right leg measuring 4.7 x 5.3 x 0.5 cm. Wound base is fibrogranular nature. No tunneling. No malodor. No drainage. Excisional debridement down to and including subcutaneous tissue, fascia and muscle with a number 5 mm dermal curette to the full-thickness wound to the posterior right leg. Done without incident. Predebridement measurement was 4.5 x 5.1 by 0.3 cm. Postdebridement measurements 4.7 x 5.3 x 0.5 cm. Musculoskeletal: No pain to palpation to full-thickness wound. No pain with calf pressure. Debridement Note Debridement Note Debridement Free Text: Excisional debridement down to and including subcutaneous tissue, fascia and muscle with a number 5 mm dermal curette to the full-thickness wound to the posterior right leg. Done without incident. Predebridement measurement was 4.5 x 5.1 by 0.3 cm. Postdebridement measurements 4.7 x 5.3 x 0.5 cm. Post-Debridement Measurements and Additional Note: Post-Debridement Measurements/Treatment CHRISTOPHE - Nurse 1 - General Ulcer Assessment Start: 07/14/25 08:09 Freq: Status: Active Protocol: JOSÉ LUIS Activity Type Activity Date Activity User E-sign Co-sign Detail Recorded Client Recorded Date Recorded By Document 07/14/25 08:09 TS [id number] 07/14/25 08:15 TS 07/14/25 08:09 WC - Today's Visit Information Type of service Follow-up Visit (Physician/GEOPHYSICAL COMPUTER ) Arrival Mode Ambulatory Patient Requires Transmission-Based No Precautions Safety Precautions Fall Prevention Vital Signs Temperature (97.8 F-99.1 F) 97.0 F L Temperature Source Temporal Pulse Rate (60-100) 53 L Pulse Location Monitor Respiratory Rate (12-18) 17 Respiratory rate source Observation Oxygen Delivery Method Room Air Blood Pressure (90/60-120/80) 129/76 H Blood Pressure Mean (mm Hg) 93 Source Doppler/Manual Blood Pressure Location Left Arm History Since Last Visit- (Skip if this is Patient's initial visit) Have you changed medications since your No last visit? Any new allergies or adverse reactions No Had a fall/change in ADL's that may No increase risk of falls Signs or symptoms of abuse and/or No neglect since last visit Have you been in the hospital since your No last visit? Has dressing in place as prescribed Yes Has compression in place as prescribed N/A Has offloadiing in place as prescribed N/A Experienced any changes in pain level or No management Left Footwear Regular Shoe Right Footwear Regular Shoe Pain Scale: 0-10 Numeric Is Patient Pain Free? Yes CHRISTOPHE - Nurse 1 - General Ulcer Measurement Start: 07/14/25 08:09 Freq: Status: Active Protocol: Activity Type Activity Date Activity User E-sign Co-sign Detail Recorded Client Recorded Date Recorded By Document 07/14/25 08:09 TS [id number] 07/14/25 08:15 TS 07/14/25 08:09 Wound Center Nurse 1 #1 r post le cluster -Combined with other wound No -Current Size (cm) - Length 5 -Current Size (cm) - Width 5 -Current Size (cm) - Depth 0.2 -Total Square Cm 25 -Date of Last Picture (Recall this 07/14/25 field) -Tunneling No -Undermining/Tunneling No -Circular Undermining No -Exudate Amt Medium -Exudate Type Yellow/Green -Wound Margin Distinct, Outline Attached -Granulation Amt Medium (34-66%) -Granulation Quality [place],Red -Slough/Fibrin Yes -Necrosis Amt Medium (34-66%) -Necrotic Tissue Type Adherent Slough -Structure Exposed None/Limited to Skin Breakdown -Texture (Armida-wound Skin Appearance) Assessed -Moisture (Armida-wound Skin Appearance) Assessed -Color (Armida-wound Skin Appearance) Assessed, Erythema -Temperature (Armida-wound Skin No Abnormality Appearance) (Pt Warm) -Tenderness on Palpation (Armida-wound No Skin Appearance) -Ulcer Cleansing Soap and Water -Foul Odor after Cleansing No -Anesthetic Used 5% Lidocaine Gel WC - Nurse 2 - General Ulcer CM Notes Start: 07/14/25 08:09 Freq: Status: Active Protocol: Activity Type Activity Date Activity User E-sign Co-sign Detail Recorded Client Recorded Date Recorded By Document 07/14/25 08:18 ASAD [id number] 07/14/25 08:23 JF 07/14/25 08:18 Wound Center Nurse 2 -Time 08:19 -Correct Patient Yes -Correct Side, Site, Position Yes -Correct Procedure Yes -Procedure Performed Yes -Type of Procedure Debridement -Clinical Debridement Muscle / Fascia -Tissue Removed Muscle -Post Debridement (cm) - Length 4.7 -Post Debridement (cm) - Width 5.3 -Post Debridement (cm) - Depth 0.5 -Total Square (Post) (cm) 24.91 -Area of Debridement (cm) - Length 4.7 -Area of Debridement (cm) - Width 5.3 -Total Square (Area) (cm) 24.91 -Tunneling No -Undermining/Tunneling No -Circular Undermining No -Wound/Ulcer Outcome Not Healed -Ulcer Cleansing Rinsed/ Irrigated with Saline -Foul Odor after Cleansing No -Bioengineered Tissue No -Bleeding Controlled with Pressure -Treatment Response Procedure Tolerated Well -Offloading No -Debridement - Muscle / Fascia, 1st Yes 20sq cm -Debridement, Muscle/Fascia, ea addt'l 1 20sq cm or part thereof Pain Scale: 0-10 Numeric Is Patient Pain Free? Yes WC - Nurse 3 - General Ulcer D/C NN Start: 07/14/25 08:09 Freq: Status: Active Protocol: Activity Type Activity Date Activity User E-sign Co-sign Detail Recorded Client Recorded Date Recorded By Document 07/14/25 08:37 CP [id number] 07/14/25 08:37 CP 07/14/25 08:37 Wound Care Center Nurse 3 #1 r post le cluster -Ulcer Cleansing Rinsed/ Irrigated with Saline -Foul Odor after Cleansing No -Other Dressing dakins moist gauze -Primary Dressing Covered/Secured with Dry Gauze & Roll Gauze RLE -Compression Wrap Anam Wrap Pain Scale: 0-10 Numeric Is Patient Pain Free? 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 All findings were discussed with the patient. All questions were answered to the patient's satisfaction. Excisional debridement down to and including subcutaneous tissue, fascia and muscle with a number 5 mm dermal curette to the full-thickness wound to the posterior right leg. Done without incident. Predebridement measurement was 4.5 x 5.1 by 0.3 cm. Postdebridement measurements 4.7 x 5.3 x 0.5 cm. The areas were cleaned and patted dry. They send moist gauze followed by dry sterile dressing and compression wrap from sulcus of toes to mid calf was applied. Due to the increased redness to the periwound of the right lower extremity the patient will be placed on Augmentin 875 twice daily for 2 weeks. Culture was taken in office today and will adjust antibiotics as needed. Patient will continue strict blood sugar control. He will change daily with Dakin solution dry sterile dressing and compression wrap. Once the wound and the erythema is improving we will move forward with collagen application Follow-up at the wound care center with Dr. Conte in 1 week. (2) Chronic painful diabetic polyneuropathy: CODE(S): E11.42 - Type 2 diabetes mellitus with diabetic polyneuropathy
--- NOTE | 2025-07-15 11:59 | WC ---
PHOTO-RIGHT POST LE 07/14/25
[2025-07-21 08:07] VITALS: BP 141/66; PULSE 57; RESP 18; TEMP 36.2
--- NOTE | 2025-07-21 08:47 | PN.PCM_ITS ---
History of Present Illness Date of Service: 07/21/25 Chief Complaint: Full-thickness wound right posterior leg History of Wound: Chronic full-thickness wound right posterior leg secondary to dog bite Progress of Wound: Stable full-thickness wound slow to heal Subjective Subjective Patient is a 70-year-old diabetic male presenting to wound care center today follow-up evaluation of full-thickness wound to the posterior right leg. Patient has been compliant with dressing changes. He admits the wound is still present and slowly healing. Redness and pain is all gone. He is almost finis hed with all his antibiotics. He is working 8 to 10 hours/day, as well as standing for long periods of time at work. He admits to minimal drainage. He denies trauma. Denies constitutional symptoms. No other pedal complaints at this time. Objective Data Objective Data Vital Signs: Vital Signs Temp Pulse Resp BP O2 Del Method 97.2 F L 57 L 18 141/66 H Room Air 07/21/25 08:07 07/21/25 08:07 07/21/25 08:07 07/21/25 08:07 07/21/25 08:07 Oxygen Delivery Method Room Air Lab / Micro Data Micro: Microbiology 07/14/25 08:20 Wound - Leg, Right Gram Stain - Final 07/14/25 08:20 Wound - Leg, Right Wound Culture - Final Pseudomonas aeruginosa 07/14/25 08:20 Wound - Leg, Right Anaerobic Culture - Final No anaerobic bacteria isolated. Physical Exam Narrative Vascular: DP and PT pulses are palpable to right lower extremity. CFT is brisk. Skin temperature gradient is warm to warm from proximal ankle to distal digits. No erythema. Nonpitting edema. Neurological: Light touch is intact. Patient is responding to painful stimuli. Dermatological: Full-thickness wound to the posterior right leg measuring 4.7 x 5.4 x 0.5 cm. Wound base is fibrogranular nature. No tunneling. No malodor. No drainage. Excisional debridement down to and including subcutaneous tissue, fascia and mus caitlin with a number 5 mm dermal curette to the full-thickness wound to the posterior right leg. Done without incident. Predebridement measurement was 4.6 x 5.2 x 0.3 cm. Postdebridement measurements 4.7 x 5.4 x 0.5 cm. Musculoskeletal: No pain to palpation to full-thickness wound. No pain with calf pressure. Debridement Note Debridement Note Debridement Free Text: Excisional debridement down to and including subcutaneous tissue, fascia and muscle with a number 5 mm dermal curette to the full- thickness wound to the posterior right leg. Done without incident. Predebridement measurement was 4.6 x 5.2 x 0.3 cm. Postdebridement measurements 4.7 x 5.4 x 0.5 cm. Post-Debridement Measurements and Additional Note: Post-Debridement Measurements/Treatment - Nurse 1 - General Ulcer Assessment Start: 07/14/25 08:09 Freq: Status: Active Protocol: CHRISTOPHE.LOWEXT Activity Type Activity Date Activity User E-sign Co-sign Detail Recorded Client Recorded Date Recorded By Document 07/14/25 08:09 TS [id number] 07/14/25 08:15 TS Document 07/21/25 08:07 [id number] 07/21/25 08:08 07/14/25 07/21/25 08:09 08:07 - Today's Visit Information Type of service Follow-up Visit Follow-up Visit (Physician/COMMERCIAL LOAN ANALYST (Physician/COMMERCIAL LOAN ANALYST ) ) Arrival Mode Ambulatory Ambulatory Patient Identification Verified (Name & Yes ) Patient Requires Transmission-Based No Precautions Safety Precautions Fall Prevention Vital Signs Temperature (97.8 F-99.1 F) 97.0 F L 97.2 F L Temperature Source Temporal Temporal Pulse Rate (60-100) 53 L 57 L Pulse Location Monitor Monitor Respiratory Rate (12-18) 17 18 Respiratory rate source Observation Observation Oxygen Delivery Method Room Air Room Air Blood Pressure (90/60-120/80) 129/76 H 141/66 H Blood Pressure Mean (mm Hg) 93 91 Source Doppler/Manual Monitor Position Supine Blood Pressure Location Left Arm Left Arm History Since Last Visit- (Skip if this is Patient's initial visit) Have you changed medications since your No No last visit? Any new allergies or adverse reactions No No Had a fall/change in ADL's that may No No increase risk of falls Signs or symptoms of abuse and/or No No neglect since last visit Have you been in the hospital since your No No last visit? Has dressing in place as prescribed Yes Yes Has compression in place as prescribed N/A Yes Has offloadiing in place as prescribed N/A Yes Experienced any changes in pain level or No No management Left Footwear Regular Shoe Right Footwear Regular Shoe Pain Scale: 0-10 Numeric Is Patient Pain Free? Yes Yes WC - Nurse 1 - General Ulcer Measurement Start: 07/14/25 08:09 Freq: Status: Active Protocol: Activity Type Activity Date Activity User E-sign Co-sign Detail Recorded Client Recorded Date Recorded By Document 07/14/25 08:09 TS [id number] 07/14/25 08:15 TS Document 07/21/25 08:07 GM [id number] 07/21/25 08:08 07/14/25 07/21/25 08:09 08:07 Wound Center Nurse 1 #1 r post le cluster -Combined with other wound No -Current Size (cm) - Length 5 0.1 -Current Size (cm) - Width 5 0.1 -Current Size (cm) - Depth 0.2 0.1 -Total Square Cm 25 0.01 -Date of Last Picture (Recall this 07/14/25 07/21/25 field) -Photo Taken Yes -Epithelialization None Present -Tunneling No No -Undermining/Tunneling No No -Circular Undermining No No -Exudate Amt Medium Large -Exudate Type Yellow/Green Yellow/Green -Wound Margin Distinct, Distinct, Outline Outline Attached Attached -Granulation Amt Medium (34-66%) Large (67-100%) -Granulation Quality [place] -Slough/Fibrin Yes Yes -Necrosis Amt Medium (34-66%) Small (1-33%) -Necrotic Tissue Type Adherent Slough Adherent Slough -Structure Exposed None/Limited to Skin Breakdown -Texture (Armida-wound Skin Appearance) Assessed Assessed -Moisture ([place]-wound Skin Appearance) Assessed Assessed -Color (Armida-wound Skin Appearance) Assessed, Assessed Erythema -Temperature ([place]-wound Skin No Abnormality No Abnormality Appearance) (Pt Warm) (Pt Warm) -Tenderness on Palpation (Armida-wound No No Skin Appearance) -Ulcer Cleansing Soap and Water Soap and Water -Foul Odor after Cleansing No No -Anesthetic Used 5% Lidocaine 5% Lidocaine Gel Gel WC - Nurse 2 - General Ulcer CM Notes Start: 07/14/25 08:09 Freq: Status: Active Protocol: Activity Type Activity Date Activity User E-sign Co-sign Detail Recorded Client Recorded Date Recorded By Document 07/14/25 08:18 JF [id number] 07/14/25 08:23 JF Document 07/21/25 08:18 JF [id number] 07/21/25 08:20 JF 07/14/25 07/21/25 08:18 08:18 Wound Center Nurse 2 #1 r post le cluster -Time 08:19 08:18 -Correct Patient Yes Yes -Correct Side, Site, Position Yes Yes -Correct Procedure Yes Yes -Procedure Performed Yes Yes -Type of Procedure Debridement Debridement -Clinical Debridement Muscle / Fascia Muscle / Fascia -Tissue Removed Muscle Muscle -Post Debridement (cm) - Length 4.7 4.7 -Post Debridement (cm) - Width 5.3 5.4 -Post Debridement (cm) - Depth 0.5 0.5 -Total Square (Post) (cm) 24.91 25.38 -Area of Debridement (cm) - Length 4.7 4.7 -Area of Debridement (cm) - Width 5.3 5.4 -Total Square (Area) (cm) 24.91 25.38 -Tunneling No No -Undermining/Tunneling No No -Circular Undermining No No -Wound/Ulcer Outcome Not Healed Not Healed -Ulcer Cleansing Rinsed/ Rinsed/ Irrigated with Irrigated with Saline Saline -Foul Odor after Cleansing No No -Bioengineered Tissue No No -Bleeding Controlled with Pressure Pressure -Treatment Response Procedure Procedure Tolerated Well Tolerated Well -Offloading No No -Debridement - Muscle / Fascia, 1st Yes Yes 20sq cm -Debridement, Muscle/Fascia, ea addt'l 1 1 20sq cm or part thereof Pain Scale: 0-10 Numeric Is Patient Pain Free? Yes Yes WC - Nurse 3 - General Ulcer D/C NN Start: 07/14/25 08:09 Freq: Status: Active Protocol: Activity Type Activity Date Activity User E-sign Co-sign Detail Recorded Client Recorded Date Recorded By Document 07/14/25 08:37 CP [id number] 07/14/25 08:37 CP Document 07/21/25 08:33 GM [id number] 07/21/25 08:33 07/14/25 07/21/25 08:37 08:33 Wound Care Center Nurse 3 #1 r post le cluster -Ulcer Cleansing Rinsed/ Not Cleansed Irrigated with Saline -Foul Odor after Cleansing No No -Primary Dressing Applied Fibracol Plus 4x4 -Other Dressing dakins moist ABD PAD gauze -Primary Dressing Covered/Secured with Dry Gauze & Dry Gauze & Roll Gauze Roll Gauze, Secured with Tape -Fibracol Plus 4x4 2 RLE -Lotion applied to leg before No compression wrap -Compression Wrap Anam Wrap Anam Wrap Pain Scale: 0-10 Numeric Is Patient Pain Free? 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 All findings were discussed with the patient. All questions were answered to the patient's satisfaction. Excisional debridement down to and including subcutaneous tissue, fascia and muscle with a number 5 mm dermal curette to the full-thickness wound to the posterior right leg. Done without incident. Predebridement measurement was 4.6 x 5.2 x 0.3 cm. Postdebridement measurements 4.7 x 5.4 x 0.5 cm. The right lower extremity was wiped plain and patted dry. The full-thickness wound was dressed with fibracal dry sterile dressing and compression wrap. Patient will be getting extra supplies through his insurance. He will change dressings every other day. I informed the patient that he is to leave the dressing clean dry and intact and may wash his wound every other day with warm water and antibacterial soap on days that he is changing the dressing. He will continue strict blood sugar control. Follow-up at the wound care center with Dr. Conte in 1 week. (2) Chronic painful diabetic polyneuropathy: CODE(S): E11.42 - Type 2 diabetes mellitus with diabetic polyneuropathy
[2025-07-28 08:11] VITALS: BP 133/82; PULSE 52; RESP 18; TEMP 36.2
--- NOTE | 2025-07-28 08:51 | PN.PCM_ITS ---
History of Present Illness Date of Service: 07/28/25 Chief Complaint: Full-thickness wound right posterior leg History of Wound: Chronic full-thickness wound right posterior leg secondary to dog bite Progress of Wound: Stable full-thickness wound slow to heal Subjective Subjective Patient is a 70-year-old diabetic male presenting to wound care center today follow-up evaluation of full-thickness wound to posterior aspect of right lower extremity. Patient is a diabetic with controlled numbers. He is doing dressing changes with moist fibracal every other day as discussed. He mitts improvement to the wound. He denies trauma. Denies constitutional symptoms. No other pedal complaints at this time Objective Data Objective Data Vital Signs: Vital Signs Temp Pulse Resp BP O2 Del Method 97.1 F L 52 L 18 133/82 H Room Air 07/28/25 08:11 07/28/25 08:11 07/28/25 08:11 07/28/25 08:11 07/28/25 08:11 Oxygen Delivery Method Room Air Lab / Micro Data Micro: Microbiology 07/14/25 08:20 Wound - Leg, Right Gram Stain - Final 07/14/25 08:20 Wound - Leg, Right Wound Culture - Final Pseudomonas aeruginosa 07/14/25 08:20 Wound - Leg, Right Anaerobic Culture - Final No anaerobic bacteria isolated. Physical Exam Narrative Vascular: DP and PT pulses are palpable to right lower extremity. CFT is brisk. Skin temperature gradient is warm to warm from proximal ankle to distal digits. No erythema. Nonpitting edema. Neurological: Light touch is intact. Patient is responding to painful stimuli. Dermatological: Full-thickness wound to the posterior right leg measuring 4.7 x 5.4 x 0.5 cm wound base is fibrogranular nature. No tunneling. No malodor. No drainage. Excisional debridement down to and including subcutaneous tissue, fascia and muscle with a number 5 mm dermal curette to the full-thickness wound to the posterior right leg. Done without incident. Predebridement measurement was 4.5 x 5.3 x 0.4 cm. Postdebridement measurements 4.7 x 5.4 x 0.5 cm. Musculoskeletal: No pain to palpation to full-thickness wound. No pain with calf pressure. Debridement Note Debridement Note Debridement Free Text: Excisional debridement down to and including subcutaneous tissue, fascia and muscle with a number 5 mm dermal curette to the full- thickness wound to the posterior right leg. Done without incident. Predebridement measurement was 4.5 x 5.3 x 0.4 cm. Postdebridement measurements 4.7 x 5.4 x 0.5 cm. Post-Debridement Measurements and Additional Note: Post-Debridement Measurements/Treatment WC - Nurse 1 - General Ulcer Assessment Start: 07/14/25 08:09 Freq: Status: Active Protocol: JOSÉ LUIS Activity Type Activity Date Activity User E-sign Co-sign Detail Recorded Client Recorded Date Recorded By Document 07/14/25 08:09 TS [id number] 07/14/25 08:15 TS Document 07/21/25 08:07 GM [id number] 07/21/25 08:08 GM Document 07/28/25 08:11 GM [id number] 07/28/25 08:23 07/14/25 07/21/25 07/28/25 08:09 08:07 08:11 WC - Today's Visit Information Type of service Follow-up Visit Follow-up Visit Initial Visit (Physician/GROUND WATER PUMP INSTALLER (Physician/GROUND WATER PUMP INSTALLER ) ) Arrival Mode Ambulatory Ambulatory Ambulatory Patient Identification Verified (Name & Yes Yes ) Patient Requires Transmission-Based No Precautions Safety Precautions Fall Prevention Vital Signs Temperature (97.8 F-99.1 F) 97.0 F L 97.2 F L 97.1 F L Temperature Source Temporal Temporal Temporal Pulse Rate (60-100) 53 L 57 L 52 L Pulse Location Monitor Monitor Monitor Respiratory Rate (12-18) 17 18 18 Respiratory rate source Observation Observation Monitor Oxygen Delivery Method Room Air Room Air Room Air Blood Pressure (90/60-120/80) 129/76 H 141/66 H 133/82 H Blood Pressure Mean (mm Hg) 93 91 99 Source Doppler/Manual Monitor Monitor Position Supine Sitting Blood Pressure Location Left Arm Left Arm Right Arm History Since Last Visit- (Skip if this is Patient's initial visit) Have you changed medications since your No No No last visit? Any new allergies or adverse reactions No No No Had a fall/change in ADL's that may No No No increase risk of falls Signs or symptoms of abuse and/or No No No neglect since last visit Have you been in the hospital since your No No No last visit? Has dressing in place as prescribed Yes Yes Yes Has compression in place as prescribed N/A Yes Yes Has offloadiing in place as prescribed N/A Yes N/A Experienced any changes in pain level or No No No management Left Footwear Regular Shoe Right Footwear Regular Shoe Pain Scale: 0-10 Numeric Is Patient Pain Free? Yes Yes Yes WC - Nurse 1 - General Ulcer Measurement Start: 07/14/25 08:09 Freq: Status: Active Protocol: Activity Type Activity Date Activity User E-sign Co-sign Detail Recorded Client Recorded Date Recorded By Document 07/14/25 08:09 TS [id number] 07/14/25 08:15 TS Document 07/21/25 08:07 GM [id number] 07/21/25 08:08 GM Document 07/28/25 08:11 GM [id number] 07/28/25 08:23 07/14/25 07/21/25 07/28/25 08:09 08:07 08:11 Wound Center Nurse 1 #1 r post le cluster -Combined with other wound No No -Current Size (cm) - Length 5 0.1 4.0 -Current Size (cm) - Width 5 0.1 4.8 -Current Size (cm) - Depth 0.2 0.1 0.3 -Total Square Cm 25 0.01 19.20 -Date of Last Picture (Recall this 07/14/25 07/21/25 07/28/25 field) -Photo Taken Yes Yes -Epithelialization None Present Small 1-33% -Tunneling No No No -Undermining/Tunneling No No No -Circular Undermining No No No -Exudate Amt Medium Large Large -Exudate Type Yellow/Green Yellow/Green Yellow/Green -Wound Margin Distinct, Distinct, Distinct, Outline Outline Outline Attached Attached Attached -Granulation Amt Medium (34-66%) Large (67-100%) Small (1-33%) -Granulation Quality [place] -Slough/Fibrin Yes Yes Yes -Necrosis Amt Medium (34-66%) Small (1-33%) Medium (34-66%) -Necrotic Tissue Type Adherent Slough Adherent Slough -Structure Exposed None/Limited to Skin Breakdown -Texture ([place]-wound Skin Appearance) Assessed Assessed Assessed -Moisture ([place]-wound Skin Appearance) Assessed Assessed Assessed -Color ([place]-wound Skin Appearance) Assessed, Assessed Assessed Erythema -Temperature ([place]-wound Skin No Abnormality No Abnormality No Abnormality Appearance) (Pt Warm) (Pt Warm) (Pt Warm) -Tenderness on Palpation ([place]-wound No No No Skin Appearance) -Ulcer Cleansing Soap and Water Soap and Water Soap and Water -Foul Odor after Cleansing No No No -Anesthetic Used 5% Lidocaine 5% Lidocaine 4% Lidocaine Gel Gel Solution WC - Nurse 2 - General Ulcer CM Notes Start: 07/14/25 08:09 Freq: Status: Active Protocol: Activity Type Activity Date Activity User E-sign Co-sign Detail Recorded Client Recorded Date Recorded By Document 07/14/25 08:18 [id number] 07/14/25 08:23 Document 07/21/25 08:18 [id number] 07/21/25 08:20 Document 07/28/25 08:28 [id number] 07/28/25 08:31 07/14/25 07/21/25 07/28/25 08:18 08:18 08:28 Wound Center Nurse 2 #1 r post le cluster -Time 08:19 08:18 08:28 -Correct Patient Yes Yes Yes -Correct Side, Site, Position Yes Yes Yes -Correct Procedure Yes Yes Yes -Procedure Performed Yes Yes Yes -Type of Procedure Debridement Debridement Debridement -Clinical Debridement Muscle / Fascia Muscle / Fascia Muscle / Fascia -Tissue Removed Muscle Muscle Muscle -Post Debridement (cm) - Length 4.7 4.7 4.7 -Post Debridement (cm) - Width 5.3 5.4 5.4 -Post Debridement (cm) - Depth 0.5 0.5 0.5 -Total Square (Post) (cm) 24.91 25.38 25.38 -Area of Debridement (cm) - Length 4.7 4.7 4.7 -Area of Debridement (cm) - Width 5.3 5.4 5.4 -Total Square (Area) (cm) 24.91 25.38 25.38 -Tunneling No No No -Undermining/Tunneling No No No -Circular Undermining No No No -Wound/Ulcer Outcome Not Healed Not Healed Not Healed -Ulcer Cleansing Rinsed/ Rinsed/ Rinsed/ Irrigated with Irrigated with Irrigated with Saline Saline Saline -Foul Odor after Cleansing No No No -Bioengineered Tissue No No No -Bleeding Controlled with Pressure Pressure Pressure -Treatment Response Procedure Procedure Procedure Tolerated Well Tolerated Well Tolerated Well -Offloading No No No -Debridement - Muscle / Fascia, 1st Yes Yes Yes 20sq cm -Debridement, Muscle/Fascia, ea addt'l 1 1 1 20sq cm or part thereof Pain Scale: 0-10 Numeric Is Patient Pain Free? Yes Yes Yes - Nurse 3 - General Ulcer D/C NN Start: 07/14/25 08:09 Freq: Status: Active Protocol: Activity Type Activity Date Activity User E-sign Co-sign Detail Recorded Client Recorded Date Recorded By Document 07/14/25 08:37 CP [id number] 07/14/25 08:37 CP Document 07/21/25 08:33 GM [id number] 07/21/25 08:33 GM Document 07/28/25 08:38 ML [id number] 07/28/25 08:39 ML 07/14/25 07/21/25 07/28/25 08:37 08:33 08:38 Wound Care Center Nurse 3 #1 r post le cluster -Ulcer Cleansing Rinsed/ Not Cleansed Rinsed/ Irrigated with Irrigated with Saline Saline -Foul Odor after Cleansing No No -Primary Dressing Applied Fibracol Plus Fibracol Plus 4x4 4x4 -Other Dressing dakins moist ABD PAD anam gauze -Primary Dressing Covered/Secured with Dry Gauze & Dry Gauze & Dry Gauze & Roll Gauze Roll Gauze, Roll Gauze, Secured with Secured with Tape Tape -Fibracol Plus 4x4 2 1 RLE -Lotion applied to leg before No compression wrap -Compression Wrap Anam Wrap Anam Wrap Pain Scale: 0-10 Numeric Is Patient Pain Free? 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 All findings were discussed with the patient. All questions were answered to the patient's satisfaction. Excisional debridement down to and including subcutaneous tissue, fascia and muscle with a number 5 mm dermal curette to the full-thickness wound to the posterior right leg. Done without incident. Predebridement measurement was 4.5 x 5.3 x 0.4 cm. Postdebridement measurements 4.7 x 5.4 x 0.5 cm. The right lower extremity was wiped plain and patted dry. The full-thickness wound was dressed with fibracal dry sterile dressing and compression wrap. Patient will continue every other day dressing changes as well as compression wrap to the right lower extremity. Educated patient to elevate whenever he is at rest. He will continue strict blood sugar troll. Follow-up at the wound care center with Dr. Conte in 1 week in private office and then follow-up with the wound care center in 2 weeks. (2) Chronic painful diabetic polyneuropathy: CODE(S): E11.42 - Type 2 diabetes mellitus with diabetic polyneuropathy
--- NOTE | 2025-07-29 09:13 | WC ---
PHOTO-RIGHT POST LE 07/28/25
== END 2025-08-08 23:59 | disposition home or self-care (01) ==
LOC: WC 08:00
PROVIDERS: PCP Nurse Practitioner Family; Referring Provider Nurse Practitioner Family; Visit Provider Podiatrist Foot & Ankle Surgery
DX: E11.622 Type 2 diabetes mellitus with other skin ulcer (principal); L97.813 Non-pressure chronic ulcer of other part of right lower leg with necrosis of muscle; E11.42 Type 2 diabetes mellitus with diabetic polyneuropathy
CPT/HCPCS: 11043; 11046; 87070; 87075; 87077; 87186; 87205

== ENCOUNTER 2025-08-25 08:50 | Outpatient (CLI) | payer OTHER, SELFPAY ==
[2025-08-25 09:00] VITALS: BP 135/78; PULSE 58; RESP 16; TEMP 36.1; O2SAT 100
[2025-08-25] MEDS: Piperacil/Tazobactam 3.375 GM in 0.9% Normal Saline (50mL MB+) 50 ML IV (09:05)
[2025-08-25 09:58] VITALS: BP 138/63; PULSE 52; RESP 16
== END 2025-08-25 23:59 | disposition home or self-care (01) ==
LOC: MEDOUTP 08:51
PROVIDERS: PCP Nurse Practitioner Family; Referring Provider Internal Medicine Infectious Disease; Visit Provider Internal Medicine Infectious Disease
DX: A49.8 Other bacterial infections of unspecified site (principal)
CPT/HCPCS: 96365; A4216

== ENCOUNTER → 2025-08-25 | Outpatient (CLI) | payer OTHER, SELFPAY ==
[2025-08-25 08:00] VITALS: BP 141/64; PULSE 58; TEMP 36.1; O2SAT 100; BMI 41.9
== END | disposition home or self-care (01) ==
PROVIDERS: PCP Nurse Practitioner Family; Referring Provider Internal Medicine Infectious Disease; Visit Provider Internal Medicine Infectious Disease
DX: A49.8 Other bacterial infections of unspecified site (principal)
CPT/HCPCS: 36569